=== PATIENT | female | born 1950 | race Caucasian/White ===

== ENCOUNTER 2018-08-07 10:58 | Emergency (ER) | payer OTHER, BC ==
--- OUTSIDE RECORDS SUMMARY | 2018-08-07 11:00 | XMS REPORT | Clinical Summary ---
:1950 Author Organization [facility] Address [address] [place] [address] Care Team Providers Name Role Phone LcJonathan glover Primary Care Provider Allergies Active Allergy Reactions Severity Noted Date Comments Adhesive Rash Low 11/03/2017 Codeine Anaphylaxis High 11/02/2017 Medications Medication Sig Dispensed Refills Start Date End Date Status losartan (COZAAR) 50 MG Take 50 mg by 0 Active tablet mouth daily. DULoxetine (CYMBALTA) 60 Take 60 mg by 0 Active MG capsule mouth daily. pantoprazole (PROTONIX) Take 40 mg by 0 Active 40 MG tablet mouth daily. hydroCHLOROthiazide Take 25 mg by 0 Active (HYDRODIURIL) 25 MG mouth daily. tablet amoxicillin (AMOXIL) 500 Take 1 10 capsule 0 11/23/2017 MG capsule capsule (500 8 mg total) by mouth 2 (two) times daily for 5 days. traMADol (ULTRAM) 50 mg Take 2 20 tablet 0 11/23/2017 tablet tablets (100 8 mg total) by mouth every 6 (six) hours as needed for Pain for up to 5 days. Max Daily Amount: 400 mg Active Problems Not on file Encounters Date Type Specialty Care Team Description 11/23/2017 Anesthesia Event Chavez Albert MD 11/23/2017 Surgery Link, Leonel CYSTOSCOPY,INSERTION MD Bryson URETERAL STENTS 11/23/2017 Hospital Encounter Link, Leonel Massey MD 11/03/2017 Hospital Encounter Link, Leonel Massey MD 11/03/2017 Hospital Encounter Cardiology Link, Leonel Massey MD 11/03/2017 Hospital Encounter Pre-Admission Link, Leonel Massey, MD 11/03/2017 Outside Orders Leonel Garces MD 10/30/2017 Orders Only Pre-Admission Arleth Sweeney Testing after 08/06/2017 Social History Tobacco Use Types Packs/Day Years Used Date Never Smoker Smokeless Tobacco: Never Used Alcohol Use Drinks/Week oz/Week Comments No Sex Assigned at Date Recorded Not on file Job Start Date Occupation Industry Not on file Not on file Not on file Travel History Travel Start Travel End No recent travel history available. Last Filed Vital Signs Vital Sign Reading Time Taken Blood Pressure 125/90 11/23/2017 6:15 PM CDT Pulse 66 11/23/2017 6:15 PM CDT Temperature 36.6 C (97.8 F) 11/23/2017 6:00 PM CDT Respiratory Rate 16 11/23/2017 6:15 PM CDT Oxygen Saturation 96% 11/23/2017 6:15 PM CDT Inhaled Oxygen Concentration - - Weight 113.2 kg (249 lb 8 oz) 11/23/2017 10:33 AM CDT Height 168.9 cm (5' 6.5") 11/23/2017 10:33 AM CDT Body Mass Index 39.67 11/23/2017 10:33 AM CDT Plan of Treatment Not on file Implants Implanted Type Area Land Acquisition Analyst Device Shelf Model / Identifier Expiration Serial / Date Lot Set Stent Injection 6x26cm [id number] - [id number] Uro Stent Right: [place] [id number] / Implanted: Qty: 1 on 11/23/2017 by Leonel Garces MD [employer]: ONCOLOGY / [id number] Procedures Procedure Name Priority Date/Time Associated Comments Diagnosis [place] MATHEMATICAL STATISTICIAN IN OR 30 Routine 11/23/2017 5:15 Results for this MINUTE INCREMENTS PM CDT procedure are in the results section. STONE ANALYSIS Routine 11/23/2017 4:24 Results for this PM CDT procedure are in the results section. CYSTOSCOPY,BALLOON 11/23/2017 2:30 Renal stone DILATION URETERAL PM CDT STRICTURE CYSTOSCOPY,URETEROSCO 11/23/2017 2:30 Renal stone PY W/ LASER PM CDT LITHOTRIPSY CYSTOSCOPY,INSERTION 11/23/2017 2:30 Renal stone URETERAL STENTS PM CDT XR CHEST 2 VIEWS Routine 11/03/2017 11:01 Results for this AM CDT procedure are in the results section. CBC W/PLT COUNT & Routine 11/03/2017 10:39 Results for this AUTO DIFFERENTIAL AM CDT procedure are in the results section. URINALYSIS W/ Routine 11/03/2017 10:39 Results for this MICROSCOPIC AM CDT procedure are in the results section. BASIC METABOLIC PANEL Routine 11/03/2017 10:39 Results for this (7) AM CDT procedure are in the results section. CBC W/PLT COUNT & Routine 11/03/2017 10:39 Results for this AUTO DIFFERENTIAL AM CDT procedure are in the results section. URINE CULTURE Routine 11/03/2017 10:39 Results for this AM CDT procedure are in the results section. ECG 12-LEAD Routine 11/03/2017 9:41 AM CDT Procedure Note - Interface, External Ris In - 11/03/2017 11:01 AM CDT Ventricular Rate 57 BPM Atrial Rate 57 BPM P-R Interval 158 ms QRS Duration 90 ms Q-T Interval 420 ms QTC Calculation(Bazett) 408 ms P Myrtle 14 degrees R Myrtle -33 degrees T Myrtle 41 degrees Sinus bradycardia Left axis deviation Voltage criteria for left ventricular hypertrophy Abnormal ECG No previous ECGs available ECG 12-LEAD Routine 11/03/2017 9:41 AM CDT after 08/06/2017 Results [place] radio repairer in or 30 minute increments (11/23/2017 5:15 PM CDT) Narrative Performed At FINAL REPORT [facility] Fluoroscopy nonspecific dated November 23, 1017 Comment: Total fluoroscopy time was 4 minutes and 29 seconds. Total number of fluoroscopy images were 1. The fluoroscopy study was provided to Dr. Garces for intraoperative procedure. No radiologist was present during the examination. Signed: Denita Garvey MD Report Verified Date/Time:11/23/2017 17:59:05 Reading Location: [address] Radiology Reading Room Procedure Note Interface, External Ris In - 11/23/2017 6:01 PM CDT FINAL REPORT Fluoroscopy nonspecific dated November 23, 1017 Comment: Total fluoroscopy time was 4 minutes and 29 seconds. Total number of fluoroscopy images were 1. The fluoroscopy study was provided to Dr. Garces for intraoperative procedure. No radiologist was present during the examination. Signed: Denita Garvey MD Report Verified Date/Time: 11/23/2017 17:59:05 Reading Location: [address] Radiology Reading Room Performing Organization Address [facility] Phone Number GE RIS STONE ANALYSIS (11/23/2017 4:24 PM CDT) Stone Source KIDNEY [facility] Nidus Not observed [facility] COMPONENT 1 ([facility]) See Below [facility] Comment: INCORPORATED Calcium Oxalate Dihydrate (Weddellite) 20% Calcium Oxalate Monohydrate (Whewellite) 80% COMPONENT 2 ([facility]) DNR [facility] Stone Weight 0.0760 g [facility] Comment: INCORPORATED The image will follow, unless test is cancelled or no picture is available to report. This test was developed and its analytical performance characteristics have been determined by [facility]. It has not been cleared or approved by the US Food and Drug Administration. This assay has been validated pursuant to the CLIA regulations and is used for clinical purposes. Specimen Calculus - Ureter, Right Narrative Performed At Performing Lab [facility] *[facility] [employer] [facility], [address] [place] [phone] Holly Bro MD, PhD Performing Organization Address [facility] Phone Number [facility], [place] [address] [facility] [address] [facility] XR chest 2 views (11/03/2017 11:01 AM CDT) Narrative Performed At FINAL REPORT [employer] Chest, 2 views. Clinical History: pre op Comparison Study: None Findings:The heart and lungs are within normal limits.The pleural spaces are clear.No significant bony or soft tissue abnormalities are seen. Impression: No active cardiopulmonary disease. Signed: Bong Oh MD Report Verified Date/Time:11/03/2017 11:09:46 Reading Location: [address] Radiology Reading Room Procedure Note Interface, External Ris In - 11/03/2017 11:11 AM CDT FINAL REPORT Chest, 2 views. Clinical History: pre op Comparison Study: None Findings: The heart and lungs are within normal limits. The pleural spaces are clear. No significant bony or soft tissue abnormalities are seen. Impression: No active cardiopulmonary disease. Signed: Bong Oh MD Report Verified Date/Time: 11/03/2017 11:09:46 Reading Location: [address] Radiology Reading Room Performing Organization Address City/State/Zipcode Phone Number GE RIS CBC with platelet count + automated diff (11/03/2017 10:39 AM CDT) WBC 7.9 3.5 - 10.5 K/L [facility] [place] RBC 5.56 (H) 3.93 - 5.22 M/L [facility] [place] Hemoglobin 14.8 11.2 - 15.7 GM/DL [facility] [place] Hematocrit 47.8 (H) 34.1 - 44.9 % [facility] [place] MCV 86.0 79.4 - 94.[address] [facility] [place] MCH 26.6 25.6 - 32.[address] [facility] MCHC 31.0 (L) 32.2 - 35.5 GM/DL [facility] [place] RDW 14.0 11.7 - 14.4 % [facility] [place] Platelets 304 150 - 450 K/CU MM [facility] [place] MPV 10.1 9.4 - 12.[address] [facility] nRBC 0 0 - 0 /[address] [facility] % Neutros 57 % [facility] [place] % Lymphs 32 % [facility] % Monos 8 % [facility] % Eos 2 % [facility] % Baso 1 % [facility] [place] # Neutros 4.48 1.56 - 6.13 K/L [facility] # Lymphs 2.51 1.18 - 3.74 K/L [facility] [place] # Monos 0.65 (H) 0.24 - 0.36 K/L [facility] [place] # Eos 0.12 0.04 - 0.36 K/L [facility] [place] # Baso 0.06 0.01 - 0.08 K/L [facility] [place] [place] Immature Granulocytes-Relative 1 0 - 1 % [facility] [place] Specimen Blood Performing Organization Address City/State/Zipcode Phone Number [facility] [address] [place] [address] CENTER Urinalysis w/Microscopic (11/03/2017 10:39 AM CDT) Color, UA Light Yellow [facility] [place] [place] Clarity, UA Clear [facility] Specific [place], UA 1.004 1.001 - 1.[address] [facility] [place] [place] pH, UA 5.5 5.0 - 8.[address] [facility] [place] Protein, UA Negative Negative [facility] [place] Glucose, UA Negative Negative [facility] Ketones, UA Negative Negative [facility] [place] Bilirubin, UA Negative Negative [facility] [place] Blood, UA Negative Negative [facility] [place] Nitrite, UA Negative Negative [facility] [place] [place] Leukocytes, UA Large (A) Negative [facility] Urobilinogen, UA 0.2 0.2 - 1.0 mg/dL [facility] [place] RBC, UA 2 /HPF [facility] WBC, UA 2 /HPF [facility] [place] [place] Bacteria, UA Rare [facility] Mucus Rare [facility] [place] Squam Epithel, UA 3 /HPF [facility] [place] Specimen Source [facility] Specimen Urine Performing Organization Address [facility]/Zipcode Phone Number [address] [phone] [place] Urine culture (11/03/2017 10:39 AM CDT) Result [facility] Result >100,000 col/mL Enterococcus [facility] species (A) [facility]ENTER Result >100,000 col/mL Enterococcus [facility] species (A)Comment: of a second MEDICAL CENTER type Specimen Urine Narrative Performed At 40-49,000 col/mL skin law [facility] [place] [place] Organism Antibiotic Method Susceptibility Enterococcus species Ampicillin <=2: Susceptible Enterococcus species Linezolid 2: Susceptible Enterococcus species Nitrofurantoin <=16: Susceptible Enterococcus species Tetracycline >=16: Resistant Enterococcus species Vancomycin 2: Susceptible Enterococcus species Ampicillin <=2: Susceptible Enterococcus species Linezolid 2: Susceptible Enterococcus species Nitrofurantoin <=16: Susceptible Enterococcus species Tetracycline >=16: Resistant Enterococcus species Vancomycin 2: Susceptible Performing Organization Address [facility]/Zipcode Phone Number [address] [address] [phone] [place] Basic Metabolic Panel (11/03/2017 10:39 AM CDT) Sodium 140 136 - 145 meq/L [facility] [place] Potassium 4.1 3.5 - 5.1 meq/L [facility] [place] Chloride 101 98 - 107 meq/L [facility] CO2 32 (H) 22 - 29 meq/L [facility] [place] [place] BUN 19 7 - 21 mg/dL [facility] Creatinine 1.01 0.57 - 1.25 mg/dL [facility] [place] Glucose 89 70 - 105 mg/dL [facility] [place] Calcium 10.3 (H) 8.4 - 10.2 mg/dL [facility] C[facility] EGFR 55Comment: ESTIMATED GFR IS mL/min/1.73 sq m [facility] NOT ACCURATE CREATININE MED[facility]ENTER CLEARANCE IN PREDICTING GLOMERULAR FILTRATION RATE. ESTIMATED GFR IS NOT APPLICABLE FOR DIALYSIS PATIENTS. Specimen Blood Performing Organization Address City/State/Zipcode Phone Number [facility] [address] [place] [address] [phone] CENTER ECG 12 lead (11/03/2017 9:41 AM CDT) Narrative Performed At Ventricular Rate 57 BPM GE MUSE Atrial Rate 57 BPM P-R Interval 158 ms QRS Duration 90 ms Q-T Interval 420 ms QTC Calculation(Bazett) 408 ms P Myrtle 14 degrees R Myrtle -33 degrees T Myrtle 41 degrees Sinus bradycardia Left axis deviation Voltage criteria for left ventricular hypertrophy Abnormal ECG No previous ECGs available Confirmed by MD JARED, NEMESIO ([id number]) on 11/03/2017 1:25:01 PM Procedure Note Interface, External Ris In - 11/03/2017 1:25 PM CDT Ventricular Rate 57 BPM Atrial Rate 57 BPM P-R Interval 158 ms QRS Duration 90 ms Q-T Interval 420 ms QTC Calculation(Bazett) 408 ms P Myrtle 14 degrees R Myrtle -33 degrees T Myrtle 41 degrees Sinus bradycardia Left axis deviation Voltage criteria for left ventricular hypertrophy Abnormal ECG No previous ECGs available Confirmed by MD JARED, NEMESIO ([id number]) on 11/03/2017 1:25:01 PM Performing Organization Address City/State/Zipcode Phone Number GE MUSE after 08/06/2017 Insurance Payer Benefit Plan / Subscriber ID Type Phone Address Group MEDICARE MEDICARE A B xxxxxxxxxx Medicare BLUE CROSS/BLUE BCBS INDEMNITY [place] xxxxxxxxxxxx PPO [phone] [address] [place] [address]
--- OUTSIDE RECORDS SUMMARY | 2018-08-07 11:01 | XMS REPORT ---
:1950 Author [facility] Address [address] [place] [address] Care Team Providers Name Role Phone LINK, LYNDSEY WATSON Unavailable Unavailable Problems This patient has no known problems. Allergies, Adverse Reactions, Alerts This patient has no known allergies or adverse reactions. Medications This patient has no known medications. Results Test Description Test Time Test Comments Text Results Atomic Results Result Comments [facility] [place] 2017-11-23 17:59:00 Reason for FINAL REPORT PATIENT OR/30 MINUTE exam:->ureteral stent ID: [id number] INCREMENTS placement Fluoroscopy nonspecific dated November 23, 1017 Comment: Total fluoroscopy time was 4 minutes and 29 seconds. Total number of fluoroscopy images were 1. The fluoroscopy study was provided to Dr. Garces for intraoperative procedure. No radiologist was present during the examination. Signed: Denita Garveyeport Verified Date/Time: 11/23/2017 17:59:05 Reading Location: [address] Radiology Reading Room E CULTURE 2017-11-07 14:16:00 Test Item Value Reference Range Comments CULTURE (BEAKER) (test rebe=2890) Ampicillin (test code=26) Linezolid (test code=40) Nitrofurantoin (test code=23) Tetracycline (test code=2) Vancomycin (test code=13) CULTURE (BEAKER) (test ENTEROCOCCUS SPECIES >100,000 col/mL Enterococcus uzwd=5673) species Ampicillin (test code=26) Linezolid (test code=40) Nitrofurantoin (test code=23) Tetracycline (test code=2) Vancomycin (test code=13) CULTURE (BEAKER) (test >100,000 col/mL Enterococcus wljx=7321) speciesof a second type 40-49,000 col/mL skin floraURINALYSIS W/ [id number] 12:00:00 Test Item Value Reference Range Comments COLOR (BEAKER) (test pkvg=166) Light Yellow CLARITY (BEAKER) (test djcf=237) Clear SPECIFIC GRAVITY UA (BEAKER) (test mmnh=179) 1.004 1.001-1.035 PH UA (BEAKER) (test txsi=670) 5.5 5.0-8.0 PROTEIN UA (BEAKER) (test timh=715) Negative Negative GLUCOSE UA (BEAKER) (test smix=957) Negative Negative KETONES UA (BEAKER) (test scpk=991) Negative Negative BILIRUBIN UA (BEAKER) (test ifsy=793) Negative Negative BLOOD UA (BEAKER) (test fdwr=491) Negative Negative NITRITE UA (BEAKER) (test rcqd=170) Negative Negative LEUKOCYTE ESTERASE UA (BEAKER) (test aesa=219) Large Negative UROBILINOGEN UA (BEAKER) (test aizo=595) 0.2 mg/dL 0.2-1.0 RBC UA (BEAKER) (test hlei=427) 2 /HPF WBC UA (BEAKER) (test yjqh=573) 2 /HPF BACTERIA (BEAKER) (test ampy=060) Rare MUCUS (BEAKER) (test kchc=7517) Rare SQUAMOUS EPITHELIAL (BEAKER) (test kjhz=475) 3 /HPF SOURCE(BEAKER) (test dixr=1005) BASIC METABOLIC [id number] 11:33:00 Test Item Value Reference Range Comments SODIUM (BEAKER) (test 140 meq/L 136-145 yuau=217) POTASSIUM (BEAKER) (test 4.1 meq/L 3.5-5.1 lpus=746) CHLORIDE (BEAKER) (test 101 meq/L 98-107 kwjf=595) CO2 (BEAKER) (test 32 meq/L 22-29 ptla=366) BLOOD UREA NITROGEN 19 mg/dL 7-21 (BEAKER) (test nhkv=530) CREATININE (BEAKER) (test 1.01 mg/dL 0.57-1.25 wetr=719) GLUCOSE RANDOM (BEAKER) 89 mg/dL 70-105 (test tjyt=360) CALCIUM (BEAKER) (test 10.3 mg/dL 8.4-10.2 prhz=740) EGFR (BEAKER) (test 55 mL/min/1.73 sq m ESTIMATED GFR IS NOT vjyd=4493) ACCURATE CREATININE CLEARANCE IN PREDICTING GLOMERULAR FILTRATION RATE. ESTIMATED GFR IS NOT APPLICABLE FOR DIALYSIS PATIENTS. CBC W/PLT COUNT & AUTO [id number] 11:11:00 Test Item Value Reference Range Comments WHITE BLOOD CELL COUNT (BEAKER) (test ohcl=854) 7.9 K/ L 3.5-10.5 RED BLOOD CELL COUNT (BEAKER) (test sgod=231) 5.56 M/ L 3.93-5.22 HEMOGLOBIN (BEAKER) (test ggld=704) 14.8 GM/DL 11.2-15.7 HEMATOCRIT (BEAKER) (test efom=488) 47.8 % 34.1-44.9 MEAN CORPUSCULAR VOLUME (BEAKER) (test mloo=041) 86.0 fL 79.4-94.8 MEAN CORPUSCULAR HEMOGLOBIN (BEAKER) (test 26.6 pg 25.6-32.2 avyj=822) MEAN CORPUSCULAR HEMOGLOBIN CONC (BEAKER) (test 31.0 GM/DL 32.2-35.5 wkpm=388) RED CELL DISTRIBUTION WIDTH (BEAKER) (test 14.0 % 11.7-14.4 hput=016) PLATELET COUNT (BEAKER) (test mkhm=752) 304 K/CU MM 150-450 MEAN PLATELET VOLUME (BEAKER) (test trsr=579) 10.1 fL 9.4-12.3 NUCLEATED RED BLOOD CELLS (BEAKER) (test 0 /100 WBC 0-0 jdje=761) NEUTROPHILS RELATIVE PERCENT (BEAKER) (test 57 % ahvg=157) LYMPHOCYTES RELATIVE PERCENT (BEAKER) (test 32 % ytdc=884) MONOCYTES RELATIVE PERCENT (BEAKER) (test 8 % dwgt=118) EOSINOPHILS RELATIVE PERCENT (BEAKER) (test 2 % vnyd=245) BASOPHILS RELATIVE PERCENT (BEAKER) (test 1 % kxqw=160) NEUTROPHILS ABSOLUTE COUNT (BEAKER) (test 4.48 K/ L 1.56-6.13 bufz=274) LYMPHOCYTES ABSOLUTE COUNT (BEAKER) (test 2.51 K/ L 1.18-3.74 zfio=231) MONOCYTES ABSOLUTE COUNT (BEAKER) (test 0.65 K/ L 0.24-0.36 qrcj=219) EOSINOPHILS ABSOLUTE COUNT (BEAKER) (test 0.12 K/ L 0.04-0.36 xlzz=477) BASOPHILS ABSOLUTE COUNT (BEAKER) (test 0.06 K/ L 0.01-0.08 yhna=400) IMMATURE GRANULOCYTES-RELATIVE PERCENT (BEAKER) 1 % 0-1 (test cdps=6043) RAD, CHEST, 2 [id number] 11:09:00Reason for exam:->pre opShould this be performed at the bedside?->NoFINAL REPORT Chest, 2 views. Clinical History: pre op Comparison Study: None Findings: The heart and lungs are within normal limits. The pleural spaces are clear. No significant bony or soft tissue abnormalities are seen. Impression: No active cardiopulmonary disease. Signed:Bong Oh MDReport Verified Date/Time: 11:09:46 Reading Location: [address] Radiology Reading Room
[2018-08-07] MEDS ORDERED: CYCLOBENZAPRINE 10 MG TAB ONE (11:42)
[2018-08-07] MEDS ORDERED: HYDROCODONE/APAP 7.5/325 MG TAB ONE (11:43)
[2018-08-07] MEDS ORDERED: KETOROLAC 30 MG/ML INJ ONE (11:43)
--- NOTE | 2018-08-07 12:51 | ER ---
Nurse's Notes [facility] Name: Estelita Vinson Age: 67 yrs Sex: Female : 1950 Arrival Date: 08/07/2018 Time: 11:02 Bed 16 Private MD: Jonathan Iqbal Diagnosis: Sciatica, left side Presentation: 08/07 11:06 Presenting complaint: Patient states: "I've done something to my back. I moved some aj1 containers and it had too much stuff in it. I moved side to side and I knew it when I did it, its my lower back." Reports low back pain that radiates down left leg for the past 2 days. States that her pain has gotten worse today. Transition of care: patient was not received from another setting of care. Onset of symptoms was August 05, 2018. Risk Assessment: Do you want to hurt yourself or someone else? Patient reports no desire to harm self or others. Initial Sepsis Screen: Does the patient meet any 2 criteria? No. Patient's initial sepsis screen is negative. Does the patient have a suspected source of infection? No. Patient's initial sepsis screen is negative. Care prior to arrival: None. 11:06 Method Of Arrival: Ambulatory aj1 11:06 Acuity: CURT 4 aj1 Triage Assessment: 11:09 General: Appears in no apparent distress. uncomfortable, Behavior is calm, cooperative, aj1 appropriate for age. Pain: Complains of pain in low back area Pain currently is 7 out of 10 on a pain scale. Neuro: Level of Consciousness is awake, alert, obeys commands. Cardiovascular: Patient's skin is warm and dry. Respiratory: Airway is patent Respiratory effort is even, unlabored, Respiratory pattern is regular, symmetrical. Musculoskeletal: Range of motion: intact in all extremities. Historical: - Allergies: 11:09 CEPHALOSPORINS; aj1 - Home Meds: 11:09 losartan 50 mg oral tab 1 tab once daily [Active]; Cymbalta 60 mg oral cpDR 1 cap once aj1 daily [Active]; hydrochlorothiazide 25 mg Oral tab 1 tab once daily [Active]; doxepin 25 mg Oral cap 1 cap once daily [Active]; - PMHx: 11:09 Hypertension; renal cell carcinoma of left kidney; aj1 - PSHx: 11:09 partial nephrectomy on the right; Cholecystectomy; Hysterectomy; aj1 - Immunization history:: Flu vaccine is not up to date. - Social history:: Smoking status: Patient/guardian denies using tobacco. - Ebola Screening: : Patient denies travel to an Ebola-affected area in the 21 days before illness onset. Screenin:15 Abuse screen: Denies threats or abuse. Nutritional screening: No deficits noted. rb1 Tuberculosis screening: No symptoms or risk factors identified. Fall Risk None identified. Assessment: 11:15 General: Appears uncomfortable, Behavior is calm, cooperative. Pain: Complains of pain rb1 in lumbar area Pain radiates to left leg Pain currently is 7 out of 10 on a pain scale. Quality of pain is described as burning. Neuro: Level of Consciousness is awake, alert, obeys commands, Oriented to person, place, time, situation. Cardiovascular: Capillary refill < 3 seconds is brisk in bilateral fingers. Respiratory: Airway is patent Respiratory effort is even, unlabored, Respiratory pattern is regular, symmetrical. GI: No signs and/or symptoms were reported involving the gastrointestinal system. : No signs and/or symptoms were reported regarding the genitourinary system. Derm: Skin is pink, warm \\T\\ dry. Musculoskeletal: Range of motion: intact in all extremities. 12:15 Reassessment: Patient appears in no apparent distress at this time. Patient and/or rb1 family updated on plan of care and expected duration. Pain level reassessed. Patient is alert, oriented x 3, equal unlabored respirations, skin warm/dry/pink. 13:00 Reassessment: Patient appears in no apparent distress at this time. Patient and/or rb1 family updated on plan of care and expected duration. Pain level reassessed. Patient is alert, oriented x 3, equal unlabored respirations, skin warm/dry/pink. decreased pain 4/10. Vital Signs: 11:09 BP 152 / 79; Pulse 97; Resp 18; Temp 97.1; Pulse Ox 96% on R/A; Weight 109.77 kg (R); aj1 Height 5 ft. 6 in. (167.64 cm) (R); Pain 7/10; 12:00 BP 129 / 78; Pulse 88; Resp 16; Pulse Ox 100% on R/A; Pain 6/10; rb1 13:00 BP 118 / 64; Pulse 68; Resp 17; Pulse Ox 99% on R/A; Pain 4/10; rb1 11:09 Body Mass Index 39.06 (109.77 kg, 167.64 cm) aj1 ED Course: 11:02 Patient arrived in ED. sb2 11:02 Jonathan Iqbal MD is Private Physician. sb2 11:07 Triage completed. aj1 11:09 Arm band placed on Patient placed in an exam room. aj1 11:11 Norberto Mendez PA is PHCP. cp 11:11 Abhilash Bender MD is Attending Physician. cp 11:15 Patient has correct armband on for positive identification. Bed in low position. Call rb1 light in reach. Side rails up X 1. Pulse ox on. NIBP on. 11:30 Rayna Malagon, RN is Primary Nurse. rb1 13:08 No provider procedures requiring assistance completed. Patient did not have IV access rb1 during this emergency room visit. Administered Medications: 11:41 Drug: TORadol 60 mg Route: IM; Site: left gluteus; rb1 12:10 Follow up: Response: No adverse reaction; Pain is decreased rb1 11:41 Drug: Hydrocodone-Acetaminophen (7.5 mg-325 mg) 1 tabs Route: PO; rb1 12:10 Follow up: Response: No adverse reaction; Pain is decreased rb1 11:41 Drug: Flexeril 10 mg Route: PO; rb1 12:10 Follow up: Response: No adverse reaction; Pain is decreased rb1 Outcome: 12:50 Discharge ordered by MD. cp 13:08 Discharged to home ambulatory, with significant other. rb1 13:08 Condition: stable 13:08 Discharge instructions given to patient, Instructed on discharge instructions, follow up and referral plans. medication usage, Demonstrated understanding of instructions, follow-up care, medications, Prescriptions given X 3. 13:09 Patient left the ED. rb1 Signatures: Aminah Jerry RN RN aj1 Norberto Mendez PA PA cp Rayna Malagon, RN RN rb1 Arline Thompson sb2
--- NOTE | 2018-08-07 12:51 | EDPHYS ---
Physician Documentation [facility] Name: Estelita Vinson Age: 67 yrs Sex: Female : 1950 Arrival Date: 08/07/2018 Time: 11:02 Bed 16 Private MD: Jonathan Iqbal ED Physician Abhilash Bender HPI: 08/07 11:19 This 67 yrs old Female presents to ER via Ambulatory with complaints of Back cp Pain. 11:19 The patient presents with pain that is acute. The symptoms are located in the low back. cp Onset: The symptoms/episode began/occurred 2 day(s) ago. The pain radiates to the posterior aspect left leg. Associated signs and symptoms: Pertinent negatives: abdominal pain, constipation, dysuria, fever, incontinence, numbness, urinary retention, weakness. 11:20 The problem was sustained turning while lifting and moving storage containers. cp Modifying factors: the patient symptoms are aggravated by bending, movement. Severity of symptoms: in the emergency department the symptoms are unchanged, despite home interventions. Historical: - Allergies: 11:09 CEPHALOSPORINS; aj1 - Home Meds: 11:09 losartan 50 mg oral tab 1 tab once daily [Active]; Cymbalta 60 mg oral cpDR 1 cap once aj1 daily [Active]; hydrochlorothiazide 25 mg Oral tab 1 tab once daily [Active]; doxepin 25 mg Oral cap 1 cap once daily [Active]; - PMHx: 11:09 Hypertension; renal cell carcinoma of left kidney; aj1 - PSHx: 11:09 partial nephrectomy on the right; Cholecystectomy; Hysterectomy; aj1 - Immunization history:: Flu vaccine is not up to date. - Social history:: Smoking status: Patient/guardian denies using tobacco. - Ebola Screening: : Patient denies travel to an Ebola-affected area in the 21 days before illness onset. ROS: 11:21 Eyes: Negative for injury, pain, redness, and discharge. cp 11:21 Constitutional: Negative for body aches, chills, fever, poor PO intake. 11:21 ENT: Negative for drainage from ear(s), ear pain, sore throat, difficulty swallowing, difficulty handling secretions. 11:21 Cardiovascular: Negative for chest pain, edema, palpitations. 11:21 Respiratory: Negative for cough, shortness of breath, wheezing. 11:21 Abdomen/GI: Negative for abdominal pain, nausea, vomiting, and diarrhea, bowel incontinence. 11:21 Back: Positive for pain at rest, pain with movement, of the low back area. 11:21 : Negative for urinary symptoms, difficulty urinating, bladder incontinence. 11:21 Skin: Negative for cellulitis, rash. 11:21 Neuro: Negative for altered mental status, headache, numbness, weakness. 11:21 All other systems are negative. Exam: 11:23 Head/Face: Normocephalic, atraumatic. cp 11:23 Constitutional: The patient appears in no acute distress, alert, awake, non-toxic, well developed, well nourished, uncomfortable. 11:23 Eyes: Periorbital structures: appear normal, Conjunctiva: normal, no exudate, no injection, Sclera: no appreciated abnormality, Lids and lashes: appear normal, bilaterally. 11:23 ENT: External ear(s): are unremarkable, Nose: is normal, Mouth: is normal, Posterior pharynx: is normal, airway is patent. 11:23 Chest/axilla: Inspection: normal. 11:23 Cardiovascular: Rate: normal, Rhythm: regular. 11:23 Respiratory: the patient does not display signs of respiratory distress, Respirations: normal, no use of accessory muscles, no retractions, no splinting, no tachypnea, labored breathing, is not present. 11:23 Abdomen/GI: Exam negative for discomfort, distension, guarding, Inspection: abdomen appears normal. 11:23 Back: pain, that is moderate, of the lumbar area and left low back, ROM is painful, with all movement, Straight leg raises: of both lower extremities does not illicit pain. 11:23 Neuro: Motor: moves all fours, strength is normal, Sensation: no obvious gross deficits, Gait: is steady, Deep tendon reflexes are 2+ (normal) in the right patellar, right Achilles, left patellar and left Achilles. Vital Signs: 11:09 BP 152 / 79; Pulse 97; Resp 18; Temp 97.1; Pulse Ox 96% on R/A; Weight 109.77 kg (R); aj1 Height 5 ft. 6 in. (167.64 cm) (R); Pain 7/10; 12:00 BP 129 / 78; Pulse 88; Resp 16; Pulse Ox 100% on R/A; Pain 6/10; rb1 13:00 BP 118 / 64; Pulse 68; Resp 17; Pulse Ox 99% on R/A; Pain 4/10; rb1 11:09 Body Mass Index 39.06 (109.77 kg, 167.64 cm) aj1 MDM: 11:12 Patient medically screened. cp 11:30 Differential diagnosis: Pyelonephritis Renal Infarction ruptured disc, UTI, cp pyelonephritis,, sciatica, cauda equina. 12:48 Data reviewed: vital signs, nurses notes. cp 12:48 Counseling: I had a detailed discussion with the patient and/or guardian regarding: the cp historical points, exam findings, and any diagnostic results supporting the discharge/admit diagnosis, the need for outpatient follow up, a family practitioner, to return to the emergency department if symptoms worsen or persist or if there are any questions or concerns that arise at home. Response to treatment: the patient's symptoms have markedly improved after treatment, and as a result, I will discharge patient. Administered Medications: 11:41 Drug: TORadol 60 mg Route: IM; Site: left gluteus; rb1 12:10 Follow up: Response: No adverse reaction; Pain is decreased rb1 11:41 Drug: Hydrocodone-Acetaminophen (7.5 mg-325 mg) 1 tabs Route: PO; rb1 12:10 Follow up: Response: No adverse reaction; Pain is decreased rb1 11:41 Drug: Flexeril 10 mg Route: PO; rb1 12:10 Follow up: Response: No adverse reaction; Pain is decreased rb1 Disposition: 08/08 07:51 Co-signature as Attending Physician, Abhilash Bender MD. Disposition: 08/07/18 12:50 Discharged to Home. Impression: Sciatica, left side. - Condition is Stable. - Discharge Instructions: Sciatica, Back Exercises. - Prescriptions for Cyclobenzaprine 10 mg Oral Tablet - take 1 tablet by ORAL route every 8 hours As needed; 20 tablet. Tramadol 50 mg Oral Tablet - take 1 tablet by ORAL route every 8 hours as needed; 15 tablet. Medrol (Krishna) 4 mg Oral Tablets, Dose Pack - take 1 tablet by ORAL route as directed - follow package instructions; 1 packet. - Medication Reconciliation Form, Thank You Letter, Antibiotic Education, Prescription Opioid Use form. - Follow up: Private Physician; When: 2 - 3 days; Reason: Recheck today's complaints. - Problem is new. - Symptoms have improved. Signatures: Dispatcher [employer] EDMS Aminah Jerry RN RN aj1 Norberto Mendez PA PA cp Barber, Rebecca, RN RN rb1 Abhilash Bender MD MD gs Corrections: (The following items were deleted from the chart) 08/07 13:05 11:19 Urine Dipstick-Ancillary ordered. cp rb1 13:09 12:50 08/07/2018 12:50 Discharged to Home. Impression: Sciatica, left side. Condition rb1 is Stable. Forms are Medication Reconciliation Form, Thank You Letter, Antibiotic Education, Prescription Opioid Use. Follow up: Private Physician; When: 2 - 3 days; Reason: Recheck today's complaints. Problem is new. Symptoms have improved. cp
[2018-08-07 13:15] VITALS: TEMP 97.1
[2018-08-07 13:17] VITALS: BP 118/64; O2SAT 99
== END 2018-08-07 13:09 | disposition home or self-care (01) ==
LOC: ER 10:58
DX: M54.32 Sciatica, left side (principal); I10 Essential (primary) hypertension; Z88.3 Allergy status to other anti-infective agents; Z85.528 Personal history of other malignant neoplasm of kidney
CPT/HCPCS: 96372; 99283

== ENCOUNTER 2018-11-29 09:08 | Emergency (ER) | payer OTHER, BC ==
--- OUTSIDE RECORDS SUMMARY | 2018-11-29 09:11 | XMS REPORT | Clinical Summary ---
:1950 Author Organization [facility] Address [address] [place] [address] Care Team Providers Name Role Phone Jonathan Iqbaldoug Primary Care Provider Allergies Active Allergy Reactions [...] 400 mg Active Problems Not on file Social History Tobacco Use Types Packs/Day Years Used Date Never Smoker Smokeless Tobacco: Never Used Alcohol Use Drinks/Week oz/Week Comments No Sex Assigned at Date Recorded Not on file Job Start Date Occupation Industry Not on file Not on file Not on file Travel History Travel Start Travel End No recent travel history available. 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
--- OUTSIDE RECORDS SUMMARY | 2018-11-29 09:12 | XMS REPORT ---
:1950 Author Organization [facility] Address [address] [place] [address] Care Team Providers Name Role Phone LINK, LYNDSEY WATSON Unavailable Unavailable Problems This patient has no known problems. Allergies, Adverse Reactions, Alerts This patient has no known allergies or adverse reactions. Medications This patient has no known medications. Results Test Description Test Time Test Comments Text Results Atomic Results Result Comments CHYNA AEST IN 2017-11-23 17:59:00 Reason for FINAL REPORT PATIENT OR/30 MINUTE exam:->ureteral stent ID: [id number] INCREMENTS placement Fluoroscopy nonspecific dated November 23, 1017 Comment: Total fluoroscopy time was 4 minutes and 29 seconds. Total number of fluoroscopy images were 1. The fluoroscopy study was provided to Dr. Garces for intraoperative procedure. No radiologist was present during the examination. Signed: Denita Garveyeport Verified Date/Time: 11/23/2017 17:59:05 Reading Location: [address] Radiology Reading Room E CULTURE 2017-11-07 14:16:00 Test Item Value Reference Range Comments CULTURE (BEAKER) (test lonj=0163) Ampicillin (test code=26) Linezolid (test code=40) Nitrofurantoin (test code=23) Tetracycline (test code=2) Vancomycin (test code=13) CULTURE (BEAKER) (test ENTEROCOCCUS SPECIES >100,000 col/mL Enterococcus ktrn=9589) species Ampicillin (test code=26) Linezolid (test code=40) Nitrofurantoin (test code=23) Tetracycline (test code=2) Vancomycin (test code=13) CULTURE (BEAKER) (test >100,000 col/mL Enterococcus deaq=2509) speciesof a second type 40-49,000 col/mL skin floraURINALYSIS W/ [id number] 12:00:00 Test Item Value Reference Range Comments COLOR (BEAKER) (test hmoq=373) Light Yellow CLARITY (BEAKER) (test vzlc=019) Clear SPECIFIC GRAVITY UA (BEAKER) (test szjz=099) 1.004 1.001-1.035 PH UA (BEAKER) (test eyhv=374) 5.5 5.0-8.0 PROTEIN UA (BEAKER) (test ibnr=005) Negative Negative GLUCOSE UA (BEAKER) (test jftv=664) Negative Negative KETONES UA (BEAKER) (test jnvu=074) Negative Negative BILIRUBIN UA (BEAKER) (test aows=102) Negative Negative BLOOD UA (BEAKER) (test xvhf=230) Negative Negative NITRITE UA (BEAKER) (test vzel=529) Negative Negative LEUKOCYTE ESTERASE UA (BEAKER) (test eedv=012) Large Negative UROBILINOGEN UA (BEAKER) (test vkqn=661) 0.2 mg/dL 0.2-1.0 RBC UA (BEAKER) (test uwgc=872) 2 /HPF WBC UA (BEAKER) (test zpnt=216) 2 /HPF BACTERIA (BEAKER) (test vtpq=052) Rare MUCUS (BEAKER) (test rupm=3696) Rare SQUAMOUS EPITHELIAL (BEAKER) (test erve=879) 3 /HPF SOURCE(BEAKER) (test auqu=9360) BASIC METABOLIC [id number] 11:33:00 Test Item Value Reference Range Comments SODIUM (BEAKER) (test 140 meq/L 136-145 ppuq=778) POTASSIUM (BEAKER) (test 4.1 meq/L 3.5-5.1 dyiu=603) CHLORIDE (BEAKER) (test 101 meq/L 98-107 cmmo=075) CO2 (BEAKER) (test 32 meq/L 22-29 fhhe=827) BLOOD UREA NITROGEN 19 mg/dL 7-21 (BEAKER) (test pisv=573) CREATININE (BEAKER) (test 1.01 mg/dL 0.57-1.25 wxcc=235) GLUCOSE RANDOM (BEAKER) 89 mg/dL 70-105 (test bbou=479) CALCIUM (BEAKER) (test 10.3 mg/dL 8.4-10.2 tlhn=566) EGFR (BEAKER) (test 55 mL/min/1.73 sq m ESTIMATED GFR IS NOT okhu=8377) ACCURATE CREATININE CLEARANCE IN PREDICTING GLOMERULAR FILTRATION RATE. ESTIMATED GFR IS NOT APPLICABLE FOR DIALYSIS PATIENTS. CBC W/PLT COUNT & AUTO [id number] 11:11:00 Test Item Value Reference Range Comments WHITE BLOOD CELL COUNT (BEAKER) (test rced=895) 7.9 K/ L 3.5-10.5 RED BLOOD CELL COUNT (BEAKER) (test ccdo=611) 5.56 M/ L 3.93-5.22 HEMOGLOBIN (BEAKER) (test imfd=299) 14.8 GM/DL 11.2-15.7 HEMATOCRIT (BEAKER) (test ilpo=271) 47.8 % 34.1-44.9 MEAN CORPUSCULAR VOLUME (BEAKER) (test powm=661) 86.0 fL 79.4-94.8 MEAN CORPUSCULAR HEMOGLOBIN (BEAKER) (test 26.6 pg 25.6-32.2 lmoz=513) MEAN CORPUSCULAR HEMOGLOBIN CONC (BEAKER) (test 31.0 GM/DL 32.2-35.5 nkzw=972) RED CELL DISTRIBUTION WIDTH (BEAKER) (test 14.0 % 11.7-14.4 zypd=122) PLATELET COUNT (BEAKER) (test nzbz=759) 304 K/CU MM 150-450 MEAN PLATELET VOLUME (BEAKER) (test nklv=463) 10.1 fL 9.4-12.3 NUCLEATED RED BLOOD CELLS (BEAKER) (test 0 /100 WBC 0-0 hjqv=811) NEUTROPHILS RELATIVE PERCENT (BEAKER) (test 57 % zxak=456) LYMPHOCYTES RELATIVE PERCENT (BEAKER) (test 32 % jnqb=017) MONOCYTES RELATIVE PERCENT (BEAKER) (test 8 % bfsf=411) EOSINOPHILS RELATIVE PERCENT (BEAKER) (test 2 % hesm=286) BASOPHILS RELATIVE PERCENT (BEAKER) (test 1 % xsbt=086) NEUTROPHILS ABSOLUTE COUNT (BEAKER) (test 4.48 K/ L 1.56-6.13 nvqn=171) LYMPHOCYTES ABSOLUTE COUNT (BEAKER) (test 2.51 K/ L 1.18-3.74 yjga=189) MONOCYTES ABSOLUTE COUNT (BEAKER) (test 0.65 K/ L 0.24-0.36 zmme=641) EOSINOPHILS ABSOLUTE COUNT (BEAKER) (test 0.12 K/ L 0.04-0.36 hsyh=433) BASOPHILS ABSOLUTE COUNT (BEAKER) (test 0.06 K/ L 0.01-0.08 dqhv=838) IMMATURE GRANULOCYTES-RELATIVE PERCENT (BEAKER) 1 % 0-1 (test kqze=1841) RAD, CHEST, 2 [id number] 11:09:00Reason for exam:->pre opShould this be performed at the bedside?->NoFINAL REPORT Chest, 2 views. Clinical History: pre op Comparison Study: None Findings: The heart and lungs are within normal limits. The pleural spaces are clear. No significant bony or soft tissue abnormalities are seen. Impression: No active cardiopulmonary disease. Signed:Bong Oh MDReport Verified Date/Time: 11:09:46 Reading Location: [address] Radiology Reading Room
[2018-11-29] MEDS ORDERED: DIAZEPAM 10 MG/2 ML INJ SYRINGE ONE (09:53)
[2018-11-29] MEDS ORDERED: MECLIZINE HCL 12.5 MG TAB ONE (09:53)
[2018-11-29 09:59] LABS: Absolute Lymphocytes (CBC) 2.1 K/uL (0.7-4.9); Absolute Monocytes 0.4 K/uL (0.1-1.3); Absolute Neutrophil 3.9 K/uL (1.8-8.0); Basophils % 0.3 % (0-1.3); Eosinophils % 1.5 % (0-4.4); Hematocrit 45.9 % (36.0-45.0); Lymphocytes % 32.4 % (15.3-44.8); MPV 8.3 fL (7.6-11.3); Monocytes % 6.2 % (3.3-12.3); RBC Red Blood Cell Count 5.42 M/uL (3.86-4.86)
--- NOTE | 2018-11-29 10:02 | RAD REPORT ---
EXAM DESCRIPTION: CT - Head Brain Wo Cont - 11/29/2018 9:57 am CLINICAL HISTORY: Weakness, dizziness, near syncope COMPARISON: None. TECHNIQUE: Axial 5 mm thick images of the head were obtained without IV contrast. All CT scans are performed using dose optimization technique as appropriate and may include automated exposure control or mA/KV adjustment according to patient size. FINDINGS: No intracranial hemorrhage, mass, edema or shift of mid-line structures. No acute infarcti on changes seen. No abnormal extra-axial fluid collections. Patient has minimal atrophy and chronic i schemic change. Ventricles are in proportion. Arterial and physiologic calcifications are present. Mastoid air cells and visualized portions of the paranasal sinuses are clear. No acute bony findings. IMPRESSION: Negative non-contrast CT head examination for acute finding. Minimal atrophy and chronic ischemic change.
[2018-11-29 10:15] LABS: Potassium 3.5 mmol/L (3.5-5.1)
--- NOTE | 2018-11-29 10:59 | EDPHYS ---
Physician Documentation [facility] Name: Estelita Vinson Age: 67 yrs Sex: Female : 1950 Arrival Date: 11/29/2018 Time: 09:11 Bed 7 Private MD: Jonathan Iqbal ED Physician Lei Macedo HPI: 11/29 10:09 This 67 yrs old Female presents to ER via Ambulatory with complaints of jr8 Dizziness. 10:09 The patient presents with dizziness, sense of spinning, vertigo. Onset: The jr8 symptoms/episode began/occurred acutely, 3 day(s) ago. Context: occurred at home, occurred while the patient was getting up from bed, just prior to the episode the patient experienced no apparent symptoms. Modifying factors: The symptoms are alleviated by nothing, the symptoms are aggravated by movement of head, standing up, changing position. Associated signs and symptoms: The patient has no apparent associated signs or symptoms. Severity of symptoms: At their worst the symptoms were moderate in the emergency department the symptoms are unchanged. Patient's baseline: Neuro: alert and fully oriented, Motor: no deficits, Ambulation: walks without assistance, Speech: normal. The patient has not experienced similar symptoms in the past. The patient has not recently seen a physician. Historical: - Allergies: 09:16 CEPHALOSPORINS; ss 09:16 Codeine; ss - Home Meds: 09:16 Cymbalta 60 mg Oral cpDR 1 cap once daily [Active]; losartan 50 mg Oral tab 1 tab once ss daily [Active]; hydrochlorothiazide 25 mg Oral tab 1 tab once daily [Active]; doxepin 25 mg Oral cap 1 cap once daily [Active]; - PMHx: 09:16 Hypertension; renal cell carcinoma of left kidney; ss - PSHx: 09:16 partial nephrectomy on the right; Cholecystectomy; Hysterectomy; ss - Immunization history:: Adult Immunizations up to date. - Social history:: Smoking status: Patient/guardian denies using tobacco. - Ebola Screening: : Patient denies exposure to infectious person Patient denies travel to an Ebola-affected area in the 21 days before illness onset. ROS: 10:09 Eyes: Negative for injury, pain, redness, and discharge, ENT: Negative for injury, jr8 pain, and discharge, Neck: Negative for injury, pain, and swelling, Cardiovascular: Negative for chest pain, palpitations, and edema, Respiratory: Negative for shortness of breath, cough, wheezing, and pleuritic chest pain, Abdomen/GI: Negative for abdominal pain, nausea, vomiting, diarrhea, and constipation, Back: Negative for injury and pain, MS/Extremity: Negative for injury and deformity, Skin: Negative for injury, rash, and discoloration. 10:09 Neuro: Positive for dizziness. Exam: 10:09 Eyes: Pupils equal round and reactive to light, extra-ocular motions intact. Lids and jr8 lashes normal. Conjunctiva and sclera are non-icteric and not injected. Cornea within normal limits. Periorbital areas with no swelling, redness, or edema. ENT: Nares patent. No nasal discharge, no septal abnormalities noted. Tympanic membranes are normal and external auditory canals are clear. Oropharynx with no redness, swelling, or masses, exudates, or evidence of obstruction, uvula midline. Mucous membranes moist. Neck: Trachea midline, no thyromegaly or masses palpated, and no cervical lymphadenopathy. Supple, full range of motion without nuchal rigidity, or vertebral point tenderness. No Meningismus. Cardiovascular: Regular rate and rhythm with a normal S1 and S2. No gallops, murmurs, or rubs. Normal PMI, no JVD. No pulse deficits. Respiratory: Lungs have equal breath sounds bilaterally, clear to auscultation and percussion. No rales, rhonchi or wheezes noted. No increased work of breathing, no retractions or nasal flaring. Abdomen/GI: Soft, non-tender, with normal bowel sounds. No distension or tympany. No guarding or rebound. No evidence of tenderness throughout. Back: No spinal tenderness. No costovertebral tenderness. Full range of motion. Skin: Warm, dry with normal turgor. Normal color with no rashes, no lesions, and no evidence of cellulitis. MS/ Extremity: Pulses equal, no cyanosis. Neurovascular intact. Full, normal range of motion. Neuro: Awake and alert, GCS 15, oriented to person, place, time, and situation. Cranial nerves II-XII grossly intact. Motor strength 5/5 in all extremities. Sensory grossly intact. Cerebellar exam normal. Normal gait. Vital Signs: 09:13 Pulse 65; Resp 16; Temp 97.7(TE); Pulse Ox 98% on R/A; Weight 114.31 kg; Height 5 ft. 6 ss in. (167.64 cm); Pain 0/10; 09:16 BP 137 / 80; ss 10:03 BP 127 / 80; Pulse 54; Resp 16; Pulse Ox 96% on R/A; sv 10:38 BP 135 / 73; Pulse 53; Resp 16; Pulse Ox 99% ; sv 09:13 Body Mass Index 40.67 (114.31 kg, 167.64 cm) NIH Stroke Scale Scores: 09:35 NIHSS Score: 0 sv MDM: 09:37 Patient medically screened. jr8 10:58 Data reviewed: vital signs, nurses notes, lab test result(s), radiologic studies, CT jr8 scan. Data interpreted: Pulse oximetry: on room air is 99 %. Interpretation: normal. Counseling: I had a detailed discussion with the patient and/or guardian regarding: the historical points, exam findings, and any diagnostic results supporting the discharge/admit diagnosis, lab results, the need for outpatient follow up, a family practitioner, to return to the emergency department if symptoms worsen or persist or if there are any questions or concerns that arise at home. Response to treatment: the patient's symptoms have markedly improved after treatment. 11/29 09:37 Order name: CBC with Diff; Complete Time: 10:10 11/29 09:37 Order name: Basic Metabolic Panel; Complete Time: 10:17 11/29 09:37 Order name: IV; Complete Time: 09:54 8 11/29 09:37 Order name: CT Head Brain wo Cont; Complete Time: 10:10 Administered Medications: 09:51 Drug: Valium 2 mg Route: IVP; Site: right antecubital; sv 10:30 Follow up: Response: No adverse reaction; Marked relief of symptoms sv 09:51 Drug: Meclizine 25 mg Route: PO; sv 10:30 Follow up: Response: No adverse reaction; Marked relief of symptoms sv Disposition: 11/30 07:05 Co-signature as Attending Physician, Lei Macedo MD. rn Disposition: 11/29/18 10:59 Discharged to Home. Impression: Vertigo. - Condition is Stable. - Discharge Instructions: Vertigo. - Prescriptions for Meclizine 25 mg Oral Tablet - take 1 tablet by ORAL route every 8 hours As needed; 30 tablet. Valium 2 mg Oral Tablet - take 1 tablet by ORAL route every 8 hours As needed; 20 tablet. - Medication Reconciliation Form, Thank You Letter, Antibiotic Education, Prescription Opioid Use form. - Follow up: Jonathan Iqbal MD; When: 1 week; Reason: Recheck today's complaints, Continuance of care, Re-evaluation by your physician. - Problem is new. - Symptoms have improved. NIH Stroke Scale - NIH Stroke Score Date: 11/29/2018 Time: 09:35 Total Score = 0 1a. Level of Consciousness (LOC) - 0(Alert) 1b. Level of Consciousness (LOC) (Year \T\ Age) - 0(Both) 1c. LOC Commands (Open \T\ Closes Eyes/Parachute Rigger) - 0(Both) 2. Best Gaze (Lateral Gaze Paresis) - 0(Normal) 3. Visual Field Loss - 0(No visual loss) 4. Facial Palsy - 0(Normal) 5a. Left Arm: Motor (10-second hold) - 0(No drift) 5b. Right Arm: Motor (10-second hold) - 0(No drift) 6a. Left Leg: Motor (5-second hold - always test supine) - 0(No drift) 6b. Right Leg: Motor (5-second hold - always test supine) - 0(No drift) 7. Limb Ataxia (finger/nose \T\ heel/noble - test with eyes open) - 0(Absent) 8. Sensory Loss (pinprick arms/legs/face) - 0(Normal) 9. Best Language: Aphasia (description/naming/reading) - 0(No aphasia) 10. Dysarthria (speech clarity - read or repeat words) - 0(Normal) 11. Extinction and Inattention (visual/tactile/auditory/spatial/personal) - 0(No abnormality) Initials: sv Signatures: Dispatcher [employer] EDSilke Shell RN RN sv Nieto, Roman, MD MD rn Smirch, Shelby, RN RN ss Roszak, Josh, PA PA jr8 Corrections: (The following items were deleted from the chart) 11/29 11:27 10:59 11/29/2018 10:59 Discharged to Home. Impression: Vertigo. Condition is sv Stable. Forms are Medication Reconciliation Form, Thank You Letter, Antibiotic Education, Prescription Opioid Use. Follow up: Jonathan Iqbal; When: 1 week; Reason: Recheck today's complaints, Continuance of care, Re-evaluation by your physician. Problem is new. Symptoms have improved. jr8
--- NOTE | 2018-11-29 10:59 | ER ---
Nurse's Notes [facility] Name: Estelita Vinson Age: 67 yrs Sex: Female : 1950 Arrival Date: 11/29/2018 Time: 09:11 Bed 7 Private MD: Jonathan Iqbal Diagnosis: Vertigo Presentation: 11/29 09:13 Presenting complaint: Patient states: Dizziness that is worse when repositioning that ss began 2-3 days ago. Transition of care: patient was not received from another setting of care. Onset of symptoms was November 26, 2018. Risk Assessment: Do you want to hurt yourself or someone else? Patient reports no desire to harm self or others. Initial Sepsis Screen: Does the patient have a suspected source of infection? No. Patient's initial sepsis screen is negative. Care prior to arrival: None. 09:13 Method Of Arrival: Ambulatory ss 09:13 Acuity: CURT 3 ss 09:18 Initial Sepsis Screen: Does the patient meet any 2 criteria? No. Patient's initial sv sepsis screen is negative. Historical: - Allergies: 09:16 CEPHALOSPORINS; ss 09:16 Codeine; ss - Home Meds: 09:16 Cymbalta 60 mg Oral cpDR 1 cap once daily [Active]; losartan 50 mg Oral tab 1 tab once ss daily [Active]; hydrochlorothiazide 25 mg Oral tab 1 tab once daily [Active]; doxepin 25 mg Oral cap 1 cap once daily [Active]; - PMHx: 09:16 Hypertension; renal cell carcinoma of left kidney; ss - PSHx: 09:16 partial nephrectomy on the right; Cholecystectomy; Hysterectomy; ss - Immunization history:: Adult Immunizations up to date. - Social history:: Smoking status: Patient/guardian denies using tobacco. - Ebola Screening: : Patient denies exposure to infectious person Patient denies travel to an Ebola-affected area in the 21 days before illness onset. Screenin:18 Abuse screen: Denies threats or abuse. Denies injuries from another. Nutritional sv screening: No deficits noted. Tuberculosis screening: No symptoms or risk factors identified. Fall Risk None identified. 09:35 VAN Screening: Arm Drift: Patient shows no arm weakness. Patient is VAN negative. sv Visual Disturbance: No visual disturbance noted. Aphasia: No aphasia noted. Neglect: No neglect noted. Assessment: 09:35 General: Appears in no apparent distress. uncomfortable, obese, well groomed, well sv developed, Behavior is calm, cooperative, appropriate for age. Pain: Denies pain. Neuro: Level of Consciousness is awake, alert, obeys commands, Oriented to person, place, time, situation, Urban Planning Teacher are equal bilaterally Moves all extremities. Full function Gait is steady, Speech is normal, Facial symmetry appears normal, Reports dizziness, since Thursday Denies weakness numbness headache. Respiratory: Airway is patent Respiratory effort is even, unlabored, Respiratory pattern is regular, symmetrical. Derm: Skin is pink, warm \T\ dry. 11:26 Reassessment: Patient appears in no apparent distress at this time. Patient and/or sv family updated on plan of care and expected duration. Pain level reassessed. Patient is alert, oriented x 3, equal unlabored respirations, skin warm/dry/pink. Patient denies pain at this time. Patient states feeling better. Patient states symptoms have improved. Neuro: Denies dizziness. Vital Signs: 09:13 Pulse 65; Resp 16; Temp 97.7(TE); Pulse Ox 98% on R/A; Weight 114.31 kg; Height 5 ft. 6 ss in. (167.64 cm); Pain 0/10; 09:16 BP 137 / 80; ss 10:03 BP 127 / 80; Pulse 54; Resp 16; Pulse Ox 96% on R/A; sv 10:38 BP 135 / 73; Pulse 53; Resp 16; Pulse Ox 99% ; sv 09:13 Body Mass Index 40.67 (114.31 kg, 167.64 cm) NIH Stroke Scale Scores: 09:35 NIHSS Score: 0 ED Course: 09:11 Patient arrived in ED. rg4 09:11 Jonathan Iqbal MD is Private Physician. rg4 09:14 Triage completed. ss 09:16 Arm band placed on right wrist. ss 09:17 Wai Blanca PA is PHCP. jr8 09:17 Lei Macedo MD is Attending Physician. jr8 09:17 Silke Esteves RN is Primary Nurse. sv 09:18 Patient has correct armband on for positive identification. Bed in low position. Call sv light in reach. Adult w/ patient. Door closed. Head of bed elevated. 09:30 Nurse Practitioner and/or Physician Waste Disposal Attendant to see patient. sv 09:42 Missed attempt(s): 20 gauge in right forearm. antecubital area. done by Azeem LOJA sv student. Bleeding controlled, band aid applied, catheter tip intact. 09:50 Initial lab(s) drawn, by me, sent to lab. Inserted saline lock: 20 gauge in right sv antecubital area, using aseptic technique. Blood collected. Flushed right antecubital with 5 ml normal saline. 09:55 CT Head Brain wo Cont In Process Unspecified. EDMS 09:55 CT completed. Patient tolerated procedure well. Patient moved to CT via stretcher. sj Patient moved back from CT. 10:03 Patient moved back from CT. sv 10:05 Awaiting lab results, Awaiting radiology results. sv 10:58 Jonathan Iqbal MD is Referral Physician. jr8 11:27 No provider procedures requiring assistance completed. IV discontinued, intact, sv bleeding controlled, No redness/swelling at site. Pressure dressing applied. Administered Medications: 09:51 Drug: Valium 2 mg Route: IVP; Site: right antecubital; sv 10:30 Follow up: Response: No adverse reaction; Marked relief of symptoms sv 09:51 Drug: Meclizine 25 mg Route: PO; sv 10:30 Follow up: Response: No adverse reaction; Marked relief of symptoms sv Outcome: 10:59 Discharge ordered by . jr8 11:27 Discharged to home ambulatory, with family. sv 11:27 Condition: stable 11:27 Discharge instructions given to patient, family, Instructed on discharge instructions, follow up and referral plans. no drinking with medication, no driving heavy equipment, medication usage, Demonstrated understanding of instructions, follow-up care, medications, Prescriptions given X 2. 11:27 Patient left the ED. sv NIH Stroke Scale - NIH Stroke Score Date: 11/29/2018 Time: 09:35 Total Score = 0 1a. Level of Consciousness (LOC) - 0(Alert) 1b. Level of Consciousness (LOC) (Year \T\ Age) - 0(Both) 1c. LOC Commands (Open \T\ Closes Eyes/Merchant Police) - 0(Both) 2. Best Gaze (Lateral Gaze Paresis) - 0(Normal) 3. Visual Field Loss - 0(No visual loss) 4. Facial Palsy - 0(Normal) 5a. Left Arm: Motor (10-second hold) - 0(No drift) 5b. Right Arm: Motor (10-second hold) - 0(No drift) 6a. Left Leg: Motor (5-second hold - always test supine) - 0(No drift) 6b. Right Leg: Motor (5-second hold - always test supine) - 0(No drift) 7. Limb Ataxia (finger/nose \T\ heel/noble - test with eyes open) - 0(Absent) 8. Sensory Loss (pinprick arms/legs/face) - 0(Normal) 9. Best Language: Aphasia (description/naming/reading) - 0(No aphasia) 10. Dysarthria (speech clarity - read or repeat words) - 0(Normal) 11. Extinction and Inattention (visual/tactile/auditory/spatial/personal) - 0(No abnormality) Initials: sv Signatures: Dispatcher [employer] Silke Song RN RN sv Jones, Susan sj Smirch, Shelby, RN RN ss Roszak, Josh, PA PA [facility] Rachele Zendejas 4
[2018-11-29 12:27] VITALS: TEMP 97.7
[2018-11-29 12:31] VITALS: BP 135/73; O2SAT 99
== END 2018-11-29 11:27 | disposition home or self-care (01) ==
LOC: ER 09:08
DX: R42 Dizziness and giddiness (principal); I10 Essential (primary) hypertension; Z85.53 Personal history of malignant neoplasm of renal pelvis; Z88.3 Allergy status to other anti-infective agents; Z88.5 Allergy status to narcotic agent
CPT/HCPCS: 85025; 80048; 36415; 70450; 96374; 99284; J3360

== ENCOUNTER 2019-06-01 02:17 | Emergency (ER) | payer OTHER, BC ==
[2019-06-01] MEDS ORDERED: PHENAZOPYRIDINE 100MG TAB PO ONE (02:58)
[2019-06-01 03:27] LABS: Urine Blood TRACE (NEG); Urine Glucose NEGATIVE (NEG); Urine Protein NEGATIVE (NEG); Urine pH 5.5 (5.0-7.0)
[2019-06-01 04:22] LABS: Urine Bacteria 20-50 /HPF (<20); Urine Culture Reflex Order NOT NEEDED; Urine RBC <5 /HPF (NONE SEEN)
--- NOTE | 2019-06-01 04:29 | EDPHYS ---
Physician Documentation [facility] Name: Estelita Vinson Age: 68 yrs Sex: Female : 1950 Arrival Date: 06/01/2019 Time: 02:18 Bed 6 Private MD: ED Physician Emilio Herr HPI: 06/01 03:02 This 68 yrs old Female presents to ER via Ambulatory with complaints of ps1 Urinary Incontinence. 03:02 patient has had urgency for last two days. Hx of renal cell carcinoma. Tried to use ps1 bathroom several times and small amount of urine each episode. No fever. Bladder scan 75mL. Historical: - Allergies: 02:47 CEPHALOSPORINS; bb 02:47 Codeine; bb - Home Meds: 02:47 Cymbalta 60 mg Oral cpDR 1 cap once daily [Active]; losartan 50 mg Oral tab 1 tab once bb daily [Active]; hydrochlorothiazide 25 mg Oral tab 1 tab once daily [Active]; Oxybutynin Chloride Oral [Active]; - PMHx: 02:47 Hypertension; renal cell carcinoma of left kidney; bb - PSHx: 02:47 partial nephrectomy on the right; Cholecystectomy; Hysterectomy; Tonsillectomy; bb - Immunization history:: Adult Immunizations up to date. - Social history:: Smoking status: Patient/guardian denies using tobacco. - Ebola Screening: : No symptoms or risks identified at this time. ROS: 03:02 Constitutional: Negative for fever, chills, and weight loss, Eyes: Negative for injury, ps1 pain, redness, and discharge, Cardiovascular: Negative for chest pain, palpitations, and edema, Respiratory: Negative for shortness of breath, cough, wheezing, and pleuritic chest pain, Abdomen/GI: Negative for abdominal pain, nausea, vomiting, diarrhea, and constipation, MS/Extremity: Negative for injury and deformity, Skin: Negative for injury, rash, and discoloration, Neuro: Negative for headache, weakness, numbness, tingling, and seizure. 03:02 : Positive for urinary symptoms, urinary frequency, urgency. Exam: 03:02 Constitutional: This is a well developed, well nourished patient who is awake, alert, ps1 and in no acute distress. Head/Face: Normocephalic, atraumatic. Eyes: Pupils equal round and reactive to light, extra-ocular motions intact. Lids and lashes normal. Conjunctiva and sclera are non-icteric and not injected. Chest/axilla: Normal chest wall appearance and motion. Nontender with no deformity. No lesions are appreciated. Cardiovascular: Regular rate and rhythm. No gallops, murmurs, or rubs. Normal PMI, no JVD. No pulse deficits. Respiratory: Lungs have equal breath sounds bilaterally, clear to auscultation and percussion. No rales, rhonchi or wheezes noted. No increased work of breathing, no retractions or nasal flaring. Abdomen/GI: Soft, non-tender, with normal bowel sounds. No distension or tympany. No guarding or rebound. No evidence of tenderness throughout. Skin: Warm, dry with normal turgor. Normal color with no rashes, no lesions, and no evidence of cellulitis. MS/ Extremity: Pulses equal, no cyanosis. Neurovascular intact. Full, normal range of motion. Neuro: Awake and alert, GCS 15, oriented to person, place, time, and situation. Cranial nerves II-XII grossly intact. Sensory grossly intact. Vital Signs: 02:47 BP 143 / 79; Pulse 61; Resp 16 S; Temp 97.5(O); Pulse Ox 100% on R/A; Weight 110.22 kg bb (R); Height 5 ft. 6 in. (167.64 cm) (R); Pain 7/10; 02:47 Body Mass Index 39.22 (110.22 kg, 167.64 cm) bb MDM: 03:10 Patient medically screened. ps1 04:30 Data reviewed: vital signs, nurses notes, lab test result(s), and as a result, I will ps1 discharge patient. Counseling: I had a detailed discussion with the patient and/or guardian regarding: the historical points, exam findings, and any diagnostic results supporting the discharge/admit diagnosis, the presence of at least one elevated blood pressure reading (>120/80) during this emergency department visit, lab results, to return to the emergency department if symptoms worsen or persist or if there are any questions or concerns that arise at home. 06/01 02:50 Order name: Urine Dipstick--Ancillary (enter results); Complete Time: 03:41 mw2 06/01 03:01 Order name: Urine Microscopic Only; Complete Time: 04:26 aa1 06/01 03:01 Order name: Urine Culture ps1 Administered Medications: 03:02 Drug: Pyridium 200 mg Route: PO; aa1 04:43 Follow up: Response: No adverse reaction; Marked relief of symptoms; Pain is decreased aa1 04:43 Drug: Bactrim (160 mg-800 mg (DS) 1 tablet Route: PO; aa1 04:43 Follow up: Response: Medication administered at discharge. aa1 Disposition: 06/01/19 04:28 Discharged to Home. Impression: acute cystitis. - Condition is Stable. - Discharge Instructions: Urinary Tract Infection, Adult. - Prescriptions for Pyridium 200 mg Oral Tablet - take 1 tablet by ORAL route every 8 hours for 3 days; 9 tablet. Bactrim DS 800- 160 mg Oral Tablet - take 1 tablet by ORAL route every 12 hours for 5 days; 10 tablet. - Medication Reconciliation Form, Thank You Letter, Antibiotic Education, Prescription Opioid Use form. - Follow up: Private Physician; When: As needed; Reason: Further diagnostic work-up, Recheck today's complaints, Continuance of care, Re-evaluation by your physician. Follow up: Emergency Department; When: As needed; Reason: Fever > 102 F, Worsening of condition. - Problem is new. - Symptoms are unchanged. Signatures: Dispatcher [employer] [facility] Terrie Artis RN RN aa1 Preeti Olivas RN RN Emilio Bowser MD MD ps1 Corrections: (The following items were deleted from the chart) 03:06 03:02 URINALYSIS+[id number].LAB.BRZ ordered. [facility] 04:45 04:28 06/01/2019 04:28 Discharged to Home. Impression: acute cystitis. Condition is aa1 Stable. Forms are Medication Reconciliation Form, Thank You Letter, Antibiotic Education, Prescription Opioid Use. Follow up: Private Physician; When: As needed; Reason: Further diagnostic work-up, Recheck today's complaints, Continuance of care, Re-evaluation by your physician. Follow up: Emergency Department; When: As needed; Reason: Fever > 102 F, Worsening of condition. Problem is new. Symptoms are unchanged. ps1
--- NOTE | 2019-06-01 04:29 | ER ---
Nurse's Notes [facility] Name: Estelita Vinson Age: 68 yrs Sex: Female : 1950 Arrival Date: 06/01/2019 Time: 02:18 Bed 6 Private MD: Diagnosis: acute cystitis Presentation: 06/01 02:44 Presenting complaint: Patient states: she has been having low abdominal cramping since bb yesterday pt has hx of renal cell carcinoma she has had a partial right nephrectomy and has active disease in left kidney. Pt has been having frequency and urgency but only can urinate a small amount, she is very uncomfortable and cannot sit down. Transition of care: patient was not received from another setting of care. Onset of symptoms was May 31, 2019. Risk Assessment: Do you want to hurt yourself or someone else? Patient reports no desire to harm self or others. Initial Sepsis Screen: Does the patient meet any 2 criteria? No. Patient's initial sepsis screen is negative. Does the patient have a suspected source of infection? No. Patient's initial sepsis screen is negative. Care prior to arrival: None. 02:44 Method Of Arrival: Ambulatory bb 02:44 Acuity: CURT 3 bb Historical: - Allergies: 02:47 CEPHALOSPORINS; bb 02:47 Codeine; bb - Home Meds: 02:47 Cymbalta 60 mg Oral cpDR 1 cap once daily [Active]; losartan 50 mg Oral tab 1 tab once bb daily [Active]; hydrochlorothiazide 25 mg Oral tab 1 tab once daily [Active]; Oxybutynin Chloride Oral [Active]; - PMHx: 02:47 Hypertension; renal cell carcinoma of left kidney; bb - PSHx: 02:47 partial nephrectomy on the right; Cholecystectomy; Hysterectomy; Tonsillectomy; bb - Immunization history:: Adult Immunizations up to date. - Social history:: Smoking status: Patient/guardian denies using tobacco. - Ebola Screening: : No symptoms or risks identified at this time. Screenin:40 Abuse screen: Denies threats or abuse. Denies injuries from another. Nutritional aa1 screening: No deficits noted. Tuberculosis screening: No symptoms or risk factors identified. Fall Risk None identified. Assessment: 02:40 General: Appears in no apparent distress. uncomfortable, Behavior is calm, cooperative, aa1 appropriate for age. Pain: Complains of pain in suprapubic area Quality of pain is described as crampy, Is continuous. Neuro: Level of Consciousness is awake, alert, obeys commands, Oriented to person, place, time, situation, Moves all extremities. Full function Gait is steady. Respiratory: Airway is patent Respiratory effort is even, unlabored, Respiratory pattern is regular, symmetrical. GI: No signs and/or symptoms were reported involving the gastrointestinal system. : Reports cramping, urgency, urinary frequency. EENT: No signs and/or symptoms were reported regarding the EENT system. Derm: Skin is intact, is healthy with good turgor, Skin is pink, warm \T\ dry. Musculoskeletal: Circulation, motion, and sensation intact. Capillary refill < 3 seconds. 04:43 Reassessment: Patient appears in no apparent distress at this time. Patient is alert, aa1 oriented x 3, equal unlabored respirations, skin warm/dry/pink. Discussed d/c \T\ f/u instructions with pt \T\ spouse; denies questions or concerns at this time Patient states feeling better. Patient states symptoms have improved. Vital Signs: 02:47 BP 143 / 79; Pulse 61; Resp 16 S; Temp 97.5(O); Pulse Ox 100% on R/A; Weight 110.22 kg bb (R); Height 5 ft. 6 in. (167.64 cm) (R); Pain 7/10; 02:47 Body Mass Index 39.22 (110.22 kg, 167.64 cm) bb ED Course: 02:18 Patient arrived in ED. ds1 02:29 Emilio Herr MD is Attending Physician. ps1 02:40 Patient has correct armband on for positive identification. Placed in gown. Bed in low aa1 position. Call light in reach. Pulse ox on. NIBP on. 02:46 Triage completed. bb 02:47 Arm band placed on Patient placed in an exam room, on a stretcher, on pulse oximetry. bb Family accompanied patient. 03:01 Terrie Artis, NATALY is Primary Nurse. aa1 03:03 Assist provider with ultrasound of bladder. Bladder scan completed. 74 cc. aa1 04:43 Patient did not have IV access during this emergency room visit. aa1 Administered Medications: 03:02 Drug: Pyridium 200 mg Route: PO; aa1 04:43 Follow up: Response: No adverse reaction; Marked relief of symptoms; Pain is decreased aa1 04:43 Drug: Bactrim (160 mg-800 mg (DS) 1 tablet Route: PO; aa1 04:43 Follow up: Response: Medication administered at discharge. aa1 Outcome: 04:28 Discharge ordered by . ps1 04:43 Discharged to home ambulatory, with significant other. aa1 04:43 Condition: good 04:43 Discharge instructions given to patient, significant other, Instructed on discharge instructions, follow up and referral plans. medication usage, Demonstrated understanding of instructions, follow-up care, medications, Prescriptions given X 2. 04:45 Patient left the ED. aa1 Addendum: 06/04/2019 07:36 Addendum: Culture Results: Positive urine culture. No further action required. Bacteria i w sensitive to prescribed antibiotic. Signatures: Terrie Artis RN RN aa1 Katrina Bishop ds1 Preeti Olivas RN RN bb Williams, Irene, RN RN iw Singer, Phillip, MD MD ps1
[2019-06-01 04:51] VITALS: BP 143/79; TEMP 97.5; O2SAT 100
== END 2019-06-01 04:45 | disposition home or self-care (01) ==
LOC: ER 02:17
DX: N30.00 Acute cystitis without hematuria (principal); Z88.6 Allergy status to analgesic agent
CPT/HCPCS: 81003; 81015; 87077; 87086; 87088; 87186; 99283

== ENCOUNTER 2020-08-03 14:29 | Emergency (ER) | payer OTHER, BC ==
--- OUTSIDE RECORDS SUMMARY | 2020-08-03 14:31 | XMS REPORT | Clinical Summary ---
:1950 Author Organization [facility] Address [address] [place] [address] Care Team Providers Name Role Phone Valerie Iqbal Primary Care Provider Allergies Active Allergy Reactions Severity Noted Date Comments Adhesive Rash Low 11/03/2017 Codeine Anaphylaxis High 11/02/2017 Medications Medication Sig Dispensed Refills Start Date End Date Status losartan (COZAAR) 50 MG Take 50 mg by 0 Active tablet mouth daily. DULoxetine (CYMBALTA) 60 MG Take 60 mg by 0 Active capsule mouth daily. pantoprazole (PROTONIX) 40 Take 40 mg by 0 Active MG tablet mouth daily. hydroCHLOROthiazide Take 25 mg by 0 Active (HYDRODIURIL) 25 MG tablet mouth daily. Active Problems Not on file Social History Tobacco Use Types Packs/Day Years Used Date Never Smoker Smokeless Tobacco: Never Used Alcohol Use Drinks/Week oz/Week Comments No Sex Assigned at Date Recorded Not on file Last Filed Vital Signs Not on file Plan of Treatment Health Maintenance Due Date Last Done Comments BREAST CANCER SCREENING 1950 COLON CANCER SCREENING COLONOSCOPY 1950 PNEUMOCOCCAL 65+ YRS (1 of 1 - [id number]) 12/07/2016 MEDICARE ANNUAL WELLNESS (YEAR 2 or FIRST YEAR if no 11/23/2017 IPPE) INFLUENZA VACCINE (#1) 2020 Implants Implanted Type Area Tamping Machine Operator Road Forms Device Shelf Model / Identifier Expiration Serial / Date Lot Set Stent Injection 6x26cm [id number] Uro Stent Right: CAMP LEJEUNE 05/23/2019 [id number] / Implanted: Qty: 1 on 11/23/2017 by Leonel Garces MD at [facility] [employer]COLOG[employer] / [id number] Results Not on fileafter 08/03/2019 Insurance Payer Benefit Plan / Subscriber ID Effective Phone Address T ype Group Dates MEDICARE MEDICARE A B [id number] 2016-Luis lora nt BLUE BCBS INDEMNITY [id number] 2016-Luis [phone] [address] PPO [place]OSS/[place] [id number] [place] [address]
--- OUTSIDE RECORDS SUMMARY | 2020-08-03 14:33 | XMS REPORT | Continuity of Care Document ---
:[address] [facility] Information Vessel Care Team Providers Name Role Phone Formerly [facility] Information Exchange Unavailable Un available Problems Problem Status Onset Classification Date Comments [facility] e Date Reported [id number]-- MORBID Active 03/07/20 OBESITY [address] [facility] GERD Active 06/01/[address] K21.9 05358 Active 06/01/[address] Other abnormal and 11/05/19 02/04/2018 [facility] inconclusive 18 [facility] findings on Women's diagnostic imaging of breast R92.8 - OT ABN AND Active 10/28/19 [facility] INCONCLUSIVE FINDI 18 H ermann Encounter for 10/13/19 01/13/2018 [facility] screening mammogram 18 [facility] for malignant Women' s neoplasm of breast Z12.31 - ENCNTR Active 10/01/19 [facility] SCREEN MAMMOGRAM 18 Her [place] Acute cholecystitis Resolved Problem 07/13/2020 Medical (disorder) Group,[facility] S [facility] Anxiety (finding) Active Problem 07/13/2020 H Medical Group,[facility] Chronic Active Problem 07/13/2020 Medica l osteoarthritis Group ,[facility] (disorder) [facility] Gastroesophageal Active Problem 07/13/2020 Medical reflux disease Group ,[facility] (disorder) [facility] Hypertensive Active Problem 07/13/2020 Med ical disorder, systemic G roup,[facility] arterial (disorder) [facility] Morbid obesity Active Problem 07/13/2020 M edical (disorder) Group,[facility] Renal cell Resolved Problem 07/13/2020 Medic al carcinoma Group,[facility] (disorder) [facility] Sleep apnea Active Problem 07/13/2020 Medi thomas (finding) Group,[facility] ILLNESS, Active UNSPECIFIED [facility] Medications Medication Details Route Status Patient Ordering Order Source Instructions Provider Date sucralfate 1 g 1 gm = 1 tab, Active oral tablet PO, QID, Crush 2019 Medic al tablet and mix Group in 30ml of water or cyrtal light before taking. DO NOT TAKE A WHOLE PILL!, # 56 tab, 0 Refill(s), Pharmacy: [id number], 167.64, cm, 04/05/20 9:39:00 CDT, Height, 110.455, kg, 04/05/20 9:3... omeprazole 40 mg 40 mg = 1 cap, Active oral delayed PO, Daily, 0 2019 Medica l release capsule Refill(s) Group Thyroxine Notes: Take 1 Inactive hour before or 2 2019 Memoria l hours after [facility] meal; Enteral feeds may interefere with the absorption of this medication. (Same as:Levothroid, Synthroid) Doxepin Notes: (Same as: No Longer Hydrochloride 25 SINEquan) Active [facility] Memor ial MG Oral Capsule [facility] pantoprazole Notes: Tablet No Longer should not be Active [address] [place] [address] chewed or [facility] crushed. (Same as: Protonix) Labetalol Notes: (Same as: No Longer Normodyne, [address] Trandate) Push City over 2 minutes Give bolus over 2-3 minutes. Labetalol 10 mg, Route: Inactive IVP, Drug form: [address] [place] [address] INJ, Q4H, Dosing [facility] Weight 114.545, kg, Start date: 03/29/20 16:00:00 CDT, Duration: 30 day, Stop date: 04/28/20 12:00:00 CDT Ondansetron 2 Notes: (Same as: Inactive MG/ML Injectable Zofran) 2019 [facility] [Zofran] MEDICATION WASTE City Product Size: 4 mg Product Wasted: ___ mg Losartan Notes: (Same as: No Longer Cozaar) [address] oxybutynin Notes: (Same as: No Longer Ditropan XL) [address] "Do Not Crush" [facility] donepezil Notes: (Same as: No Longer Aricept) Active [address] [place] [address] Cymbalta Notes: (Same as: No Longer Cymbalta) (Do [address] [place] [address] Not Crush) [facility] Ciprofloxacin Notes: May No Longer interfere Active [address] [place] [address] w/enteral [facility] feedings - Take 1 hr before or 2 hrs after antacids, dairy pdt & minerals. On empty stomach. tramadol Notes: Not to No Longer hydrochloride 50 exceed Active [facility] Memoria l MG Oral Tablet 400mg/day. (Same City As: Ultra) Enoxaparin Notes: (Same as: No Longer Lovenox) Active [address] [place] [address] 72 HR Scopolamine 1 patch, Route: Inactive 03/28 0.0139 MG/HR TOP, Drug Form: 2019 [facility] orial Transdermal Patch ERFILM, Dosing [facility] Weight 114.545, kg, Q72H, Start date: 03/28/20 18:00:00 CDT, Duration: 30 day, Stop date: 04/24/20 18:00:00 CDT Dilaudid Notes: Same as No Longer Dilaudid Active [address] [place] [address] Zofran 4 mg, Route: Inactive IVP, Drug form: 2019 [facility] INJ, Q8H, Dosing [facility] Weight 114.545, kg, PRN Nausea, Start date: 03/28/20 17:24:00 CDT, Duration: 30 day, Stop date: 04/27/20 17:23:00 CDT Calcium Chloride 1,000 mL, Rate: No Longer 03/28 0.0014 MEQ/ML / 125 ml/hr, [facility] Pot[facility] Infuse over: 8 [facility] Chloride 0.004 hr, Route: IV, MEQ/ML / Sodium Dosing Weight Chloride 0.103 114.545 kg, MEQ/ML / Sodium Total Volume: Lactate 0.028 1,000, Start MEQ/ML Injectable date: 03/28/20 Solution 17:22:00 CDT, Duration: 30 day, Stop date: 04/27/20 17:21:00 CDT, 2.35, m2, 0 Dilaudid 0.5 mg, Route: Inactive IVP, Q3H, Dosing 2019 Memoria l Weight 114.545, City kg, PRN Pain Score 7-10, Start date: 03/28/20 17:22:00 CDT, Duration: 30 day, Stop date: 04/27/20 17:21:00 CDT Zofran Notes: (Same as: No Longer Zofran) Active 2019 [facility] MEDICATION WASTE [facility] Product Size: 4 mg Product Wasted: ___ mg Hydromorphone 0.3 mg, Route: Inactive IVP, Q3H, Dosing 2019 Memoria l Weight 114.545, City kg, PRN Pain Score 7-10, Start date: 03/28/20 17:22:00 CDT, Duration: 5 day, Stop date: 04/02/20 17:21:00 CDT Lactated Ringers 1,000 mL, Rate: No Longer 03/28 IV 1,000 mL 80 ml/hr, Infuse Active [facility] Mem orial over: 12.5 hr, [facility] Route: IV, Dosing Weight 114.545 kg, Total Volume: 1,000, Priority: STAT, Start date: 03/28/20 17:21:00 CDT, Duration: 30 day, Stop date: 04/27/20 17:20:00 CDT, 2.35, m2, 0 Sugammadex 200 mg, Route: Inactive IV, Drug form: 2019 Jacquelyn SOLN, ONCE, [facility] Dosing Weight 114.545, kg, Priority: STAT, Start date: 03/28/20 12:37:00 CDT, Stop date: 03/28/20 12:37:00 CDT glycopyrrolate Route: IV, Drug Inactive (ANES) form: INJ, ONCE, 2019 Memoria l Stop date: [facility] 03/28/20 12:02:00 CDT neostigmine Route: IV, Drug Inactive (ANES) form: INJ, ONCE, 2019 Memoria l Stop date: [facility] 03/28/20 12:02:00 CDT promethazine Route: IV, Drug Inactive (ANES) form: INJ, ONCE, 2019 Memoria l Stop date: [facility] 03/28/20 11:57:00 CDT ketOROLAC (ANES) IV, ONCE Inactive [address] [place] [address] dexamethasone Route: IV, Drug Inactive M H (ANES) form: INJ, ONCE, 2019 Memoria l Stop date: [facility] 03/28/20 10:36:00 CDT acetaminophen Route: IV, Drug Inactive M H (ANES) form: INJ, ONCE, 2019 Memoria l Stop date: [facility] 03/28/20 10:36:00 CDT Cleocin Phosphate Route: IV, Drug Inactive 03/28 MH (ANES) form: INJ, ONCE, 2019 Memoria l Stop date: [facility] 03/28/20 10:31:00 CDT hydromorphone Route: IV, Drug Inactive M H (ANES) form: INJ, ONCE, 2019 Memoria l Stop date: [facility] 03/28/20 10:26:00 CDT rocuronium (ANES) Route: IV, Drug Inactive 03/28 form: INJ, ONCE, 2019 Memoria l Stop date: [facility] 03/28/20 10:21:00 CDT succinylcholine Route: IV, Drug Inactive (ANES) form: INJ, ONCE, 2019 Memoria l Stop date: [facility] 03/28/20 10:21:00 CDT lidocaine (ANES) Route: IV, Drug Inactive form: INJ, ONCE, 2019 Memoria l Stop date: [facility] 03/28/20 10:15:00 CDT propofol (ANES) Route: IV, Drug Inactive form: INJ, ONCE, 2019 Memoria l Stop date: [facility] 03/28/20 10:15:00 CDT ondansetron Route: IV, Drug Inactive (ANES) form: INJ, ONCE, 2019 Memoria l Stop date: [facility] 03/28/20 10:10:00 CDT Labetalol 10 mg, Route: Inactive IVP, Q5Min, [address] [place] [address] Dosing Weight [facility] 114.545, kg, PRN Elevated BP, Start date: 03/28/20 10:07:00 CDT, Duration: 5 doses or times, Stop date: Limited # of times Morphine 1 mg, Route: Inactive IVP, Q5Min, [address] [place] [address] Dosing Weight [facility] 114.545, kg, PRN Pain Score 4-6, Start date: 03/28/20 10:07:00 CDT, Duration: 5 doses or times, Stop date: Limited # of times Hydromorphone 0.2 mg, Route: Inactive IVP, Q5Min, 2019 [facility] Dosing Weight [facility] 114.545, kg, PRN Pain Score 7-10, Start date: 03/28/20 10:07:00 CDT, Duration: 4 doses or times, Stop date: Limited # of times Flumazenil 0.2 mg, Route: Inactive IVP, PRN, Dosing [facility] Memoria l Weight 114.545, City kg, PRN Benzodiazepine Reversal, Initial dose, Start date: 03/28/20 10:07:00 CDT, Duration: 30 day, Stop date: 04/27/20 10:06:00 CDT Naloxone 0.4 mg, Route: Inactive IVP, Q2MIN, 2019 [facility] Dosing Weight [facility] 114.545, kg, PRN Narcotic Reversal, Start date: 03/28/20 10:07:00 CDT, Duration: 8 doses or times, Stop date: Limited # of times Diphenhydramine 12.5 mg, Route: Inactive IVP, Drug form: 2019 [facility] INJ, Q6H, Dosing [facility] Weight 114.545, kg, PRN Itching, Start date: 03/28/20 10:07:00 CDT, Duration: 30 day, Stop date: 04/27/20 10:06:00 CDT Ondansetron 4 mg, Route: Inactive IVP, ONCE, [address] [place] [address] Dosing Weight [facility] 114.545, kg, PRN Nausea & Vomiting, Start date: 03/28/20 10:07:00 CDT midazolam (ANES) Route: IV, Drug Inactive form: SOLN, [address] [place] [address] ONCE, Stop date: [facility] 03/28/20 10:06:00 CDT fentaNYL (ANES) Route: IV, Drug Inactive form: INJ, ONCE, 2019 Memoria l Stop date: [facility] 03/28/20 10:06:00 CDT Lactated Ringers Route: IV, Total Inactive 03/28 Injection IV Volume: 1,000, 2019 Roshan rial (ANES) 1000 mL Start date: [facility] 03/28/20 9:35:00 CDT, Stop date: 03/28/20 10:35:00 CDT Lactated Ringers 1,000 mL, Rate: No Longer 03/28 Injection IV DIRECTED, Active 2019 Memori al 1,000 mL Route: IV, [facility] Dosing Weight 114.545 kg, Total Volume: 1,000, Start date: 03/28/20 3:34:00 CDT, Duration: 30 day, Stop date: 04/27/20 3:33:00 CDT, 2.35, m2, 0 pantoprazole 40 40 mg = 1 tab, Active H mg oral enteric PO, Daily, 2019 [facility] coated tablet tab, 3 Refill(s) C ity Vitamin C Daily, 0 Active Refill(s) 2019 Medical Group levothyroxine 100 100 microgram = Active mcg (0.1 mg) oral 1 tab, PO, 2019 Med ical tablet Daily, 0 Group Refill(s) Doxepin 25 mg = 1 cap, Active 10/19/ Hydrochloride 25 PO, Bedtime, 2019 Medical MG Oral Capsule 30 cap, 0 Group Refill(s) donepezil 5 mg 5 mg = 1 tab, Active oral tablet PO, Daily, 2019 Medi thomas tab, 0 Refill(s) Group oxybutynin 10 mg 10 mg = 1 tab, Active oral tablet, PO, Daily, 2019 Med ical extended release tab, 0 Refill(s) Group Allergies, Adverse Reactions, Alerts Substance Category Reaction Severity Reaction Status Date Comments S ource type Reported cephalosporins Assertion Drug Active allergy Medical Group codeine Assertion Drug Active allergy Medical Group erythromycin Assertion Drug Active [facility] allergy Medical Group Keflex Assertion Drug Active allergy Medical Group Immunizations No Data Provided for This Section Results Order Name Results Value Reference Date Interpretation Comments Anita rce Range ANEMIA Folate Lvl 9.4 07/02 Result STUDY /2019 Comment: Medical Group Reference Range
Low: <3.4
Borderline: 3.4-5.4
Normal: >5.4

FASTING: YES

FASTING: YES

Lab test performed by:
[facility]
[address] [facility]
[place] [address]
Bubba L Flatwoods ANEMIA Vitamin B12 337 200 - 1100 07/02 Result STUDY Comment: Medical
Please Group Note: Although the reference range for vitamin
B 12 is 200-1100 pg/mL, it has been reported that between
5 and 10% of patients with values between 200 and 400
pg/mL may experience neuropsychiat julissa and hematologic<b r/>abnormalit ies due to occult B12 deficiency; less than 1%
of patients with values above 400 pg/mL will have symptoms.<br/ >
FASTING: YES

FASTING: YES

Lab test performed by:
[facility]
[address] [facility]
[place] [address]
Bubba L [place]woods ANEMIA Iron 85 45 - 160 07/02 Result STUDY Comment: Medical
Lab Group test performed by:
[facility]
[address] [facility]
[place] [address]
Bubba L Herman ANEMIA TIBC 298 250 - 450 07/02 STUDY Medical Group ANEMIA % Satur Fe 29 16 - 45 07/02 STUDY Medical Group ANEMIA Ferritin Lvl 60 16 - 288 07/02 Result STUDY Comment: Medical FASTING:YES<b Group r/>
FASTI NG: YES CHEM PANEL Magnesium 2.2 1.5 - 2.5 07/02 Result Comment: Medical FASTING:YES<b Group r/>
FASTI NG: YES

Lab test performed by:
[facility]
[address] [facility]
[place] [address]
Bubba Sutton CHEM PANEL Glucose Lvl 99 65 - 99 07/02 Result Comment: Medical
Group Fasting reference interval

Lab test performed by:
[facility]
[address]
[place] [address]
Bubba Sutton CHEM PANEL BUN 11 7 - 25 07/02 Medical Group CHEM PANEL Creatinine 0.97 0.50 - 07/02 Result Lvl 0.99 Comment: For Medical patients >49 Group years of age, the reference limit
for Creatinine is approximately 13% higher for people
id entified as -Ameri can. CHEM PANEL eGFR 60 > OR = 60 07/02 NON-AFR. mL/min/1.7 Medical BRAZILIAN 3m2 Group CHEM PANEL eGFR 70 > OR = 60 07/02 BRAZILIAN mL/min/1.7 Medical 2 Group CHEM PANEL B/C Ratio NOT 6 - 22 07/02 APPLICABLE Medical Group CHEM PANEL Sodium Lvl 142 135 - 146 07/02 Medical Group CHEM PANEL Potassium 3.9 3.5 - 5.3 07/02 Lvl /2019 Medical Group CHEM PANEL Chloride Lvl 104 98 - 110 07/02 Medical Group CHEM PANEL CO2 28 20 - 32 07/02 Medical Group CHEM PANEL Calcium Lvl 9.8 8.6 - 10.4 07/02 Medical Group CHEM PANEL Total 6.3 6.1 - 8.1 07/02 Protein Medical Group CHEM PANEL Albumin Lvl 3.9 3.6 - 5.1 07/02 Medical Group CHEM PANEL Globulin 2.4 1.9 - 3.7 07/02 Medical Group CHEM PANEL A/G Ratio 1.6 1.0 - 2.5 07/02 Medical Group CHEM PANEL Bili Total 1.0 0.2 - 1.2 07/02 Medical Group CHEM PANEL Alk Phos 90 37 - 153 07/02 /2019 Medical [facility] CHEM PANEL ASPARTATE 21 10 - 35 11/ TRANSAMINASE /2019 Medical [facility] CHEM PANEL ALANINE 19 6 - 29 07/02 Result AMINOTRANS Comment: Medical RASE FASTING:YES<b Group r/>
FASTI NG: YES HEMATOLOGY WBC X 10x3 5.5 3.8 - 10.8 07/02 Result Comment: Medical
Lab Group test performed by:
[facility]
[address] [place] [address]
[place] [address]
Bubba Sutton HEMATOLOGY RBC X 10x6 5.52 3.80 - 11 5.10 Medical [facility] HEMATOLOGY Hgb 15.1 11.7 - 07/02 15.5 Medical [facility] HEMATOLOGY Hct 47.3 35.0 - 07/02 45.0 Medical [facility] HEMATOLOGY MCV 85.7 80.0 - 07/02 100.0 Medical [facility] HEMATOLOGY MCH 27.4 27.0 - 07/02 33.0 Medical [facility] HEMATOLOGY MCHC 31.9 32.0 - 07/02 36.0 Medical [facility] HEMATOLOGY RDW 14.0 11.0 - 11 15.0 Medical [facility] HEMATOLOGY Platelet 252 140 - 400 07/02 /2019 [facility] HEMATOLOGY MPV 11.6 7.5 - 12.5 07/02 /2019 Medical [facility] HEMATOLOGY Neutrophils 2987 1500 - 07/02 # 7800 /2020 Medical [facility] HEMATOLOGY Lymphocytes 1980 850 - 3900 07/02 # /2020 Medical Group HEMATOLOGY Monocytes # 396 200 - 950 / /2020 Medical [facility] HEMATOLOGY Eosinophils 77 15 - 500 07/02 # /2020 Medical [facility] HEMATOLOGY Basophils # 61 0 - 200 07/02 /2019 Medical [facility] HEMATOLOGY Segs 54.3 07/02 /2019 [facility] HEMATOLOGY Lymphocytes 36.0 07/02 /2019 Medical [facility] HEMATOLOGY Monocytes 7.2 07/02 /2019 Medical [facility] HEMATOLOGY Eosinophils 1.4 07/02 /2019 Medical [facility] HEMATOLOGY Basophils 1.1 07/02 Result Comment: Medical FASTING:YES<b Group r/>
FASTI NG: YES IMMUNOLOGY Prealbumin 16 17 - 34 07/02 Result Comment: Medical FASTING:YES<b Group r/>
FASTI NG: YES

Lab test performed by:
[facility]
[address]
[place] [address]
Dr. Bubba Sutton LIPIDS Chol 204 <200 mg/dL 07/02 Result Comment: Medical
Lab Group test performed by:
[facility]
[address] [facility]
[place] [address]
Bubba Sutton LIPIDS HDL 71 > OR = 50 07/02 mg/dL /2019 Medical Group LIPIDS Trig 118 <150 mg/dL 07/02 Medical Group LIPIDS LDL 110 07/02 Result (Calculated) Comment: Medical Reference Group range: <100

Desirabl e range <100 mg/dL for primary prevention;
<70 mg/dL for patients with CHD or diabetic patients
with > or = 2 CHD risk factors.

LDL-C is now calculated using the Cristina s
calculat ion, which is a validated novel method providing
better accuracy than the Friedewald equation in the
estimati on of LDL-C.
Chavez GARCIA et al. LEN. 2013;310(19): 7433-7603
(http:// education.SLID .com/faq/FAQ1 64) LIPIDS CHD Risk 2.9 <5.0 07/02 (CALC) Medical Group LIPIDS Non HDL Chol 133 <130 mg/dL 07/02 Result Comment: For Medical patients with Group diabetes plus 1 major ASCVD risk
factor, treating to a non-HDL-C goal of <100 mg/dL
(LDL-C of <70 mg/dL) is considered a therapeutic
option.< br/>FASTING:Y ES

F ASTING: YES PARATHYROID PTH Intact 56 14 - 64 07/02 Result PROFILE Comment: Medical
Interpre Group tive Guide Intact PTH Calcium
- ---- -------
N ormal Parathyroid Normal Normal<br/ >Hypoparathyr oidism Low or Low Normal Low
Hyper parathyroidis m
Primary Normal or High High
Secondary High Normal or Low
Tertiary High High
Non- Parathyroid<b r/> Hypercalcemia Low or Low Normal High

FASTING: YES
<br/& gt;FASTING: YES

Lab test performed by:
[facility]
[address] [facility]
[place] [address]
Dr. Bubba Sutton SPECIAL Hgb A1C 5.2 <5.7 % 07/02 Result CHEMISTRY Comment: For Medical the purpose Group of screening for the presence of
diabet es:

<5.7% Consistent with the absence of diabetes
5.7-6.4% Consistent with increased risk for diabetes
(prediabetes)
> or =6.5% Consistent with diabetes

This assay result is consistent with a decreased risk
of diabetes.<br/ >
Currentl y, no consensus exists regarding use of
hemogl obin A1c for diagnosis of diabetes in children.<br/ >
Accordin g to [place] [employer] (ADA)
kisha delines, hemoglobin A1c <7.0% represents optimal
c ontrol in non- diabetic patients. Different<br/ >metrics may apply to specific patient populations.
Standard s of Medical Care in Diabetes(ADA) .

FASTING: YES
<b r/>FASTING: YES

Lab test performed by:
[facility]
[address] [facility]
[place] [address]
Bubba Sutton CHEM PANEL Glucose Lvl 87 70 - 99 03/[address] [facility] CHEM PANEL BUN 7 7 - 22 03/[address] [facility] CHEM PANEL Creatinine 0.79 0.50 - 08 MH Lvl 1.[address] [facility] CHEM PANEL Sodium Lvl 142 135 - 145 03/[address] [facility] CHEM PANEL Potassium 4.0 3.5 - 5.1 08/ MH Lvl /[address] [facility] CHEM PANEL Chloride Lvl 106 95 - 109 03/[address] [facility] CHEM PANEL CO2 29 24 - 32 03/[address] [facility] CHEM PANEL Calcium Lvl 9.2 8.5 - 10.5 03/[address] [facility] CHEM PANEL AGAP 11.0 10.0 - 03/30 MH 20.[address] [facility] CHEM PANEL eGFR 77 03/30 Result Comment: The [facility] eGFR is City calculated using the CKD-EPI formula. In most young, healthy individuals the eGFR will be >90 mL/min/1.73m2 . The eGFR declines with age. An eGFR of 60-89 may be normal in some populations, particularly the elderly, for whom the CKD-EPI formula has not been extensively validated. Use of the eGFR is not recommended in the following populations:< br/>
Mary viduals with unstable creatinine concentration s, including patients and those with serious co-morbid conditions.<b r/>
Patie nts with extremes in muscle mass or diet.

The data above are obtained from the National Kidney Disease Education Program (NKDEP) which additionally recommends that when the eGFR is used in patients with extremes of body mass index for purposes of drug dosing, the eGFR should be multiplied by the estimated BMI. HEMATOLOGY WBC 8.1 3.7 - 10.4 03/[address] [facility] HEMATOLOGY RBC 4.73 4.20 - 08 MH [address] [facility] HEMATOLOGY Hgb 13.4 12.0 - 03/30 MH 16.[address] [facility] HEMATOLOGY Hct 40.8 36.0 - 08 MH 48.0 /[address] [facility] HEMATOLOGY MCV 86.2 80.0 - 08/07 MH 98.0 /[address] [facility] HEMATOLOGY MCH 28.4 27.0 - 08/07 MH 31.0 /[address] [facility] HEMATOLOGY MCHC 32.9 32.0 - 08/07 MH 36.0 /[address] [facility] HEMATOLOGY RDW 14.1 11.5 - 08/07 MH 14.5 /[address] [facility] HEMATOLOGY Platelet 212 133 - 450 08/07 MH /[address] [facility] HEMATOLOGY MPV 9.0 7.4 - 10.4 08/07 MH /[address] [facility] HEMATOLOGY PTT 33.1 22.9 - 08/07 MH 35.8 /[address] [facility] HEMATOLOGY PT 13.9 12.0 - 08/07 MH 14.7 /[address] [facility] HEMATOLOGY INR 1.07 0.85 - 08/07 MH 1.17 /[address] [facility] HEMATOLOGY Segs 67.5 45.0 - 08/07 MH 75.0 /[address] [facility] HEMATOLOGY Lymphocytes 22.4 20.0 - 08/07 MH 40.0 /[address] [facility] HEMATOLOGY Monocytes 7.2 2.0 - 12.0 08/07 MH /[address] [facility] HEMATOLOGY Eosinophils 2.3 0.0 - 4.0 08/07 MH /[address] [facility] HEMATOLOGY Basophils 0.6 0.0 - 1.0 08/07 /[address] [facility] HEMATOLOGY Neutrophils 5.5 1.5 - 8.1 08/07 MH # /[address] [facility] HEMATOLOGY Lymphocytes 1.8 1.0 - 5.5 08/07 # /[address] [facility] HEMATOLOGY Monocytes # 0.6 0.0 - 0.8 08/07 /[address] [facility] HEMATOLOGY Eosinophils 0.2 0.0 - 0.5 08/07 MH # /[address] [facility] HEMATOLOGY Basophils # 0.1 0.0 - 0.2 08/07 MH /[address] [facility] CHEM PANEL Glucose Lvl 108 70 - 99 08/06 MH /[address] [facility] CHEM PANEL BUN 11 7 - 22 08/06 /[address] [facility] CHEM PANEL Creatinine 0.88 0.50 - 08/06 MH Lvl 1.40 /[address] [facility] CHEM PANEL Sodium Lvl 141 135 - 145 08/06 /[address] [facility] CHEM PANEL Potassium 4.2 3.5 - 5.1 08/06 MH Lvl /[address] [facility] CHEM PANEL Chloride Lvl 105 95 - 109 08/06 /[address] [facility] CHEM PANEL CO2 28 24 - [address] [facility] CHEM PANEL Calcium Lvl 9.5 8.5 - 10.5 03/[address] [facility] CHEM PANEL AGAP 12.2 10.0 - 08/ MH 20.[address] [facility] CHEM PANEL eGFR 68 08 Result Comment: [facility] eGFR is City calculated using the CKD-EPI formula. In most young, healthy individuals the eGFR will be >90 mL/min/1.73m2 . The eGFR declines with age. An eGFR of 60-89 may be normal in some populations, particularly the elderly, for whom the CKD-EPI formula has not been extensively validated. Use of the eGFR is not recommended in the following populations:< br/>
Mary viduals with unstable creatinine concentration s, including patients and those with serious co-morbid conditions.<b r/>
Patie nts with extremes in muscle mass or diet.

The data above are obtained from the National Kidney Disease Education Program (NKDEP) which additionally recommends that when the eGFR is used in patients with extremes of body mass index for purposes of drug dosing, the eGFR should be multiplied by the estimated BMI. HEMATOLOGY WBC 12.7 3.7 - 10.4 03/[address] [facility] HEMATOLOGY RBC 4.93 4.20 - 08 MH 5.40 /[address] [facility] HEMATOLOGY Hgb 13.8 12.0 - 08 MH 16.[address] [facility] HEMATOLOGY Hct 42.2 36.0 - 08 MH 48.[address] [facility] HEMATOLOGY MCV 85.6 80.0 - 08 MH 98.[address] [facility] HEMATOLOGY MCH 28.0 27.0 - 08/ MH 31.[address] [facility] HEMATOLOGY MCHC 32.7 32.0 - 08/ MH 36.[address] [facility] HEMATOLOGY RDW 14.2 11.5 - 08 MH 14.[address] [facility] HEMATOLOGY Platelet 254 133 - 450 03/[address] [facility] HEMATOLOGY MPV 8.7 7.4 - 10.4 03/[address] [facility] HEMATOLOGY PTT 30.4 22.9 - 08/ MH 35.[address] [facility] HEMATOLOGY PT 13.5 12.0 - 08 MH 14.7 /[address] [facility] HEMATOLOGY INR 1.03 0.85 - 08/06 MH 1.17 /[address] [facility] HEMATOLOGY Segs 80.7 45.0 - 08/06 MH 75.0 /[address] [facility] HEMATOLOGY Lymphocytes 12.3 20.0 - 08/06 MH 40.0 /[address] [facility] HEMATOLOGY Monocytes 6.5 2.0 - 12.0 08/06 MH /[address] [facility] HEMATOLOGY Basophils 0.5 0.0 - 1.0 08/06 MH /[address] [facility] HEMATOLOGY Neutrophils 10.3 1.5 - 8.1 08/06 MH # /[address] [facility] HEMATOLOGY Lymphocytes 1.6 1.0 - 5.5 08/06 # /[address] [facility] HEMATOLOGY Monocytes # 0.8 0.0 - 0.8 08/06 /[address] [facility] HEMATOLOGY Basophils # 0.1 0.0 - 0.2 08/06 /[address] [facility] BLOOD BANK ABO/Rh B POS 08/ RESULTS /[address] [facility] BLOOD BANK Antibody Negative 03/26 RESULTS Scrn (03/26/20 12:25 PM) /[address] [facility] CHEM PANEL Glucose Lvl 102 70 - 99 08/[address] [facility] CHEM PANEL BUN 17 7 - 22 08/03 /[address] [facility] CHEM PANEL Creatinine 1.02 0.50 - 08/03 Lvl 1.40 /[address] [facility] CHEM PANEL Sodium Lvl 139 135 - 145 08/03 /[address] [facility] CHEM PANEL Potassium 4.2 3.5 - 5.1 08/03 Lvl /[address] [facility] CHEM PANEL Chloride Lvl 108 95 - 109 08/[address] [facility] CHEM PANEL CO2 27 24 - 32 08/[address] [facility] CHEM PANEL Calcium Lvl 9.8 8.5 - 10.5 08/03 /[address] [facility] CHEM PANEL Albumin Lvl 3.8 3.5 - 5.0 08/03 /[address] [facility] CHEM PANEL ALT 31 0 - 65 08/03 /[address] [facility] CHEM PANEL AST 20 0 - 37 08/03 /[address] [facility] CHEM PANEL AGAP 8.2 10.0 - 08/03 MH 20.0 /[address] [facility] CHEM PANEL B/C Ratio 17 6 - 25 08/03 /[address] [facility] CHEM PANEL eGFR 57 08/03 Result Comment: [facility] eGFR is City calculated using the CKD-EPI formula. In most young, healthy individuals the eGFR will be >90 mL/min/1.73m2 . The eGFR declines with age. An eGFR of 60-89 may be normal in some populations, particularly the elderly, for whom the CKD-EPI formula has not been extensively validated. Use of the eGFR is not recommended in the following populations:< br/>
Mary viduals with unstable creatinine concentration s, including patients and those with serious co-morbid conditions.<b r/>
Patie nts with extremes in muscle mass or diet.

The data above are obtained from the National Kidney Disease Education Program (NKDEP) which additionally recommends that when the eGFR is used in patients with extremes of body mass index for purposes of drug dosing, the eGFR should be multiplied by the estimated BMI. CHEM PANEL Total 7.8 6.4 - 8.4 03/[address] [facility] CHEM PANEL Alk Phos 76 39 - 136 03/[address] [facility] CHEM PANEL Bili Total 0.8 0.2 - 1.3 03/[address] [facility] CHEM PANEL Globulin 4.0 2.7 - 4.2 03/[address] [facility] CHEM PANEL A/G Ratio 1.0 0.7 - 1.6 03/[address] [facility] CHEM PANEL VITAMIN B1 179 78 - 185 03/26 Result MH (THIAMINE) Comment: [facility] WHOLE BLOOD Vitamin [facility] supplementati on within 24 hours prior to
blood draw may affect the accuracy of results.

This test was developed and its analytical&lt ;br/>performa nce characteristi cs have been determined
by [employer]. It has not been cleared or
approv ed by the FDA. This assay has been validated<br/ >pursuant to the CLIA regulations and is used for
clini thomas purposes.<br/ >Test Performed at:
[facility], [id number] [place] [address]
[place] [id number] Holly Bro MD, PhD HEMATOLOGY WBC 6.9 3.7 - 10.4 08/03 MH /[address] [facility] HEMATOLOGY RBC 5.50 4.20 - 08/ MH 5.40 /[address] [facility] HEMATOLOGY Hgb 15.4 12.0 - 08/ MH 16.0 /[address] [facility] HEMATOLOGY Hct 47.5 36.0 - 08/ MH 48.0 /[address] [facility] HEMATOLOGY MCV 86.4 80.0 - 08/ MH 98.0 /[address] [facility] HEMATOLOGY MCH 27.9 27.0 - 08/ MH 31.0 /[address] [facility] HEMATOLOGY MCHC 32.3 32.0 - 08/ MH 36.0 /[address] [facility] HEMATOLOGY RDW 14.4 11.5 - 08/ MH 14.5 /[address] [facility] HEMATOLOGY Platelet 252 133 - 450 08/ /[address] [facility] HEMATOLOGY MPV 8.4 7.4 - 10.4 08/ /[address] [facility] HEMATOLOGY PT 13.5 12.0 - 08 MH 14.7 /[address] [facility] HEMATOLOGY INR 1.03 0.85 - 08/ MH 1.17 /[address] [facility] HEMATOLOGY PTT 27.2 22.9 - 08/ MH 35.8 /[address] [facility] HEMATOLOGY Segs 57.8 45.0 - 08/ MH 75.0 /[address] [facility] HEMATOLOGY Lymphocytes 31.7 20.0 - 08/ MH 40.0 /[address] [facility] HEMATOLOGY Monocytes 7.6 2.0 - 12.0 08/ /[address] [facility] HEMATOLOGY Eosinophils 1.9 0.0 - 4.0 08/ /[address] [facility] HEMATOLOGY Basophils 1.0 0.0 - 1.0 08/ /[address] [facility] HEMATOLOGY Neutrophils 4.0 1.5 - 8.1 08/ MH # /[address] [facility] HEMATOLOGY Lymphocytes 2.2 1.0 - 5.5 08/ # /[address] [facility] HEMATOLOGY Monocytes # 0.5 0.0 - 0.8 08/ /[address] [facility] HEMATOLOGY Eosinophils 0.1 0.0 - 0.5 08/ # /[address] [facility] HEMATOLOGY Basophils # 0.1 0.0 - 0.2 08/ [facility] TETRACYCLIN Culture: >100,000 03/26 E:SUSC:PT:I Urine CFU/mL /2019 [facility] SOLATE:ORDQ Enterococc City N:GILES us Species TETRACYCLIN Enterococcus Enterococc 03/26 E:SUSC:PT:I Species us Species /2019 [facility] SOLATE:ORDQ [facility] N:GILES URINE AND UA Color Yellow Yellow 03/26 STOOL *NA* /2019 [facility] (03/26/20 12:25 PM) [facility] URINE AND UA Turbidity Slight Clear 03/26 STOOL *ABN* /2019 [facility] (03/26/20 12:25 PM) [facility] URINE AND UA Spec Grav 1.012 <=1.030 03/[address] [facility] URINE AND UA pH 5.0 5.0 - 8.0 03/26 STOOL /[address] [facility] URINE AND UA Protein Negative Negative 03/26 STOOL mg/dL mg/dL [facility] URINE AND UA Glucose Negative Negative 03/26 STOOL mg/dL mg/dL [facility] URINE AND UA Bili Negative Negative 03/26 STOOL *NA* /2019 [facility] (03/26/20 12:25 PM) [facility] URINE AND UA Blood Small Negative 03/26 STOOL *ABN* /2019 [facility] (03/26/20 12:25 PM) [facility] URINE AND UA Nitrite Negative Negative 03/26 STOOL (03/26/20 12:25 PM) [facility] URINE AND UA Leuk Est Small Negative 03/26 STOOL *ABN* /2019 [facility] (03/26/20 12:25 PM) [facility] URINE AND UA Sq Epi Few /LPF Few /LPF 03/26 STOOL /[address] [facility] URINE AND UA WBC 14 0 - 5 03/26 STOOL /[address] [facility] URINE AND UA RBC 4 0 - 2 03/26 STOOL /[address] [facility] URINE AND UA Bacteria Occasional None Seen 03/26 STOOL /HPF /HPF /[address] [facility] URINE AND UA Mucus Few /LPF None Seen 03/26 STOOL /LPF /[address] [facility] URINE AND UA Ketones Negative 03/[address] [place] [address] URINE AND UA <=1.0 0.1 - 1.0 03/26 STOOL Urobilinogen mg/dL [facility] IMMUNOLOGY Coronavirus Not Detected Not 03/26 (COVID-19) *NA* Detected [facility] VALE (03/26/20 11:35 AM) [facility] Pathology Reports No Data Provided for This Section Diagnostic Reports Report Value Date Source Chest 2 views DX EXAM: Chest 2 views DX 03/26/[address] [facility] HISTORY: Coughing - coughing COMPARISON: None The heart size is normal. T he lungs are clear. There is no pleural effusion or pneumothorax. No acute skeletal abnormality. IMPRESSION: No acute abnormality. Breast Complete Uni 10/28/2017 [facility] US COMPLETE ULTRASOUND OF RIGHT BREAST AND AXILLA: 10/28/2017 CLINICAL: R92.8 Other Abnorm al And Inconclusive Findings On Diagnostic Imaging Of Breast/R92.8 Other Abnormal And Inconclusive Findings On Diagnostic Imaging Of Breast /R92.8 Other Abnormal And Inconclusive Findings On Diagnostic Imaging Of Breast. Diagnostic work-up for recent screening mammogra m. COMPARISON:Comparison is [facility] e to exams dated: 10/07/2017 mammogram, 11/08/2014 mammogram, and 08/08/2013 mammogram - [facility]. TECHNIQUE: Current study was also evaluated with a Computer Aided Detection (CAD) system. Real-time ultrasound of the right breast four quadrants, retroareolar, and axilla regions was performed. FINDINGS: No abnormalities were seen sonographically in th e right axilla. There is an area of fibrocys tic tissue with small cysts at right 11:00 5 cm from nipple, correlates with mammographic finding. IMPRESSION: PROBABLY BENIGN The right 11:00 mammographic asymmetry likely represents fibrocystic breast tissue. Follow-up right mammogram with possible ultrasound in 6 months is recommended to demonstrate stability.(04/29/2018) This exam was interpreted at [id number] for [facility]. Prabhu Alejandro M.D. mt/:11/05/2017 11:12:01 Attending Technologist(s): Trish Oliver, [facility] It Data Architect(s): Cal SinghS, [facility]; Marie Sandoval, [facility] letter sent: BI-RADS 3 Ultrasound BI-RADS: 3 Probably benign Breast Mammo Diag UNI 10/28/2017 [facility] jacqui w steven incl CAD MA UNILATERAL RIGHT DIGITAL DIAGNOSTIC MAMMOGRAM 3D /2D WITH CAD: 10/28/2017 CLINICAL: R92.8 Other Abnorm al And Inconclusive Findings On Diagnostic Imaging Of Breast/R92.8 Other Abnormal And Inconclusive Findings On Diagnostic Imaging Of Breast /R92.8 Other Abnormal And Inconclusive Findings On Diagnostic Imaging Of Breast. Current study was evaluated with a Progress Developer d Detection (CAD) system. COMPARISON:Comparison is mad e to exams dated: 10/07/2017 mammogram, 11/08/2014 mammogram, and 08/08/2013 mammogram - [facility]. TECHNIQUE: Digital Breast To mosynthesis was performed and utilized for Interpretation. Current study was also evaluated with a Computer Aided Detection (CAD) system. FINDINGS: The tissue of right breast i s heterogeneously dense, which could obscure detection of small masses. The right 11:00 asymmetry is less promient with additional views and is in region of prior benign biopsy. There are benign appearing c alcifications in the right breast. There also is a biopsy clip in the right breast. No significant masses, calci fications, or other findings are seen in the breast. There has been no significant interval change. IMPRESSION: INCOMPLETE: NEEDS ADDITIONAL IMAGING EVALUATION PLEASE SEE SAME DAY ULTRASO UND REPORT. This exam was interpreted at [id number] for [facility]. Prabhu Alejandro M.D. mt/:11/05/2017 11:12:01 Attending Technologist(s): Trish Oliver, [facility] It Data Architect(s): Cal SinghS, [facility]; Marie Sandoval, [facility] letter sent: BI-RADS 3 Mammogram BI-RADS: 0 Indeterminate Breast Mammo Scrn ANJEL 10/07/2017 [facility] incl CAD MA BILATERAL DIGITAL SCREENING MAMMOGRAM WITH CAD: 10/07/2017 CLINICAL: Routine/Screen. Current study was evaluated with a [employer] Developer d Detection (CAD) system. COMPARISON:Comparison is mad e to exam dated: 08/08/2013 mammogram - [facility]. TECHNIQUE: Mammographic view s were obtained using digital acquisition. Current study was also evaluated with a Computer Aided Detection (CAD) system. FINDINGS: The tissue of both breasts i s heterogeneously dense, which could obscure detection of small masses. There are benign appearing c alcifications in both breasts. There also is a biopsy clip in the right breast. Additionally, there are post operative findings in the left breast. Stable nipple inversion is noted. There is a focal asymmetry in the right breast a t 11 o'clock anterior depth. No other significant masses, calcifications, or other findings are seen in either breast. IMPRESSION: INCOMPLETE: NEEDS ADDITIONAL IMAGING EVALUATION RECOMMENDATION:The focal asy mmetry in the right breast is indeterminate. Spot compression and lateral views as well as an ultrasound are recommended. This exam was interpreted at [id number] for [facility]. Paige Hammer M.D. acb/:10/12/2017 08:57:40 It Data Architect(s): RT Sonia(R)(M), [facility] letter sent: BI-RADS 0 Mammogram BI-RADS: 0 Indeterminate Consultation Notes No Data Provided for This Section Discharge Summaries No Data Provided for This Section History and Physicals No Data Provided for This Section Vital Signs Vital Sign Value Date Comments Source Height 167.64 cm 07/02/2020 [facility] Weight 100 07/02/2020 [facility] BMI Calculated 35.58 07/02/2020 [facility] Height 167.64 cm 04/05/2020 [facility] Weight 110.455 04/05/2020 [facility] BMI Calculated 39.3 04/05/2020 [facility] Temperature Oral (F) 98.5 F 03/30/2020 [facility] Heart Rate 60 [facility] 16 [facility] Systolic (mm Hg) 162 03/30/2020 [facility] Diastolic (mm Hg) 89 03/30/2020 [facility] Temperature Oral (F) 98.3 F 03/30/2020 [facility] Heart Rate 65 03/30/2020 [facility] Respitory Rate 18 03/30/2020 [facility] Systolic (mm Hg) 158 03/30/2020 [facility] Diastolic (mm Hg) 85 03/30/2020 [facility] Temperature Oral (F) 98.4 F 03/30/2020 [facility] Respitory Rate 16 03/30/2020 [facility] Heart Rate 74 03/30/2020 [facility] Systolic (mm Hg) 146 03/30/2020 [facility] Diastolic (mm Hg) 86 03/30/2020 [facility] Height 167.64 cm 03/26/2020 [facility] Weight 114.545 03/26/2020 [facility] BMI Calculated 40.76 03/26/2020 [facility] Height 165.1 cm 02/16/2020 [facility] Weight 116.364 02/16/2020 [facility] BMI Calculated 42.69 02/16/2020 [facility] Systolic (mm Hg) 140 10/19/2019 [facility] Diastolic (mm Hg) 88 10/19/2019 [facility] Heart Rate 68 10/19/2019 [facility] Height 167.64 cm 10/19/2019 [facility] Weight 114.909 10/19/2019 [facility] BMI Calculated 40.89 10/19/2019 [facility] Encounters Location Location Encounter Encounter Reason Attending ADM NM Stat us Source Details Type Number For Provider Date Date Visit [facility] Outpt Diag [id number] Jonathan 10/07 10/08 [facility] Outpt Diag [id number] Jonathan 10/28 10/29 [facility] Outpatient Services [facility] /2017 [facility] [id number] Musa 04/[address] [facility] [place] [facility] [id number] [employer] 10/07 [facility]2019 [facility] Outpatient [id number] Musa 10/07 10/08 [facility] [place] /2019 [facility] Outpatient [id number] Henry 10/[address] [facility] [place] [facility] Outpatient [id number] Henry 10/19 10/20 [facility]pre[facility] [place] /2019 Medi thomas ve [facility] Care [facility] Outpatient [id number] ANEUDY 11/[address] [facility] VISIT [place] Outpatient [id number] ALENA 11/[address] [facility] 2 VISIT [facility] Ambulatory [id number] Musa 11/02 11/02 Comprehensi Pre-Reg [place] /2020 /2020 Med ical ve Heart Group Care [facility] Outpatient [id number] [facility] 12/[address] [facility] VISIT /2020 [place] Outpatient [id number] ULTRASOUND 12/[address] [facility] 1 VIS[facility] [id number] 12/20 Comprehensi [place] /2020 /2020 [facility] thomas ve Heart Group [facility] Outpatient [id number] Musa 12/20 12/21 Comprehensi [place] /2020 /2020 [facility] ve Heart Group [facility] Outpatient [id number] ULTRASOUND 01/[address] [facility] 2 VISIT /2019 [facility] [id number] Musa 01/04 01/04 Comprehensi Pre-Reg [place] /2020 /2020 Med ical ve Heart Group [facility] Outpatient [id number] 02/[address] [facility] [place] /2020 [facility] Outpatient [id number] Musa 02/15 02/16 [facility] [place] /2020 /2020 [facility] Outpatient [id number] Musa 03/[address] [facility] [place] /2020 [facility] Outpatient [id number] Musa 03/14 03/15 [facility] [place] /2020 /2020 [facility] Surgery [facility] Inpatient [id number] Musa 03/28 03/30 [place] [facility] /2020 /2020 [facility] Outpatient [id number] Musa 04/[address] [facility] [place] /2020 [facility] Outpatient [id number] Musa 04/05 04/06 [facility] [place] /2020 /2020 [facility] Outpatient [id number] Fabio 06/[address] [facility] Brown /2020 [facility] Outpatient [id number] Musa 06/05 06/06 [facility] [place] /2020 /2020 [facility] Outpatient [id number] Musa 07/[address] [facility] [place] /2020 [facility] Outpatient [id number] Musa 07/02 07/03 [facility] [place] /2020 /2020 [facility] Between [id number] 07/10 07/11 [facility] Visit /2019 Medica l Bariatric Group Surgery Procedures Procedure Code Date Perfomer Comments Source Biopsy of breast [id number] Medic al Group,[facility] Cholecystectomy [id number] Medica l Group,[facility] Women[facility] Hysterectomy [id number] Medical Group,[facility] Women[facility] Nephrectomy [id number] Medical Group,[facility] Repair of umbilical [id number] Me dical hernia Group,[facility] Total knee [id number] Medical replacement Group,[facility] Assessment and Plan Assessment and Plan Date Source Extracted from:Title: Clinical Document 03/30/2020 [facility] Author: Musa Hartman MD Date: 03/30/20 Progress Note - Daily [facility] Completed: Mar, 10:43 by Musa Hartman MD RM: [phone] - [id number], [id number] TANI OLIVEIRA ENOCH 69y (: 1950) F Attending: Musa Hartman MD Service: Surgery Reason for Admission: 65703-- MORBID OBESITY Working DRG: Code status: Full Resuscitation Current diet: Isolation: No Isolation/Standard Precautions Allergies: cephalosporins, Keflex, erythromycin, codeine SUBJECTIVE/ OBJECTIVE No events. Tolerating diet. HTN continues but improved. Pain controlled. 24hr Labs 03/30 0440 Glucose Lvl 87 BUN 7 Creatinine Lvl 0.79 Sodium Lvl 142 Potassium Lvl 4.0 Chloride Lvl 106 CO2 29 AGAP 11.0 Calcium Lvl 9.2 eGFR 77 WBC 8.1 RBC 4.73 Hgb 13.4 Hct 40.8 MCV 86.2 MCH 28.4 MCHC 32.9 RDW 14.1 Platelet 212 MPV 9.0 Segs 67.5 Monocytes 7.2 Lymphocytes 22.4 Eosinophils 2.3 Basophils 0.6 Neutrophils # 5.5 Lymphocytes # 1.8 Monocytes # 0.6 Eosinophils # 0.2 Basophils # 0.1 PT 13.9 INR 1.07 PTT 33.1 [place] still necessary (Yes/No): Line still neces yudy (Yes/No): Vitals Tmp(F) Pulse BP RR SpO2 FIO2 03/30 07:25 98.3 65 158/85 18 94 --- 03/30 05:06 98.4 74 146/86 16 97 --- 08 22:40 98.1 74 160/84 16 95 --- 03/29 19:38 98.3 63 161/79 18 94 --- 03/29 17:35 98.4 60 156/82 16 99 --- 24 Hr Tmax: 98.5F (36.94c) at 03/29 16:5 3 Vital Signs are the last 5 in the past 48 hours. Date Wt(kg) Wt(lb) Ht(cm) Ht(in) Method 03/26 (initial) 114.55 252.00 167.64 66.00 Measured I&O Record In Out Bal 03/30 24hr Tot 282 400 -118 03/29 24hr Tot 289 3075 -177 Medications (15) Active Scheduled Meds (9): 03/29/20 DULoxetine (Cymbalta) 60 mg PO Daily 03/29/20 ciprofloxacin 500 mg PO [id number] 03/29/20 donepezil 5 mg PO Daily 03/29/20 doxepin (doxepin 25 mg oral capsule) 25 mg PO Bedti me 03/28/20 enoxaparin 30 mg SUB-Q [id number] 03/30/20 levothyroxine 100 microgram PO [id number] 03/29/20 losartan 50 mg PO Daily 03/29/20 oxybutynin 10 mg PO Daily 03/29/20 pantoprazole 40 mg PO Before Dinner Unscheduled Meds: None PRN Meds (4): 03/28/20 hydromorphone (Dilaudid) 0.5 mg IVP Q3H 03/29/20 labetalol 10 mg IVP Q4H 03/28/20 ondansetron (Zofran) 4 mg IVP Q6H 03/29/20 tramadol (tramadol 50 mg oral tablet) 50 mg PO Q4H One Time Meds (1): 03/29/20 (not done) ondansetron (Zofran) 4 mg IV ONCE Continuous Infusions (1): 03/28/20 Lactated Ringers Injection IV 1 ,000 mL (Lactated Ringers IV 1,000 mL) 1,000 mL 80 ml/hr ASSESSMENT and EXAM NAD RRR Soft, ND, appr TTp, wounds c/d/i PLAN and TREATMENT No events. Tolerating diet. HTN continue s but improved . Pain controlled. Cont protocol. Ready for Discharge (Yes/No)? TEACHING ATTESTATION Plan of Care No Data Provided for This Section Social History Social History Date Source Social History TypeResponse 07/02/2020 [facility] rou Smoking Status Never smoker; Exposure to Tobacco Smoke None; Cigarette Smoking Last 365 Days No; Reg Smoking Cessation Counseling No entered on: 07/02/20 Social History TypeResponse 03/26/2020 [facility] Smoking Status Never smoker; Exposure to Tobacco Smoke None; Cigarette Smoking Last 365 Days No; Reg Smoking Cessation Counseling No entered on: 03/26/20 Social History TypeResponse 08/05/2016 [facility] Nadira Women's Smoking Status Never smoker; Exposure to Tobacco Smoke None; Cigarette Smoking Last 365 Days No; Reg Smoking Cessation Counseling No entered on: 08/05/16 Family History No Data Provided for This Section Advance Directives No Data Provided for This Section Functional Status No Data Provided for This Section
--- OUTSIDE RECORDS SUMMARY | 2020-08-03 14:33 | XMS REPORT | Summary of Care ---
:1950 Author Organization [facility] Address [id number] [place] [phone]- Encounter HQ Encntr_alias(FIN) [id number] Date(s): 06/05/20 - 06/05/20 [facility] [address] [place] [address] [phone] Discharge Disposition: Home or Self Care Attending Physician: Fabio Link NP Referring Physician: Musa Hartman MD Vital Signs No data available for this section Problem List Condition Effective Dates Status Health Status Informant Acute cholecystitis(Confirmed) Resolved Anxiety(Confirmed) Active Anxiety(Confirmed) Active Chronic osteoarthritis(Confirmed) Active GERD (gastroesophageal reflux Active disease)(Confirmed) HTN (hypertension)(Confirmed) Active Morbid obesity due to excess Active calories(Confirmed) Morbid obesity(Confirmed) Active Carcinoma, renal cell(Confirmed) Resolved Apnea, sleep(Confirmed) Active Allergies, Adverse Reactions, Alerts Substance Reaction Severity Status cephalosporins Active codeine Active erythromycin Active Keflex Active Medications No data available for this section Results No data available for this section Immunizations No data available for this section Procedures Procedure Date Related Diagnosis Body Site Status Biopsy of breast Completed Cholecystectomy Completed Hysterectomy Completed Nephrectomy Completed Repair of umbilical hernia C ompleted Total knee replacement Compl eted Social History Social History Type Response Smoking Status Never smoker; Exposure to To bacco Smoke None; Cigarette Smoking Last 365 Days No; Reg Smoking Cessation Counseling No entered on: 04/05/20 Assessment and Plan No data available for this section
--- OUTSIDE RECORDS SUMMARY | 2020-08-03 14:33 | XMS REPORT | Summary of Care ---
:1950 Author Organization [facility] Address [address] [place] [address]- Encounter HQ Encntr_alias(FIN) [id number] Date(s): 07/10/20 - 07/11/20 [facility] [id number] [place] [phone] Vital Signs No data available for this [...] Reaction Severity Status cephalosporins Active codeine Active Keflex Active erythromycin Active Medications No data available for this [...] Smoking Cessation Counseling No entered on: 07/02/20 Assessment and Plan No data available for this section
--- OUTSIDE RECORDS SUMMARY | 2020-08-03 14:33 | XMS REPORT | Summary of Care ---
:1950 Author Organization [facility] Address [address] [place] [phone]- Encounter HQ Leora_juan c(FIN) [id number] Date(s): 07/02/20 - 07/02/20 [facility] [address] [place] [phone] Discharge Disposition: Home or Self Care Attending Physician: Musa Hartman MD Referring Physician: Musa Hartman MD Vital Signs Most recent to oldest [Reference Range]: 1 Height 167.64 cm (07/02/20 8:48 AM) Weight 100 kg (07/02/20 8:48 AM) Body Mass Index 35.58 m2 (07/02/20 8:48 AM) Problem List Condition Effective Dates Status Health Status Informant Acute cholecystitis(Confirmed) Resolved Anxiety(Confirmed) Active Anxiety(Confirmed) Active Chronic osteoarthritis(Confirmed) Active GERD (gastroesophageal reflux Active disease)(Confirmed) HTN (hypertension)(Confirmed) Active Morbid obesity due to excess Active calories(Confirmed) Morbid obesity(Confirmed) Active Carcinoma, renal cell(Confirmed) Resolved Apnea, sleep(Confirmed) Active Allergies, Adverse Reactions, Alerts Substance Reaction Severity Status cephalosporins Active codeine Active Keflex Active erythromycin Active Medications No Known Medications Results Most recent to oldest [Reference Range]: 1 Neutrophils # [6736-9549 Cells/uL] 2987 Cells/uL *N* (07/02/20 11:21 AM) Lymphocytes # [850-3900 Cells/uL] 1980 Cells/uL *N* (07/02/20 11:21 AM) Monocytes # [200-950 Cells/uL] 396 Cells/uL *N* (07/02/20 11:21 AM) Eosinophils # [15-500 Cells/uL] 77 Cells/uL *N* (07/02/20 11:21 AM) Basophils # [0-200 Cells/uL] 61 Cells/uL *N* (07/02/20 11: AM) Non HDL Chol [<130 mg/dL] 133 mg/dL 1 *HI* (07/02/20 11: AM) eGFR NON-AFR. [place] [> OR = 60 mL/min/1.73m2] 60 mL /min/1.73m2 *N* (07/02/20 11 AM) eGFR [> OR = 60 mL/min/1.73m2] 70 mL/ min/1.73m2 *N* (07/02/20 11: AM) % Satur Fe [16-45 % (calc)] 29 % (calc) *N* (07/02/20 11: AM) A/G Ratio [1.0-2.5 (CALC)] 1.6 (CALC) *N* (07/02/20 AM) Albumin Lvl [3.6-5.1 g/dL] 3.9 g/dL *N* (07/02/20 11:21 AM) Alk Phos [37-153 unit/L] 90 unit/L *N* (07/02/20 11: AM) ALT [6-29 unit/L] 19 unit/L 2 *N* (07/02/20 11: AM) AST [10-35 unit/L] 21 unit/L *N* (07/02/20 11: AM) B/C Ratio [6-22] NOT APPLICABLE (07/02/20 AM) Basophils 1.1 % 3 *N* (07/02/20 11:21 AM) BUN [7-25 mg/dL] 11 mg/dL *N* (07/02/20 11:21 AM) Calcium Lvl [8.6-10.4 mg/dL] 9.8 mg/dL *N* (07/02/20 11: AM) CHD Risk [<5.0 (CALC)] 2.9 (CALC) *N* (07/02/20 11: AM) Chol [<200 mg/dL] 204 mg/dL 4 *HI* (11/9/20 11:21 AM) Chloride Lvl [98-110 mMol/L] 104 mMol/L *N* (07/02/20 11: AM) CO2 [20-32 mMol/L] 28 mMol/L *N* (07/02/20 AM) Creatinine Lvl [0.50-0.99 mg/dL] 0.97 mg/dL 5 *N* (07/02/20 AM) Eosinophils 1.4 % *N* (07/02/20 AM) Ferritin Lvl [16-288 ng/mL] 60 ng/mL 6 *N* (07/02/20 AM) Folate Lvl 9.4 ng/mL 7 *N* (07/02/20 AM) Globulin [1.9-3.7 g/dL] 2.4 g/dL *N* (07/02/20 AM) Glucose Lvl [65-99 mg/dL] 99 mg/dL 8 *N* (07/02/20 AM) Hct [35.0-45.0 %] 47.3 % *HI* (07/02/20 AM) HDL [> OR = 50 mg/dL] 71 mg/dL *N* (07/02/20 AM) Hgb [11.7-15.5 g/dL] 15.1 g/dL *N* (07/02/20 AM) Hgb A1C [<5.7 %] 5.2 % 9 *N* (07/02/20 AM) Iron [45-160 mcg/dl] 85 mcg/dl 10 *N* (07/02/20 AM) Potassium Lvl [3.5-5.3 mMol/L] 3.9 mMol/L *N* (07/02/20 11 AM) LDL (Calculated) 110 mg/dL 11 *HI* (07/02/20: AM) Lymphocytes 36.0 % *N* (07/02/20 AM) MCH [27.0-33.0 pg] 27.4 pg *N* (07/02/20 AM) MCHC [32.0-36.0 g/dL] 31.9 g/dL *LOW* (07/02/20 AM) MCV [80.0-100.0 fL] 85.7 fL *N* (07/02/20 AM) Magnesium Lvl [1.5-2.5 mg/dL] 2.2 mg/dL 12 *N* (07/02/20 AM) Monocytes 7.2 % *N* (07/02/20 AM) MPV [7.5-12.5 fL] 11.6 fL *N* (07/02/20 AM) Sodium Lvl [135-146 mMol/L] 142 mMol/L *N* (07/02/20 AM) Platelet [140-400 K/ul] 252 K/ul *N* (07/02/20 AM) Segs 54.3 % *N* (07/02/20) Prealbumin [17-34 mg/dL] 16 mg/dL 13 *LOW* (07/02/20) Total Protein [6.1-8.1 g/dL] 6.3 g/dL *N* (07/02/20 AM) PTH Intact [14-64 pg/mL] 56 pg/mL 14 *N* (07/02/20 AM) RBC [3.80-5.10 M/CMM] 5.52 M/CMM *HI* (07/02/20 AM) RDW [11.0-15.0 %] 14.0 % *N* (07/02/20 AM) Bili Total [0.2-1.2 mg/dL] 1.0 mg/dL *N* (07/02/20 AM) TIBC [250-450 mcg/dl] 298 mcg/dl *N* (07/02/20 AM) Trig [<150 mg/dL] 118 mg/dL *N* (07/02/20 AM) Vitamin B12 Lvl [200-1100 pg/mL] 337 pg/mL 15 *N* (07/02/20 AM) WBC [3.8-10.8 K/ul] 5.5 K/ul 16 *N* (07/02/20 11:21 AM) 1Result Comment: For patients with diabetes plus 1 major ASCVD risk factor, treating to a non-HDL-C goal of <100 mg/dL (LDL-C of <70 mg/dL) is considered a therapeutic option. FASTING:YES FASTING: [id number] Comment: FASTING:YES FASTING: [id number] Comment: FASTING:YES FASTING: [id number] Comment: Lab test performed by: [facility] [address] [place] [phone] Bubba Sutton5Result Comment: For patients >49 years of age, the reference limit for Creatinine is approximately 13% higher for people identified as -[place].6Result Comment: FASTING:YES FASTING: [id number] Comment: Reference Range Low: <3.4 Borderline: 3.4-5.4 Normal: >5.4 FASTING:YES FASTING: YES Lab test performed by: [facility] [address] [place] [phone] Bubba Sutton8Result Comment: Fasting reference interval Lab test performed by: [facility] [address] [place] [phone] Bubba Sutton9Result Comment: For the purpose of screening for the presence of diabetes: <5.7% Consistent with the absence of diabetes 5.7-6.4% Consistent with increased risk for diabetes (prediabetes) > or =6.5% Consistent with diabetes This assay result is consistent with a decreased risk of diabetes. Currently, no consensus exists regarding use of hemoglobin A1c for diagnosis of diabetes in children. According to [place] Diabetes Association (ADA) guidelines, hemoglobin A1c <7.0% represents optimal control in non- diabetic patients. Different metrics may apply to specific patient populations. Standards of Medical Care in Diabetes(ADA). FASTING:YES FASTING: YES Lab test performed by: [facility] [address] [place] [phone] Bubba Sutton10Result Comment: Lab test performed by: [facility] [address] [place] [phone] Bubba Sutton11Result Comment: Reference range: <100 Desirable range <100 mg/dL for primary prevention; <70 mg/dL for patients with CHD or diabetic patients with > or = 2 CHD risk factors. LDL-C is now calculated using the Yasmany calculation, which is a validated novel method providing better accuracy than the Friedewald equation in the estimation of LDL-C. Chavez SS et al. LEN. 2013;310(19): 5606-5993 (http://education.PhotoSpotLand/faq/JBZ790)12Result Comment: FASTING:YES FASTING: YES Lab test performed by: [facility] [address] [place] [phone] Bubba Sutton13Result Comment: FASTING:YES FASTING: YES [facility]: [facility] [address] [place] [phone] Dr. Bubba Sutton14Result Comment: Interpretive Guide Intact PTH Calcium ------- Normal Parathyroid Normal Normal Hypoparathyroidism Low or Low Normal Low Hyperparathyroidism Primary Normal or High High Secondary High Normal or Low Tertiary High High Non-Parathyroid Hypercalcemia Low or Low Normal High FASTING:YES FASTING: YES Lab test performed by: [facility] [address] [place] [phone] Dr. Bubba Sutton15Result Comment: Please Note: Although the reference range for vitamin B12 is 200-1100 pg/mL, it has been reported that between 5 and 10% of patients with values between 200 and 400 pg/mL may experience neuropsychiatric and hematologic abnormalities due to occult B12 deficiency; less than 1% of patients with values above 400 pg/mL will have symptoms. FASTING:YES FASTING: YES Lab test performed by: [facility] [address] [place] [phone] Bubba Sutton16Result Comment: Lab test performed by: [facility] [address] [place] [phone] Bubba Sutton Immunizations No data available for this section [...]
--- OUTSIDE RECORDS SUMMARY | 2020-08-03 14:35 | XMS REPORT | Continuity of Care Document ---
:1950 Author Organization [facility] t Address [address] [place] [address] Care Team Providers Name Role Phone Valerie Iqbal Primary Care Physician Baljit Hartman Attending Clinician Nikolay Attending Clinician VISIT, [facility] Attending Clinician Unavailable VISIT, [facility] Attending Clinician Unavailable Rayshawn Maldonado Attending Clinician ARIES Attending Clinician Unavailable PAULINO Attending Clinician Unavailable SHIRLEY BAUTISTA Attending Clinician Unavailable Valerie Iqbal Jr Attending Clinician Baljit Hartman Admitting Clinician Problems Condition Condition Condition Status Onset Resolution Last Treating Co mments Source Name Details Category Date Date Treatment Clinician Date 11086-- Diagnosis Active 2020-03-28 Me moria MORBID 7-15 16:56:00 l OBESITY 02575-- 00:00: John n MORBID 00 OBESITY Active 03/07/2020 [facility] GERD Diagnosis Active 2018-082019-06-02 Mem oria 0-09 11:19:00 l GERD 00:00: D[place] 00 Active 06/01/2019 [facility] K21.9 Diagnosis Active 2018-082019-10-08 Mem oria [id number] 0-09 18:18:00 l K21.9 00:00: [place] [id number] 00 Active 06/01/2019 [facility] R92.8 - Diagnosis Active 2018-04-23 Me moridandy OTH ABN 3-06 08:59:00 l AND R92.8 - 00:01: D[place] INCONCLUSI OTH ABN 00 VE FINDI AND INCONCLUSI VE FINDI Active 10/27/2017 Jacquelyn Jon Z12.31 - Diagnosis Active 2017-10-07 M fabian ENCNTR 2-08 07:47:00 l SCREEN Z12.31 - 00:01: John fry MAMMOGRAM ENCNTR 00 FOR MA SCREEN MAMMOGRAM FOR MA Active 10/01/2017 [facility] [place] History of History of Problem Resolve Univers Gallbladde Gallbladde d [place] [facility] [place] of History of Problem Resolve [facility] hemorrhoid hemorrhoid d it y of s s [place] [facility] History of History of Problem Resolve Univers hypertensi hypertensi d it y of on on [place] [facility] Primary Primary Problem Active Univers osteoarthr osteoarthr it y of itis of itis of [place] both knees both knees Ph ysici ans Status Status Problem Active Univers post total post total it y of left knee left knee [place] repl[place] replacemen Ph ysici t using t using ans cement cement Aftercare Aftercare Problem Active Uni vers following following [place] left [place] left knee [place] [facility] Physici replacemen replacemen an s t surgery t surgery Bilateral Bilateral Problem Active Uni vers knee pain knee pain ity of [place] [facility] History of History of Problem Resolve Univers low back low back d ity of pain pain [place] [facility] Right foot Right foot Problem Active U nivers pain pain [place] of [place] [facility] Osteoarthr Osteoarthr Problem Active U nivers itis of [place] of [place] of [place] knees [place] knees [place] [facility] Acute Problem Resolve 2020-07-13 Roshan arthur cholecysti d 22:27:25 l tis Acute [place] (disorder) cholecysti tis (disorder) Resolved Problem 07/13/2020 [facility] 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 Chronic Problem Active 2020-07-13 Roshan arthur osteoarthr 22:27:25 l itis Chronic [place] (disorder) osteoarthr itis (disorder) Active Problem 07/13/2020 [facility] Gastroesop Problem Active 2020-07-13 M emoria hageal 22:27:25 l reflux [place] disease Gastroesop (disorder) hageal reflux disease (disorder) Active Problem 07/13/2020 [facility] Hypertensi Problem Active 2020-07-13 M emoria ve 22:27:25 l disorder, [place] systemic Hypertensi arterial ve (disorder) disorder, systemic arterial (disorder) Active Problem 07/13/2020 [facility] Morbid Problem Active 2020-07-13 Memor ia obesity 22:27:25 l (disorder) Morbid Herm viri obesity (disorder) Active Problem 07/13/2020 Medical [facility] Sleep Problem Active 2020-07-13 Memor ia apnea 22:27:25 l (finding) Sleep John n apnea (finding) Active Problem 07/13/2020 [facility] I[facility]NESS, Diagnosis Active 2020-03-28 M emoria UNSPECIFIE 16:56:00 l D ILLNESS, John n UNSPECIFIE D Active [facility] Other Problem 2018-02-04 2018-02-04 M emoria abnormal -14 15:14:02 15:14:02 l and Other 04:21: [place] inconclusi abnormal 57 ve and findings inconclusi on ve diagnostic findings imaging of on breast diagnostic imaging of breast 11/04/2017 02/04/2018 [facility] Nadira Ericksons Encounter Problem 2018-01-13 2018-01-13 Memoria for 2-20 12:45:32 12:45:32 l screening 05:20: [place] mammogram Encounter 14 for for malignant screening neoplasm mammogram of breast for malignant neoplasm of breast 10/13/2017 01/13/2018 [facility] Nadira Women's Allergies, Adverse Reactions, Alerts Allergy Allergy Status Severity Reaction(s) Onset Inactive Treating Comm ents Source Name Type Date Date Clinician Adhesive Drug Active Rash [facility] Codeine Drug Active Anaphylaxis [facility] codeine Adverse Active Info Not [facility] Reaction Available [facility] cephalos cephalos Active Memori a porins porins l [place] codeine codeine Active Memoria l [place] erythrom erythrom Active Memori a ycin ycin l [place] Keflex Keflex Active Memoria l [place] Family History Family Member Diagnosis Comments Start Date Stop Date Source Mother Family history of [facility] ity of [place] hypertension Physicians Father Family history of [facility] ity [facility] tuberculosis Physicians Father Family history of [facility] ity [facility] hypertension Physicians Father Family history of [facility] [place]y of [place] arthritis Physicians Father Family history of [facility] ity of [place] malignant neoplasm of Phy sicians prostate Brother Family history of [facility] ity [facility] leukemia Physicians Social History Social Habit Start Date Stop Date Quantity Comments Source Sex Assigned At [facility] Tobacco use and 2017-12-24 2017-12-[address] [facility] - exposure 00:00:00 00:00:00 [facility] Alcohol intake 2017-12-24 2017-12-24 [facility] - 00:00:00 00:00:00 non-drinker of Medical nter alcohol (finding) Smoking Status Start Date Stop Date Source Social History [facility] Medications Ordered Filled Start Stop Current Ordering Indication Dosage Frequency Signature Comments Components Source Medication Medication Date Date Medication? Clinician (SIG) Name Name sucralfate 2019- Yes 1 gm = 1 Mem oria 1 g oral 8-13 tab, PO, l tablet 17:44: QID, Crush Donna nn 00 tablet and mix in 30ml of water or cyrtal light before taking. DO NOT TAKE A WHOLE PILL!, # 56 tab, 0 Refill(s), [id number], 167.64, cm, 04/05/20 9:39:00 CDT, Height, 110.455, kg, 04/05/20 9:3... omeprazole 2019-0 Yes 40 mg = 1 Me moria 40 mg oral 04-05 cap, PO, l delayed 14:44: Daily, 0 John n release 00 Refill(s) capsule Thyroxine No Notes: Memori a 03-30 Take 1 l 11:30: hour [place] 00 before or 2 hours after meal; Enteral feeds may interefere with the absorption of this medication . (Same as:Levothr oid, Synthroid) Doxepin No Notes: Memoria Hydrochlori 03-30 (Same as: l de 25 MG 02:00: SINEquan) Herm viri Oral 00 Capsule pantoprazol No Notes: Roshan arthur e 03-29 Tablet l 21:30: should not [place] 00 be chewed or crushed. (Same as: Protonix) Labetalol No Notes: Memori a 03-29 (Same as: l 21:08: Normodyne, Dontrell 00 Trandate) Push over 2 minutes Give bolus over 2-3 minutes. Labetalol No 10 mg, Memori a 03-29 Route: l 21:00: IVP, Drug form: INJ, Q4H, Dosing Weight 114.545, kg, Start date: 03/29/20 16:00:00 CDT, Duration: 30 day, Stop date: 04/28/20 12:00:00 CDT Ondansetron No Notes: Roshan arthur 2 MG/ML 03-29 (Same as: l Injectable 15:14: Zofran) Herm viri Solution 00 [Zofran] MEDICATION WASTE Product Size: 4 mg Product Wasted: ___ mg Losartan 2019- No Notes: Memoria 03-29 (Same as: l 14:29: Cozaar) [place] oxybutynin No Notes: Memor ia 03-29 (Same as: l 14:29: Ditropan [place] 00 XL) "Do Not Crush" donepezil No Notes: Memori a 03-29 (Same as: l 14:28: Aricept) D[place] 00 Cymbalta 2019- No Notes: Memoria 03-29 (Same as: l 14:28: Cymbalta) [place] (Do Not Crush) Ciprofloxac No Notes: May Memoria in 03-29 interfere l 14:00: w/enteral Dontrell feedings - Take 1 hr before or 2 hrs after antacids, dairy pdt & minerals. On empty stomach. tramadol No Notes: Not Mem oria hydrochlori 03-29 to exceed l de 50 MG 13:35: 400mg/day. Her taylor Oral Tablet 00 (Same As: Ultram) Enoxaparin No Notes: Memor ia 03-29 (Same as: l 04:30: Lovenox) Dontrell 00 72 HR No 1 patch, Memoria Scopolamine 03-28 Route: l 0.0139 23:00: TOP, Drug John n MG/HR 00 Form: Transdermal ERFILM, Patch Dosing Weight 114.545, kg, Q72H, Start date: 03/28/20 18:00:00 CDT, Duration: 30 day, Stop date: 04/24/20 18:00:00 CDT Dilaudid No Notes: Memoria 03-28 Same as l 22:24: Dilaudid Zofran No 4 mg, Memoria 03-28 Route: l 22:24: IVP, Drug form: INJ, Q8H, Dosing Weight 114.545, kg, PRN Nausea, Start date: 03/28/20 17:24:00 CDT, Duration: 30 day, Stop date: 04/27/20 17:23:00 CDT Calcium No 1,000 mL, Memor ia Chloride 03-28 Rate: 125 l 0.0014 22:22: ml/hr, [place] MEQ/ML / 00 Infuse Potassium over: 8 Chloride hr, Route: 0.004 IV, Dosing MEQ/ML / Weight Sodium 114.545 Chloride kg, Total 0.103 Volume: MEQ/ML / 1,000, Sodium Start Lactate date: 0.028 03/28/20 MEQ/ML 17:22:00 Injectable CDT, Solution Duration: 30 day, Stop date: 04/27/20 17:21:00 CDT, 2.35, m2, 0 Dilaudid 2020-0 No 0.5 mg, Memori a 03-28 Route: l 22:22: IVP, Q3H, Dosing Weight 114.545, kg, PRN Pain Score 7-10, Start date: 03/28/20 17:22:00 CDT, Duration: 30 day, Stop date: 04/27/20 17:21:00 CDT Zofran 2020-0 No Notes: Memoria 03-28 (Same as: l 22:22: Zofran) MEDICATION WASTE Product Size: 4 mg Product Wasted: ___ mg Hydromorpho 2020-0 No 0.3 mg, Mem oria ne 03-28 Route: l 22:22: IVP, Q3H, Dosing Weight 114.545, kg, PRN Pain Score 7-10, Start date: 03/28/20 17:22:00 CDT, Duration: 5 day, Stop date: 04/02/20 17:21:00 CDT Lactated 2019-0 No 1,000 mL, Roshan arthur Ringers IV 03-28 Rate: 80 l 1,000 mL 22:21: ml/hr, Infuse over: 12.5 hr, Route: IV, Dosing Weight 114.545 kg, Total Volume: 1,000, Priority: STAT, Start date: 03/28/20 17:21:00 CDT, Duration: 30 day, Stop date: 04/27/20 17:20:00 CDT, 2.35, m2, 0 Sugammadex 2019-0 No 200 mg, Roshan arthur 03-28 Route: IV, l 17:37: Drug form: SOLN, ONCE, Dosing Weight 114.545, kg, Priority: STAT, Start date: 03/28/20 12:37:00 CDT, Stop date: 03/28/20 12:37:00 CDT glycopyrrol 2019-0 No Route: IV, Memoria ate (ANES) 03-28 Drug form: l 17:02: INJ, ONCE, Stop date: 03/28/20 12:02:00 CDT neostigmine 2019-0 No Route: IV, Memoria (ANES) 03-28 Drug form: l 17:02: INJ, ONCE, Stop date: 03/28/20 12:02:00 CDT promethazin 2019- No Route: IV, Memoria e (ANES) 03-28 Drug form: l 16:57: INJ, ONCE, Stop date: 03/28/20 11:57:00 CDT ketOROLAC 2019-0 No IV, ONCE Roshan arthur (ANES) 03-28 l 16:52: dexamethaso No Route: IV, Memoria ne (ANES) 03-28 Drug form: l 15:36: INJ, ONCE, Stop date: 03/28/20 10:36:00 CDT acetaminoph No Route: IV, Memoria en (ANES) 03-28 Drug form: l 15:36: INJ, ONCE, Stop date: 03/28/20 10:36:00 CDT Cleocin No Route: IV, Roshan arthur Phosphate 03-28 Drug form: l (ANES) 15:31: INJ, ONCE, Donna Stop date: 03/28/20 10:31:00 CDT hydromorpho No Route: IV, Memoria ne (ANES) 03-28 Drug form: l 15:26: INJ, ONCE, Stop date: 03/28/20 10:26:00 CDT rocuronium 2019- No Route: IV, M emoria (ANES) 03-28 Drug form: l 15:21: INJ, ONCE, Stop date: 03/28/20 10:21:00 CDT succinylcho 2019- No Route: IV, Memoria line (ANES) 03-28 Drug form: l 15:21: INJ, ONCE, Stop date: 03/28/20 10:21:00 CDT lidocaine 2019-0 No Route: IV, Me moria (ANES) 03-28 Drug form: l 15:15: INJ, ONCE, Stop date: 03/28/20 10:15:00 CDT propofol 2019-0 No Route: IV, Mem oria (ANES) 03-28 Drug form: l 15:15: INJ, ONCE, Stop date: 03/28/20 10:15:00 CDT ondansetron 2020-0 No Route: IV, Memoria (ANES) 03-28 Drug form: l 15:10: INJ, ONCE, Stop date: 03/28/20 10:10:00 CDT Labetalol 2020-0 No 10 mg, Memori a 03-28 Route: l 15:07: IVP, [place] 00 Q5Min, Dosing Weight 114.545, kg, PRN Elevated BP, Start date: 03/28/20 10:07:00 CDT, Duration: 5 doses or times, Stop date: Limited # of times Morphine 2020-0 No 1 mg, Memoria 03-28 Route: l 15:07: IVP, [place] 00 Q5Min, Dosing Weight 114.545, kg, PRN Pain Score 4-6, Start date: 03/28/20 10:07:00 CDT, Duration: 5 doses or times, Stop date: Limited # of times Hydromorpho 2020-0 No 0.2 mg, Mem oria ne 03-28 Route: l 15:07: IVP, [place] 00 Q5Min, Dosing Weight 114.545, kg, PRN Pain Score 7-10, Start date: 03/28/20 10:07:00 CDT, Duration: 4 doses or times, Stop date: Limited # of times Flumazenil 2020-0 No 0.2 mg, Roshan arthur 03-28 Route: l 15:07: IVP, PRN, Dosing Weight 114.545, kg, PRN Benzodiaze pine Reversal, Initial dose, Start date: 03/28/20 10:07:00 CDT, Duration: 30 day, Stop date: 04/27/20 10:06:00 CDT Naloxone 2020-0 No 0.4 mg, Memori a 03-28 Route: l 15:07: IVP, [place] 00 Q2MIN, Dosing Weight 114.545, kg, PRN Narcotic Reversal, Start date: 03/28/20 10:07:00 CDT, Duration: 8 doses or times, Stop date: Limited # of times Diphenhydra 2020-0 No 12.5 mg, Me moria mine 03-28 Route: l 15:07: IVP, Drug form: INJ, Q6H, Dosing Weight 114.545, kg, PRN Itching, Start date: 03/28/20 10:07:00 CDT, Duration: 30 day, Stop date: 04/27/20 10:06:00 CDT Ondansetron 2020-0 No 4 mg, Memor ia 03-28 Route: l 15:07: IVP, ONCE, Dosing Weight 114.545, kg, PRN Nausea & Vomiting, Start date: 03/28/20 10:07:00 CDT midazolam 2020-0 No Route: IV, Me moria (ANES) 03-28 Drug form: l 15:06: SOLN, ONCE, Stop date: 03/28/20 10:06:00 CDT fentaNYL 2020-0 No Route: IV, Mem oria (ANES) 03-28 Drug form: l 15:06: INJ, ONCE, Stop date: 03/28/20 10:06:00 CDT Lactated 2020-0 No Route: IV, Mem oria Ringers 03-28 Total l Injection 14:35: Volume: Donna nn IV (ANES) 00 1,000, 1000 mL Start date: 03/28/20 9:35:00 CDT, Stop date: 03/28/20 10:35:00 CDT Lactated 2020-0 No 1,000 mL, Roshan arthur Ringers 03-28 Rate: l Injection 08:34: DIRECTED, Her taylor IV 1,000 mL 00 Route: IV, Dosing Weight 114.545 kg, Total Volume: 1,000, Start date: 03/28/20 3:34:00 CDT, Duration: 30 day, Stop date: 04/27/20 3:33:00 CDT, 2.35, m2, 0 pantoprazol 2020-0 Yes 40 mg = 1 M emoria e 40 mg 8-03 tab, PO, l oral 16:50: Daily, # [place] enteric 00 30 tab, 3 coated Refill(s) tablet Vitamin C 2020-0 Yes Daily, 0 Roshan arthur 6-25 Refill(s) l 15:32: [place] 00 levothyroxi 2020-0 Yes 100 Memori a ne 100 mcg 6-25 microgram l (0.1 mg) 15:32: = 1 tab, Donna nn oral tablet 00 PO, Daily, 0 Refill(s) Doxepin 2020-0 Yes 25 mg = 1 Memor ia Hydrochlori 2-26 cap, PO, l de 25 MG 21:12: Bedtime, # taylor Oral 00 30 cap, 0 Capsule Refill(s) donepezil 5 2020-0 Yes 5 mg = 1 Me moria mg oral 2-26 tab, PO, l tablet 21:12: Daily, # Dontrell 00 30 tab, 0 Refill(s) oxybutynin 2020-0 Yes 10 mg = 1 Me moria 10 mg oral 2-26 tab, PO, l tablet, 21:12: Daily, # John n extended 00 30 tab, 0 release Refill(s) Estradiol Estradiol 2018-08 Yes Cristy as [facility] [place] [facility] Cipro Cipro 2018-08 2019- No Cristy 1 tablet [facility] - 00:00: 00:00 Memoria 00 :00 [facility] losartan Yes 50mg QD Take [address] (COZAAR) 50 4-02 by mouth Luke s - MG tablet 18:44: daily. Medica l 25 Center DULoxetine Yes 60mg QD Take [address] (CYMBALTA) 4-02 by mouth [facility] - 60 MG 18:44: daily. Medical capsule 25 Center pantoprazol Yes 40mg QD Take [address] e 4-02 by mouth [facility] - (PROTONIX) 18:44: daily. Medic al 40 MG 25 Center tablet hydroCHLORO Yes 25mg QD Take [address] thiazide 4-02 by mouth [facility] - (HYDRODIURI 18:44: daily. Medi thomas L) 25 MG 25 Center tablet Cymbalta Cymbalta Yes Cristy [address] [place] [facility]ics Losartan Losartan Yes Cristy [address] Potassium Potassium Randell L [facility] ent Clinics Cymbalta 60 Cymbalta 60 Yes U nivers MG Oral MG Oral ity of Capsule Capsule [place] Delayed Delayed Physici Release Release ans Particles Particles hydroCHLORO hydroCHLORO Yes U nivers thiazide thiazide ity of 12.5 MG 12.5 MG [place] Oral Tablet Oral Tablet P hysici ans Cozaar TABS Cozaar TABS Yes U nivers ity of [place] Physici ans NexIUM CPDR NexIUM CPDR Yes U nivers [place] [facility] Vital Signs Vital Name Observation Time Observation Value Comments Source Height 2020-07-02 167.64 cm Jacquelyn Werneran n 14:48:00 Weight 2020-07-02 Memorial John n 14:48:00 BMI Calculated 2020-07-02 [facility]i 14:48:00 Height 2020-04-05 167.64 cm Jacquelyn Werneran n 14:39:00 Weight 2020-04-05 Memorial John n 14:39:00 BMI Calculated 2020-04-05 [facility] 14:39:00 Temperature Oral 2020-03-30 98.5 F [facility] rmann (F) 15:59:00 Heart Rate 2020-03-30 Memorial John n 15:59:00 Respitory Rate 2020-03-30 [facility]i 15:59:00 Systolic (mm Hg) 2020-03-30 [facility] He rmann 15:59:00 Diastolic (mm Hg) 2020-03-30 [facility] H ermann 15:59:00 Temperature Oral 2020-03-30 98.3 F [facility] He rmann (F) 12:25:00 Heart Rate 2020-03-30 Memorial John n 12:25:00 Respitory Rate 2020-03-30 [facility]i 12:25:00 Systolic (mm Hg) 2020-03-30 [facility] rmann 12:25:00 Diastolic (mm Hg) 2020-03-30 [facility] H ermann 12:25:00 Temperature Oral 2020-03-30 98.4 F [facility] He rmann (F) 10:06:00 Respitory Rate 2020-03-30 [facility]i 10:06:00 Heart Rate 2020-03-30 Memorial John n 10:06:00 Systolic (mm Hg) 2020-03-30 [facility] rmann 10:06:00 Diastolic (mm Hg) 2020-03-30 [facility] H ermann 10:06:00 Height 2020-03-26 167.64 cm Jacquelyn Werneran n 16:13:00 Weight 2020-03-26 [facility] John n 16:13:00 BMI Calculated 2020-03-26 [facility]i 16:13:00 Height 2020-02-16 165.1 cm Memorial John n 15:28:00 Weight 2020-02-16 [facility] John n 15:28:00 BMI Calculated 2020-02-16 [facility]i 15:28:00 Systolic (mm Hg) 2019-10-19 [facility] He rmann 20:48:00 Diastolic (mm Hg) 2019-10-19 [facility] H ermann 20:48:00 Heart Rate 2019-10-19 Memorial John n 20:48:00 Height 2019-10-19 167.64 cm Memorial John n 20:48:00 Weight 2019-10-19 Memorial John n 20:48:00 BMI Calculated 2019-10-19 [facility]i 20:48:00 BP Systolic 2017-08-07 130 mm[Hg] Location: [facility] 08:34:00 Position: [place] [facility] Sitting BP Diastolic 2017-08-07 78 mm[Hg] Location: [facility] 08:34:00 Position: [place] Physician s Sitting Height 2017-08-07 66 [in_us] [facility] 08:34:00 [place] [facility] s Weight 2017-08-07 246 [lb_av] [facility] 08:34:00 [place] [facility] s Body Mass Index 2017-08-07 39.71 kg/m2 [facility] Calculated 08:34:00 [place] [facility] Heart Rate 2017-08-07 55 /min [facility] 08:34:00 [place] [facility] s Procedures Procedure Date / Time Performing Clinician Source Performed [U] XRAY FOOT MIN 3 [facility] 2019-05-09 00:00:00 [facility] RIGHT [id number] Physicians [U] XR KNEE 3 [facility] 2017-08-07 00:00:00 [facility] BILATERAL Physicians History of Gallbladder [facility] Surgery Physicians History of Nephrectomy [facility] [place] [facility] History of Hysterectomy [facility] Physicians History of Total Knee [facility] Replacement Left Physicians History of Total Knee [facility] Replacement Right Physicians [facility] of [facility] Hysterectomy [facility] Nephrectomy [facility] Repair of umbilical hernia Memor ial Dontrell Total knee replacement [facility] Plan of Care Planned Activity Planned Date Details Comments Source Future Scheduled 2020-04-24 INFLUENZA VACCINE (#1) [facility] 00:[facility]00 [code = INFLUENZA Medical Ce nter VACCINE (#1)] Future Scheduled 2017-11-[address] [facility] - Test 00:00:00 WELLNESS (YEAR 2 or Medical Center FIRST YEAR if no IPPE) [code = MEDICARE ANNUAL WELLNESS (YEAR 2 or FIRST YEAR if no IPPE)] Future Scheduled 2016-12-07 PNEUMOCOCCAL 65+ [facility] - Test 00:00:00 (1 of 1 - Medical Center [id number] PCV13) [code = PNEUMOCOCCAL 65+ YRS (1 of 1 - [id number] PCV13)] Future Scheduled [address] [facility] - Test 00:00:00 [facility] breast (procedure) [code = 257628671] Future Scheduled [address] - Test 00:00:00 [facility] colon (procedure) [code = 688890739] Encounters Start End Encounter Admission Attending Care Care Encounter Source Date/Time Date/Time Type Type Clinicians Facility Department ID 2020-03-28 Inpatient [facility] [id number] Mem oria 07:00:00 [facility] 2019-[facility]-02 Outpatient [facility] [id number] Me moria 11:17:52 l [facility] 2020-07-10 2020-07-11 Outpatient [facility] [id number] 10:00:01 10:00:01 02 2020-07-02 2020-07-02 Outpatient [facility], [facility] [id number] 09:00:00 23:59:59 Musa Smiley 2020-06-12 2020-06-12 Outpatient [facility] [id number] [facility] 2020-06-05 2020-06-05 Outpatient Brown, [facility] [id number] 09:00:00 23:59:59 Fabio Wyman 2020-04-05 2020-04-05 Outpatient Primomo, [facility] [id number] 09:30:00 23:59:59 Musa Smiley 2020-03-28 2020-03-30 Outpatient [facility], [facility] [id number] 07:00:00 11:50:00 Musa Smiley 2020-03-28 2020-03-30 Outpatient Primomo, [facility] [id number] 07:00:00 11:50:00 Musa Pedroza Baljit 2020-03-14 2020-03-14 Outpatient Primomo, [facility] [id number] 09:30:00 23:59:59 Musa Smiley 2020-02-16 2020-02-16 Outpatient Primomo, [facility] [id number] 11:00:00 23:59:59 Musa Donis [place] 2020-01-05 2020-01-05 Outpatient VISIT, [facility] [id number] 08:30:00 08:30:00 [id number] 05 [facility] 2019-12-21 2019-12-21 Outpatient VISIT, [facility] [id number] 13:00:00 23:59:59 [id number] 07 [facility] 2019-12-21 2019-12-21 Outpatient [place], [facility] [id number] 08:00:00 23:59:59 Denita Rayshawn Hernández 2019-11-03 2019-11-03 Outpatient VISIT, [facility] [id number] 13:30:00 13:30:00 ULTRASOUND2 04 [facility] 2019-10-19 2019-10-19 Outpatient [place], [facility] [id number] 15:00:00 23:59:59 Denita Rayshawn Pedroza 2019-10-07 2019-10-07 Outpatient [place], [facility] [id number] 09:30:00 23:59:59 Musa Tequila Baljit 2019-06-20 2019-06-20 Appointmen SANDRA CHRIS [facility] [id number] [facility] 13:15:00 13:15:00 t; IESHA BECKER - Blake [facility] IESHA BECKER Physi ci ans 2019-06-06 2019-06-06 [place] [id number] [facility] 14:30:00 14:30:00 t Specialty/U Katie siegel - Specialty rology Memori a /Urology Clinic l Clinic Outpati ent Clinics 2019-05-09 2019-05-09 Appointmen JEANIE FLORES Orthopedics [id number] Univers 14:00:00 14:00:00 tANDRA Pineda - Blake lan of [place] RE, ANDRA, Physi ci M.D. ans 2017-10-28 2017-10-28 Outpatient [place], [id number]. [id number]. 4 [id number] 14:02:00 23:59:00 Jonathan Edoze [id number] 5.108 2017-10-07 2017-10-07 Outpatient [place], 2.16.840. 2.16.840.1. 4 [id number] 07:38:00 23:59:00 Jonathan Edoze [id number] 5.108 2017-08-07 2017-08-07 [facility] [place] [id number] Univers 07:45:00 07:45:00 t; ANDRA Munguia Orth[facility] itnadege [facility] ANDRA RITTER, Physi ci M.D. ans 2017-02-06 2017-02-06 [facility] [id number] Univers 08:30:00 08:30:00 t; ANDRA Munguia ity of [facility] [place] ANDRA RITTER, Physi ci M.D. ans 2017-01-28 2017-01-28 [facility] [id number] Univers 08:15:00 08:15:00 t; ANDRA Munguia ity of [facility] [place] ANDRA RITTER, Physi ci M.D. ans 2016-10-27 2016-10-27 [facility] [id number] Univers 08:15:00 08:15:00 t; ANDRA Munguia ity of [facility] [place] ANDRA RITTER, Physi ci M.D. ans 2016-09-15 2016-09-15 [facility] [id number] Univers 08:00:00 08:00:00 t; IESHA BECKER [place], [place] IESHA BECKER Physi ci ans 2016-08-19 2016-08-19 [facility] UTP [id number] Univers 08:00:00 08:00:00 t; IESHA BECKERy of [place], [place] ROSITA STOVE REFINISHER Physi ci ans 2016-08-05 2016-08-05 [facility] [id number] Univers 08:00:00 08:00:00 t; ANDRA [facility]unguia ity of [facility] [place] RE, ANDRA, Physi ci M.D. ans 2016-06-23 2016-06-23 [facility] UTP [id number] Univers 08:45:00 08:45:00 t; ANDRA Munguia ity of [facility] [place] RE, ANDRA, Physi ci M.D. ans 2016-06-09 2016-06-09 [facility] UTP [id number] Univers 10:00:00 10:00:00 t; IESHA BECKER itnadege of [facility] [place] IESHA BECKER Physi ci ans 2016-05-26 2016-05-26 [facility] ARIES, [facility] UTP [id number] Univers 09:00:00 09:00:00 t; IESHA BECKER itnadege of [place], [place] IESHA BECKER Physi ci ans 2016-05-13 2016-05-13 [facility] [id number] Univers 09:00:00 09:00:00 t; ANDRA Munguia ity of [facility] [place] RE, ANDRA, Physi ci M.D. ans 2016-04-14 2016-04-14 [facility] [id number] Univers 09:00:00 09:00:00 t; ANDRA [facility]unguia ity of [facility] [place] RE, ANDRA, Physi ci M.D. 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 Physi ci ans Results Test Description Test Time Test Comments Results Result Comments Source ANEMIA STUDY 2020-07-02 9.4 [facility] taylor 17:21:00 ANEMIA STUDY 2020-07-02 337 [facility] taylor 17:21:00 ANEMIA STUDY 2020-07-02 85 [facility] taylor 17:21:00 ANEMIA STUDY 2020-07-02 298 [facility] taylor 17:21:00 ANEMIA STUDY 2020-07-02 29 [facility] taylor 17:21:00 ANEMIA STUDY 2020-07-02 60 [facility] taylor 17:21:00 CHEM PANEL 2020-07-02 2.2 [facility] Donna nn 17:21:00 CHEM PANEL 2020-07-02 99 [facility] nn 17:21:00 CHEM PANEL 2020-07-02 11 [facility] nn 17:21:00 CHEM PANEL 2020-07-02 0.97 [facility] nn 17:21:00 CHEM PANEL 2020-07-02 60 [facility] Donna nn 17:21:00 CHEM PANEL 2020-07-02 70 [facility] Donna nn 17:21:00 CHEM PANEL 2020-07-02 142 [facility] nn 17:21:00 CHEM PANEL 2020-07-02 3.9 [facility] nn 17:21:00 CHEM PANEL 2020-07-02 104 [facility] nn 17:21:00 CHEM PANEL 2020-07-02 28 [facility] nn 17:21:00 CHEM PANEL 2020-07-02 9.8 [facility] nn 17:21:00 CHEM PANEL 2020-07-02 6.3 [facility] nn 17:21:00 CHEM PANEL 2020-07-02 3.9 [facility] nn 17:21:00 CHEM PANEL 2020-07-02 2.4 [facility] nn 17:21:00 CHEM PANEL 2020-07-02 1.6 [facility] nn 17:21:00 CHEM PANEL 2020-07-02 1.0 [facility] nn 17:21:00 CHEM PANEL 2020-07-02 90 [facility] nn 17:21:00 CHEM PANEL 2020-07-02 21 [facility] nn 17:21:00 CHEM PANEL 2020-07-02 19 [facility] nn 17:21:00 HEMATOLOGY 2020-07-02 5.5 [facility] nn 17:21:00 HEMATOLOGY 2020-07-02 5.52 [facility] nn 17:21:00 HEMATOLOGY 2020-07-02 15.1 [facility] nn 17:21:00 HEMATOLOGY 2020-07-02 47.3 [facility] nn 17:21:00 HEMATOLOGY 2020-07-02 85.7 [facility] nn 17:21:00 HEMATOLOGY 2020-07-02 17:21:00 Test Item Value Reference Range Interpretation Comme nts MCH (test code = MCH) 27.4 pg 27.0-33.0 [facility] JeghmgiOPENYSCBEF5430-73-19 17:21:0031.9[facility] HermannHEMATOLOGY 2020-07-02 17:21:0014.0[facility] UdzxpbmQTSNNXWBTT4204-00-17 17:21:99106Yavgtstg NvqlmlaHHJYCDUAQH8993-17-34 17:21:0011.6[facility] NdkqooqYFHJUXQKWG1624-90-66 17:21:563929Bgolitvr AqxpbwpLWFQWJQJZB3999-98-24 17:21:800462Tvgwxvpk [place] AIIHVMBYFQ9610-91-79 17:21:98207Jdilziyb PkwlzqxBARHQJKERL7713-48-34 17:21:0077 [facility] NzrjtxlNAUDFLYXTO1289-67-46 17:21:0061[facility] HermannHEMATOLOGY 2020-07-02 17:21:0054.3[facility] VzwbzumUEQYDZDFVL7519-79-58 17:21:0036.0[facility] BvrzsdrYRHFLMMTDL6966-99-23 17:21:007.2[facility] GlhcnlfFVJKWSWXPB1223-89-88 17:21:001.4[facility] RytafqjDXREAZYWMH8518-24-72 17:21:001.1[facility] [place] MSLLXMIYYF7356-96-81 17:21:0016Mem[facility] OgsvwanYUHEZW0273-91-00 17:21:61279 Memorial UqogeqfIWYMLA9429-50-14 17:21:0071[facility] NeqeersTVUWDE3186-39-31 17:21:53046Dyqllrlp PbslkccOFMQHV0898-40-84 17:21:21296Lcwfidoa HermannLIPIDS 2020-07-02 17:21:002.9[facility] RngxmvlKQMPOJ2157-14-17 17:21:45576Jbiqjyjh HermannPARATHYROID NTSAJQD1151-91-38 17:21:0056Mem[facility] HermannSPECIAL CHEMISTRY 2020-07-02 17:21:005.2[facility] HermannCHEM TBIOC8209-28-48 09:40:0087Mem[facility] HermannCHEM SHIDG4133-29-91 09:40:007[facility] HermannCHEM KQNVJ1094-69-15 09:40:000.79[facility] HermannCHEM YJAMX1201-15-41 09:40:92950Napnflub HermannCHEM ZPZDL0572-27-88 09:40:004.0[facility] HermannCHEM HHFAZ5973-24-66 09:40:84437 [facility] HermannCHEM MIAZM8666-67-97 09:40:0029Mem[facility] HermannCHEM PANEL 2020-03-30 09:40:009.2[facility] HermannCHEM OADUT5832-44-84 09:40:0011.0[facility] HermannCHEM JYTYP6579-70-58 09:40:0077[facility] DwitxujLEQOYBHUAQ9855-78-05 09:40:008.1[facility] XyupxljZUDTANBXLC8924-48-23 09:40:004.73[facility] Dontrell KYPWMDSLTH7703-91-57 09:40:0013.4[facility] OgoqybuUHFLNWECGH1753-17-07 09:40:00 40.8[facility] DskfeziTUUCCJKUHB3144-63-55 09:40:0086.2[facility] HermannHEMATOLOGY 2020-03-30 09:40:00 Test Item Value Reference Range Interpretation Comments MCH (test code = MCH) 28.4 pg 27.0-31.0 [facility] JwbvownCTOGIDOOND1705-00-66 09:40:0032.9[facility] HermannHEMATOLOGY 2020-03-30 09:40:0014.1[facility] CwubcmhQYXGWCUHOJ4290-92-31 09:40:71055Fyrfdbqn TjrhgaoIWZXZMLRJN3845-60-93 09:40:009.0[facility] KacnbryMRNVAOOGQK6151-23-58 09:40:00 Test Item Value Reference Range Interpretation Comments PTT (test code = PTT) 33.1 s 22.9-35.8 Memorial BklxcgjFTCFVRNFRL3718-20-33 09:40:00 Test Item Value Reference Range Interpretation Comments PT (test code = PT) 13.9 s 12.0-14.7 [facility] KzqpvcoBLUOLSSQHK3957-07-27 09:40:00 Test Item Value Reference Range Interpretation Comments INR (test code = INR) 1.07 1 0.85-1.17 [facility] ZcqyhihRWHRKDRKOV4541-74-52 09:40:0067.5[facility] HermannHEMATOLOGY 2020-03-30 09:40:0022.4[facility] SinuzikRTJXQCIGQD4975-99-00 09:40:007.2[facility] PkcjbwdPZNVFWWEWR6621-96-35 09:40:002.3[facility] WnvcyjeSWHTQARGLT4706-74-06 09:40:000.6[facility] CcttcfzDWBRKNFFMJ4073-87-13 09:40:005.5[facility] [place] GCWPXZWLJE7195-56-72 09:40:001.8[facility] SmyvqmpXQSJQJGFXH4041-42-18 09:40:000.6 Memorial YgjalclFZMPHPFYRX3812-73-89 09:40:000.2[facility] HermannHEMATOLOGY 2020-03-30 09:40:000.1[facility] HermannCHEM QSXVY4649-47-93 11:49:83198Hajrjhis HermannCHEM LJGHA9516-65-83 11:49:0011Mem[facility] HermannCHEM PZIMH2216-08-81 11:49:000.88Mem[facility] HermannCHEM CQHWS2202-86-62 11:49:92065Tyiwgbnx HermannCHEM XCKYG7870-19-33 11:49:004.emorial HermannCHEM BTBZC9658-91-43 11:49:57698 [facility] HermannCHEM MITWB4114-47-90 11:49:0028Mem[facility] HermannCHEM PANEL 2020-03-29 11:49:009.5[facility] HermannCHEM UAKER0824-50-31 11:49:0012.2[facility] HermannCHEM WKMJO0308-34-17 11:49:0068Mem[facility] YhzffuaJHEGBMVBOS1094-12-87 11:49:0012.7[facility] RexwhdzKPMGGGSHSI5434-29-07 11:49:004.93[facility] [place] QMRPLBBVJH0098-07-48 11:49:0013.8[facility] WcxtkmzJVBCDGABLS1806-38-51 11:49:00 42.2[facility] OrwigcjSKRJIDVHHX0456-29-27 11:49:0085.6[facility] HermannHEMATOLOGY 2020-03-29 11:49:00 Test Item Value Reference Range Interpretation Comments MCH (test code = MCH) 28.0 pg 27.0-31.0 [facility] MbchioyXYJCWDAFPE2200-20-48 11:49:0032.7[facility] HermannHEMATOLOGY 2020-03-29 11:49:0014.2[facility] HcudpxtBYWDKLKRON8241-23-78 11:49:15164Bxirhznk WpteitoFCKAGHESCB3225-73-79 11:49:008.7[facility] FxbicgyPRRKKSCPLA3537-01-17 11:49:00 Test Item Value Reference Range Interpretation Comments PTT (test code = PTT) 30.4 s 22.9-35.8 [facility] TrrnsphESQWFLPWOL7617-53-63 11:49:00 Test Item Value Reference Range Interpretation Comments PT (test code = PT) 13.5 s 12.0-14.7 [facility] BsghrvsNCICIXHGGU7340-50-66 11:49:00 Test Item Value Reference Range Interpretation Comments INR (test code = INR) 1.03 1 0.85-1.17 [facility] OqsrfbrGMRWRTNCYV3038-21-61 11:49:0080.7[facility] HermannHEMATOLOGY 2020-03-29 11:49:0012.3[facility] EckikgyNQDTBZAMUW5341-15-41 11:49:006.5[facility] FnrofhmCMHOMRQVLF9545-66-57 11:49:000.5[facility] ZsslfzqBZDCEPYYOA6095-88-34 11:49:0010.3[facility] RggkbjdTVXWBEETLZ2580-21-23 11:49:001.6[facility] NTERTHJEZH8356-48-07 11:49:000.8[facility] YpcnbiaBNXBHKGVHE8644-85-92 11:49:000.1 [facility] HermannBLOOD BANK DZBDWLL6983-28-97 17:25:00Negative (03/26/20 12:25 PM) [facility] HermannCHEM ORBOX5599-37-16 17:25:78843Cehcpgno HermannCHEM PANEL 2020-03-26 17:25:0017Mem[facility] HermannCHEM ARKWB6477-29-34 17:25:001.02[facility] HermannCHEM GLIKC9944-46-16 17:25:34528Lllehhen HermannCHEM ZKIYG2331-78-41 17:25:004.2[facility] HermannCHEM TTHHF1565-94-28 17:25:21087Yoaatmtg HermannCHEM OAPNJ7545-34-81 17:25:0027[facility] HermannCHEM AILTX1913-66-17 17:25:009.8 [facility] HermannCHEM PJQAZ9553-24-17 17:25:003.8[facility] HermannCHEM PANEL 2020-03-26 17:25:0031Mem[facility] HermannCHEM SQUIS5933-64-12 17:25:0020Mem[facility] HermannCHEM PCFAT6657-94-93 17:25:008.2[facility] HermannCHEM RSKHF2199-11-31 17:25:00 Test Item Value Reference Range Interpretation Comments B/C Ratio (test code = B/C Ratio) 17 1 6-25 [facility] HermannCHEM NACBJ5016-71-23 17:25:0057Mem[facility] HermannCHEM PANEL 2020-03-26 17:25:007.8[facility] HermannCHEM UACMY2591-06-16 17:25:0076Mem[facility] HermannCHEM PHKAE4301-08-47 17:25:000.8[facility] HermannCHEM NYLCZ4552-27-61 17:25:004.0[facility] HermannCHEM QAOKA3735-30-02 17:25:00 Test Item Value Reference Range Interpretation Comments A/G Ratio (test code = A/G Ratio) 1.0 1 0.7-1.6 [facility] HermannCHEM WOTYJ5406-75-98 17:25:69187Bddxkmxq HermannHEMATOLOGY 2020-03-26 17:25:006.9[facility] WaqblzmAICWYAQDVT9662-17-51 17:25:005.50Mem[facility] BlphiiiEIKWFYYVID6885-71-24 17:25:0015.4[facility] PftrlnlDQPNJIEMBQ0593-63-02 17:25:0047.5[facility]orial FztsnavHZWTTTRVUQ8501-39-99 17:25:0086.4[facility] VDLOYVINEE6066-25-43 17:25:00 Test Item Value Reference Range Interpretation Comments MCH (test code = MCH) 27.9 pg 27.0-31.0 [facility] YebrysvHCREQXWVYC2962-79-14 17:25:0032.3[facility] HermannHEMATOLOGY 2020-03-26 17:25:0014.4[facility] CzvvxzmTWOOLPUGNH9433-17-19 17:25:68085Ezxdsdxm WmzaymcEUCRYUFKNI0384-98-71 17:25:008.4[facility] OqdcotaNXQNWQLFBZ1102-43-96 17:25:00 Test Item Value Reference Range Interpretation Comments PT (test code = PT) 13.5 s 12.0-14.7 [facility] DckkfvsDZXDLZFGWU3243-81-03 17:25:00 Test Item Value Reference Range Interpretation Comments INR (test code = INR) 1.03 1 0.85-1.17 [facility] JwmfwvzCAAUABRWYP6507-87-53 17:25:00 Test Item Value Reference Range Interpretation Comments PTT (test code = PTT) 27.2 s 22.9-35.8 Memorial QbfbizoPWQIZVHDMS7696-80-84 17:25:0057.8[facility] HermannHEMATOLOGY 2020-03-26 17:25:0031.7[facility] OjblxpcDOODSGHIGT4125-35-91 17:25:007.6[facility] UpukusrKXTNXQXZID1312-02-57 17:25:001.9[facility] VqaseqbBYRRCPSAOJ5223-26-24 17:25:001.0[facility] NvmmrteNAZDTCWWZG8050-89-79 17:25:004.0[facility] [place] BTQIPZFKVX8316-38-32 17:25:002.2[facility] MgwhjzxMGDGNGSNQB0396-60-67 17:25:000.5 Memorial AresksxAIQRZHNOJY7391-71-44 17:25:000.1[facility] HermannHEMATOLOGY 2020-03-26 17:25:000.1[facility] HermannTETRACYCLINE:SUSC:PT:ISOLATE:ORDQN:GILES 2020-03-26 17:25:00Enterococcus SpeciesMemorial HermannURINE AND JGTAQ6554-46-31 17:25:00Yellow *NA*(03/26/20 12:25 PM)[facility] HermannURINE AND CAWOE2282-98-86 17:25:00Slight *ABN*(03/26/20 12:25 PM)[facility] HermannURINE AND UATNA9286-96-48 17:25:00 Test Item Value Reference Range Interpretation Comments UA Spec Grav (test code = UA Spec 1.012 1 Grav) [facility]annURINE AND RBXXF9200-70-52 17:25:00 Test Item Value Reference Range Interpretation Comments UA pH (test code = UA pH) 5.0 1 5.0-8.0 [facility]annURINE AND WGJPJ2195-29-16 17:25:00Negative *NA*(03/26/20 12:25 PM) [facility]annUR[facility] AND XAPRS8663-18-83 17:25:00Small *ABN*(03/26/20 12:25 PM) [facility]annUR[facility] AND INHCE8395-71-91 17:25:00Negative (03/26/20 12:25 PM) [facility]annUR[facility] AND SQHNF5545-37-12 17:25:00Small *ABN*(03/26/20 12:25 PM) [facility]annUR[facility] AND GLBAS3266-80-51 17:25:0014Mem[facility] HermannURINE AND FORGW9482-92-19 17:25:004[facility] PjxbagkGJAVWPGURC7326-39-17 16:35:00Not Detected *NA*(03/26/20 11:35 AM)[facility] [place][U] XRAY FOOT MIN 3 VWS RIGHT [id number] 13:24:00Images acquired, not reported on this accession number. [facility][U] XRAY FOOT MIN 3 VWS RIGHT [id number] 14:54:00Images acquired, not reported on this accession number.[facility] PhysiciansRI, MACHINE ETCHER IN OR/30 MINUTE [id number] 17:59:00Reason for exam:->ureteral stent placementFINAL REPORT Fluoroscopy nonspecific dated November 23, 1017 Comment: Total fluoroscopy time was 4 minutes and 29 seconds. Total number of fluoroscopy images were 1. The fluoroscopy study was provided to Dr. Bautista for intraoperative procedure. No radiologist was present during the examination. Signed: Denita Garvey MDReport Verified Date/Time: 11/23/2017 17:59:05 Reading Location: [address] Radiology Reading Room URINE [id number] 14:16:00 Test Item Value Reference Range Interpretation Comments CULTURE (BEAKER) (test code = 1095) Ampicillin (test S code = 26) Linezolid (test code S = 40) Nitrofurantoin (test S code = 23) Tetracycline (test R code = 2) Vancomycin (test S code = 13) CULTURE (BEAKER) ENTEROCOCCUS A >100,000 co l/mL (test code = 1095) SPECIES Enterococ cus species Ampicillin (test S code = 26) Linezolid (test code S = 40) Nitrofurantoin (test S code = 23) Tetracycline (test R code = 2) Vancomycin (test S code = 13) CULTURE (BEAKER) A >100,000 co l/mL (test code = 1095) Enterococ cus speciesof a second type 40-49,000 col/mL skin floraURINALYSIS W/ WDYTUYRIPZD0130-23-29 12:00:00 Test Item Value Reference Range Interpretation Comments COLOR (BEAKER) (test code = 470) Light Yellow CLARITY (BEAKER) (test code = Clear 469) SPECIFIC GRAVITY UA (BEAKER) 1.004 1.001-1.035 (test code = 468) PH UA (BEAKER) (test code = 467) 5.5 5.0-8.0 PROTEIN UA (BEAKER) (test code = Negative Negative 464) GLUCOSE UA (BEAKER) (test code = Negative Negative 365) KETONES UA (BEAKER) (test code = Negative Negative 371) BILIRUBIN UA (BEAKER) (test code Negative Negative = 462) BLOOD UA (BEAKER) (test code = Negative Negative 461) NITRITE UA (BEAKER) (test code = Negative Negative 465) LEUKOCYTE ESTERASE UA (BEAKER) Large Negative A (test code = 466) UROBILINOGEN UA (BEAKER) (test 0.2 mg/dL 0.2-1.0 code = 463) RBC UA (BEAKER) (test code = 2 /HPF 519) WBC UA (BEAKER) (test code = 2 /HPF 520) BACTERIA (BEAKER) (test code = Rare 517) MUCUS (BEAKER) (test code = Rare 1574) SQUAMOUS EPITHELIAL (BEAKER) 3 /HPF (test code = 516) SOURCE(BEAKER) (test code = 8905) BASIC METABOLIC [id number] 11:33:00 Test Item Value Reference Range Interpretation Comments SODIUM (BEAKER) 140 meq/L 136-145 (test code = 381) POTASSIUM (BEAKER) 4.1 meq/L 3.5-5.1 (test code = 379) CHLORIDE (BEAKER) 101 meq/L 98-107 (test code = 382) CO2 (BEAKER) (test 32 meq/L 22-29 H code = 355) BLOOD UREA NITROGEN 19 mg/dL 7-21 (BEAKER) (test code = 354) CREATININE (BEAKER) 1.01 mg/dL 0.57-1.25 (test code = 358) GLUCOSE RANDOM 89 mg/dL 70-105 (BEAKER) (test code = 652) CALCIUM (BEAKER) 10.3 mg/dL 8.4-10.2 H (test code = 697) EGFR (BEAKER) (test 55 mL/min/1.73 ESTIMA ELIO GFR IS code = 1092) sq m NOT ACCURATE CREATININE CLEARANCE IN PREDICTING GLOMERULAR FILTRATION RATE . ESTIMATED GFR I S NOT APPLICABLE FOR DIALYSIS PATIEN TS. CBC W/PLT COUNT & AUTO [id number] 11:11:00 Test Item Value Reference Range Interpretation Comments WHITE BLOOD CELL COUNT (BEAKER) 7.9 K/ L 3.5-10.5 (test code = 775) RED BLOOD CELL COUNT (BEAKER) 5.56 M/ L 3.93-5.22 H (test code = 761) HEMOGLOBIN (BEAKER) (test code = 14.8 GM/DL 11.2-15.7 410) HEMATOCRIT (BEAKER) (test code = 47.8 % 34.1-44.9 H 411) MEAN CORPUSCULAR VOLUME (BEAKER) 86.0 fL 79.4-94.8 (test code = 753) MEAN CORPUSCULAR HEMOGLOBIN 26.6 pg 25.6-32.2 (BEAKER) (test code = 751) MEAN CORPUSCULAR HEMOGLOBIN CONC 31.0 GM/DL 32.2-35.5 L (BEAKER) (test code = 752) RED CELL DISTRIBUTION WIDTH 14.0 % 11.7-14.4 (BEAKER) (test code = 412) PLATELET COUNT (BEAKER) (test 304 K/CU MM 150-450 code = 756) MEAN PLATELET VOLUME (BEAKER) 10.1 fL 9.4-12.3 (test code = 754) NUCLEATED RED BLOOD CELLS 0 /100 WBC 0-0 (BEAKER) (test code = 413) NEUTROPHILS RELATIVE PERCENT 57 % (BEAKER) (test code = 429) LYMPHOCYTES RELATIVE PERCENT 32 % (BEAKER) (test code = 430) MONOCYTES RELATIVE PERCENT 8 % (BEAKER) (test code = 431) EOSINOPHILS RELATIVE PERCENT 2 % (BEAKER) (test code = 432) BASOPHILS RELATIVE PERCENT 1 % (BEAKER) (test code = 437) NEUTROPHILS ABSOLUTE COUNT 4.48 K/ L 1.56-6.13 (BEAKER) (test code = 670) LYMPHOCYTES ABSOLUTE COUNT 2.51 K/ L 1.18-3.74 (BEAKER) (test code = 414) MONOCYTES ABSOLUTE COUNT (BEAKER) 0.65 K/ L 0.24-0.36 H (test code = 415) EOSINOPHILS ABSOLUTE COUNT 0.12 K/ L 0.04-0.36 (BEAKER) (test code = 416) BASOPHILS ABSOLUTE COUNT (BEAKER) 0.06 K/ L 0.01-0.08 (test code = 417) IMMATURE GRANULOCYTES-RELATIVE 1 % 0-1 PERCENT (BEAKER) (test code = 2801) RAD, CHEST, 2 [id number] 11:09:00Reason for exam:->pre opShould this be performed at the bedside?->NoFINAL REPORT Chest, 2 views. Clinical History: pre op Comparison Study: None Findings: The heart and lungs are within normal limits. The pleural spaces are clear. No significant bony or soft tissue abnormalities are seen. Impression: No active cardiopulmonary disease. Signed:Bong Oh MDReport Verified Date/Time: 11/03/2017 11:09:46 Reading Location: [address] Radiology Reading Room [U] XR KNEE 3 VWS [id number] 08:40:00Images acquired, not reported on this accession number.[facility]
--- OUTSIDE RECORDS SUMMARY | 2020-08-03 14:35 | XMS REPORT ---
:1950 Author Organization [facility] Address [address] [place] [address] Care Team Providers Name Role Phone Cristy Mejias Unavailable [phone] PROBLEMS Type Condition ICD9-CM [id number] Onset Condition SNOMED Code Notes Code Code Dates Status Problem Renal cell C64.9 Active 791601858 carcinoma, unspecified laterality ALLERGIES Allergen (clinical drug Drug/Non Drug Allergy Reaction Allergy Type Onset Date Status ingredient) documented on EMR codeine codeine Unknown Drug Allergy Active ENCOUNTERS from 1950 to 2020-06-16 Encounter Location Date Provider Diagnosis [facility] [address] [facility] May, Cristy Mejias Urinary tract Specialty/Urology [address] [place] [address] [address] [place] [id number] Renal cell carcinoma, unspecified laterality C64. 9 IMMUNIZATIONS No Information SOCIAL HISTORY Tobacco Use: Social History Observation Description Date Details (start date - stop date) Never Smoker Sex Assigned At : Social History Observation Description Sex Assigned At Unknown Alcohol Screen Question Answer Notes Did you have a drink containing alcohol in the past year? No Points 0 Interpretation Negative Tobacco Use/Smoking Question Answer Notes Are you a never smoker REASON FOR REFERRAL No Information VITAL SIGNS Height 62.5 in May, Weight 226 lbs May, Temperature 98.4 degrees Fahrenheit May, BMI 40.67 kg/m2 May, Oximetry 95 % May, Blood pressure systolic 135 mm Hg May, Blood pressure diastolic 66 mm Hg May, MEDICATIONS Medication SIG (Take, Route, Start Date End Date Status Frequency, Duration) Cymbalta 60 MG 1 capsule Orally Once a day Active for 30 day(s) Cipro 500 MG 1 tablet Orally every 12 May, May, Act josh hrs for 5 days Estradiol 0.1 MG/GM as directed Vaginal Two Active times a Week for 90 days Losartan Potassium 25 MG 1 tablet Orally Once a day Active for 30 day(s) PROCEDURES No Information RESULTS No Results REASON FOR VISIT UTI MEDICAL (GENERAL) HISTORY Type Description Date Surgical History gallbladder removed Surgical History abdominal hysterectomy Surgical History right partial nephrectomy Surgical History hernia repair Goals Section No Information Health Concerns No Information MEDICAL EQUIPMENT No Information MENTAL STATUS No Information FUNCTIONAL STATUS No Information ASSESSMENTS Encounter Date Diagnosis Notes May, Renal cell carcinoma, unspecified latera lity (ICD-10 - C64.9) May, Urinary tract infection (ICD-10 - N39.0) PLAN OF TREATMENT Medication Medication Name Sig Start Date Stop Date Cipro 500 MG 1 tablet Orally every 12 hrs for 5 days May, May, Estradiol 0.1 MG/GM as directed Vaginal Two times a Week for 90 days Treatment Notes Assessment Notes Clinical Notes Urinary tract infection Restart vaginal creamUrine reflexStart CiproStop oxybutynin from last visitKeep f/u with Dr. Garces prnROV prn Treatment Notes Test Name Order Date URINALYSIS AUTO W/O SCOPE ([id number]) 2020-06-16 UMIC with Reflex to Urine Culture 2020-06-16 Next Appt Details prn Reason:urine Follow Up:prnurine Insurance Providers Payer Name Payer Address Payer Insured Patient Coverage Cover age Phone Name Relationship to Start Date End Date Insured [employer] [address] [phone] Karel, self and Blue [facility] [address] [facility] [address] MEDICARE Attn Part B [id number] Karel, self [employer] Claims [address] [place] [address] [facility] [address] [address]
--- NOTE | 2020-08-03 16:20 | RAD REPORT ---
EXAM DESCRIPTION: CT - [id number] - 08/03/2020 3:53 pm CLINICAL HISTORY: PAIN, trip and fall, headache, neck pain COMPARISON: Head Brain Wo Cont dated 11/29/2018 TECHNIQUE: Axial 5 mm thick images of the head were obtained. Axial 2 mm thick images of the cervic al spine were obtained with sagittal and coronal reconstruction images generated and reviewed. All CT scans are performed using dose optimization technique as appropriate and may include automated exposure control or mA/KV adjustment according to patient size. FINDINGS: No intracranial hemorrhage, mass, edema or acute intracranial finding. No suspicion for ac chloé infarction. No extra-axial fluid collections. Mastoid air cells and paranasal sinuses are clear. Patient has minimal atrophy chronic ischemic change. Ventricles are normal. No globe or orbital chriss nt abnormality seen. Patient has a small to moderate-sized hematoma in the right periorbital and righ t supraorbital scalp soft tissues. Intracranial findings are not significantly different from November 23. Cervical body height and alignment are normal. Mild disc space narrowing noted at C4-5 and C5-6. Adva nced disc space narrowing at C6-7 with associated endplate spurring seen. Facet joint degenerative ch anges are present in the mid and lower cervical spine. There is significant right foraminal stenosis at C5-6 from uncovertebral joint hypertrophy. There is bilateral C6-7 bony foraminal encroachment as well. No fracture or acute bony abnormality. Central canal detail is inherently limited. No paraspinal mass or hematoma. IMPRESSION: Negative CT head examination for acute or significant finding. Right periorbital and sup raorbital scalp hematoma changes. Negative CT cervical spine examination for acute or significant finding. Degenerative changes are pr esent causing bilateral C6-7 and right-sided C5-6 bony foraminal stenosis.
--- NOTE | 2020-08-03 16:47 | ER ---
Nurse's Notes [facility] Name: Estelita Vinson Age: 69 yrs Sex: Female : 1950 Arrival Date: 08/03/2020 Time: 14:34 Bed 24 Private MD: Diagnosis: Superficial injury of head Presentation: 08/03 14:47 Chief complaint: Patient states: tripped at [facility] over a box of items, fell and hit em the wall, denies LOC or taking blood thinners, reports headache and has a hematoma noted above right eye, denies neck pain. Coronavirus screen: Client denies travel out of the [place] in the last 14 days. Ebola Screen: Patient negative for fever greater than or equal to 101.5 degrees Fahrenheit, and additional compatible Ebola Virus Disease symptoms Patient denies exposure to infectious person. Patient denies travel to an Ebola-affected area in the 21 days before illness onset. No symptoms or risks identified at this time. Initial Sepsis Screen: Does the patient meet any 2 criteria? No. Patient's initial sepsis screen is negative. Does the patient have a suspected source of infection? No. Patient's initial sepsis screen is negative. Risk Assessment: Do you want to hurt yourself or someone else? Patient reports no desire to harm self or others. Onset of symptoms was August 03, 2020. 14:47 Method Of Arrival: Ambulatory em 14:47 Acuity: CURT 4 em Historical: - Allergies: 14:50 CEPHALOSPORINS; em 14:50 Codeine; em - PMHx: 14:50 Hypertension; renal cell carcinoma of left kidney; em - PSHx: 14:50 Cholecystectomy; partial nephrectomy on the right; Hysterectomy; Tonsillectomy; em - Immunization history:: Adult Immunizations up to date. - Social history:: Smoking status: Patient denies any tobacco usage or history of. Vital Signs: 14:47 Pulse 58; Resp 18; Temp 97.4; Pulse Ox 98% on R/A; Weight 96.62 kg; Height 5 ft. 5 in. em (165.10 cm); Pain 2/10; 14:47 Body Mass Index 35.44 (96.62 kg, 165.10 cm) em ED Course: 14:34 Patient arrived in ED. ag5 14:49 Triage completed. em 14:50 Arm band placed on. em 14:54 Ananth Wilcox MD is Attending Physician. kdr 15:17 Byron Yarbrough, RN is Primary Nurse. sg 15:53 CT Head C Spine In Process Unspecified. EDMS Administered Medications: No medications were administered Outcome: 16:46 Discharge ordered by . kdr 16:58 Patient left the ED. sg Signatures: Dispatcher [employer] EDMS Byron Yarbrough, RN RN sg Ananth Wilcox MD MD [facility] Lonnie Perez, NATALY RN Tomeka Gonzalez ag5
--- NOTE | 2020-08-03 16:47 | EDPHYS ---
Physician Documentation [facility] Name: Estelita Vinson Age: 69 yrs Sex: Female : 1950 Arrival Date: 08/03/2020 Time: 14:34 Bed 24 Private MD: ED Physician Ananth Wilcox HPI: 08/03 18:27 This 69 yrs old Female presents to ER via Ambulatory with complaints of Fall kdr Injury, Head Injury-Adult. 18:27 Details of fall: The patient fell from an upright position, while standing, while kdr walking. Onset: The symptoms/episode began/occurred acutely, suddenly, just prior to arrival. Associated injuries: The patient sustained injury to the head, contusion, hematoma, pain, swelling, tenderness, Right orbit. Severity of symptoms: At their worst the symptoms were mild, in the emergency department the symptoms are unchanged. The patient has not experienced similar symptoms in the past. The patient has not recently seen a physician. 18:27 The patient stumbled and hit the vertical door jam with her face/right orbit. kdr Historical: - Allergies: 14:50 CEPHALOSPORINS; em 14:50 Codeine; em - PMHx: 14:50 Hypertension; renal cell carcinoma of left kidney; em - PSHx: 14:50 Cholecystectomy; partial nephrectomy on the right; Hysterectomy; Tonsillectomy; em - Immunization history:: Adult Immunizations up to date. - Social history:: Smoking status: Patient denies any tobacco usage or history of. ROS: 18:27 Constitutional: Negative for fever, chills, and weight loss, Neck: Negative for injury, kdr pain, and swelling, Cardiovascular: Negative for chest pain, palpitations, and edema, Respiratory: Negative for shortness of breath, cough, wheezing, and pleuritic chest pain, Abdomen/GI: Negative for abdominal pain, nausea, vomiting, diarrhea, and constipation, Back: Negative for injury and pain, : Negative for injury, bleeding, discharge, and swelling, MS/Extremity: Negative for injury and deformity, Skin: Negative for injury, rash, and discoloration, Neuro: Negative for headache, weakness, numbness, tingling, and seizure activity. Psych: Negative for depression, anxiety, suicide ideation, homicidal ideation, and hallucinations, Allergy/Immunology: Negative for hives, rash, and allergies, Endocrine: Negative for neck swelling, polydipsia, polyuria, polyphagia, and marked weight changes, Hematologic/Lymphatic: Negative for swollen nodes, abnormal bleeding, and unusual bruising. Exam: 18:27 Constitutional: This is a well developed, well nourished patient who is awake, alert, kdr and in no acute distress. Head/Face: Normocephalic, atraumatic - edxcept for contuison around upper lateral right orbit Eyes: Pupils equal round and reactive to light, extra-ocular motions intact. Lids and lashes normal. Conjunctiva and sclera are non-icteric and not injected. Cornea within normal limits. Periorbital areas with no swelling, redness, or edema. Neck: Trachea midline, no thyromegaly or masses palpated, and no cervical lymphadenopathy. Supple, full range of motion without nuchal rigidity, or vertebral point tenderness. No Meningismus. Chest/axilla: Normal chest wall appearance and motion. Nontender with no deformity. No lesions are appreciated. Cardiovascular: Regular rate and rhythm with a normal S1 and S2. No gallops, murmurs, or rubs. Normal PMI, no JVD. No pulse deficits. Respiratory: Lungs have equal breath sounds bilaterally, clear to auscultation and percussion. No rales, rhonchi or wheezes noted. No increased work of breathing, no retractions or nasal flaring. Abdomen/GI: Soft, non-tender, with normal bowel sounds. No distension or tympany. No guarding or rebound. No evidence of tenderness throughout. Back: No spinal tenderness. No costovertebral tenderness. Full range of motion. Skin: Warm, dry with normal turgor. Normal color with no rashes, no lesions, and no evidence of cellulitis. MS/ Extremity: Pulses equal, no cyanosis. Neurovascular intact. Full, normal range of motion. Neuro: Awake and alert, GCS 15, oriented to person, place, time, and situation. Cranial nerves II-XII grossly intact. Motor strength 5/5 in all extremities. Sensory grossly intact. Cerebellar exam normal. Normal gait. Psych: Awake, alert, with orientation to person, place and time. Behavior, mood, and affect are within normal limits. Vital Signs: 14:47 Pulse 58; Resp 18; Temp 97.4; Pulse Ox 98% on R/A; Weight 96.62 kg; Height 5 ft. 5 in. em (165.10 cm); Pain 2/10; 14:47 Body Mass Index 35.44 (96.62 kg, 165.10 cm) em MDM: 16:46 Patient medically screened. kdr 18:27 Data reviewed: vital signs, nurses notes, radiologic studies. Counseling: I had a kdr detailed discussion with the patient and/or guardian regarding: the historical points, exam findings, and any diagnostic results supporting the discharge/admit diagnosis, lab results, radiology results, the need for outpatient follow up. Physician consultation:. Special discussion: Based on the patient's history, exam and DX evaluation, there is no indication for emergent intervention or inpatient TX. It is understood by the patient/guardian that if the SXs persist or worsen they need to return immediately for re-evaluation. I discussed with the patient/guardian in detail that at this point there is no indication for admission to the hospital. It is understood, however, that if the symptoms persist or worsen the patient needs to return immediately for re-evaluation. 08/03 14:54 Order name: CT Head C Spine; Complete Time: 16:44 em Administered Medications: No medications were administered Disposition: 08/03/20 16:46 Discharged to Home. Impression: Superficial injury of head. - Condition is Stable. - Discharge Instructions: Head Injury, Adult, [id number]. - Prescriptions for Tramadol 50 mg Oral Tablet - take 1 tablet by ORAL route every 8 hours as needed; 12 tablet. - Medication Reconciliation Form, Thank You Letter, Prescription Opioid Use form. - Follow up: Private Physician; When: 1 - 2 days; Reason: If symptoms return, Further diagnostic work-up, Recheck today's complaints, Continuance of care, Re-evaluation by your physician. - Problem is new. - Symptoms have improved. Signatures: Dispatcher [employer] EDMS Byron Yarbrough RN RN sg Ananth Wilcox MD MD kdr Munoz, Edgar, RN RN em Corrections: (The following items were deleted from the chart) 16:58 16:46 08/03/2020 16:46 Discharged to Home. Impression: Superficial injury of head. sg Condition is Stable. Forms are Medication Reconciliation Form, Thank You Letter, Antibiotic Education, Prescription Opioid Use. Follow up: Private Physician; When: 1 - 2 days; Reason: If symptoms return, Further diagnostic work-up, Recheck today's complaints, Continuance of care, Re-evaluation by your physician. Problem is new. Symptoms have improved. kdr
[2020-08-08 06:22] VITALS: TEMP 97.4; O2SAT 98
== END 2020-08-03 16:58 | disposition home or self-care (01) ==
LOC: ER 14:29
DX: S00.83XA Contusion of other part of head, initial encounter (principal); W01.198A Fall on same level from slipping, tripping and stumbling with subsequent striking against other object, initial encounter; Y93.9 Activity, unspecified; Y92.512 Supermarket, store or market as the place of occurrence of the external cause; I10 Essential (primary) hypertension; Z88.3 Allergy status to other anti-infective agents; Z88.5 Allergy status to narcotic agent; Z85.528 Personal history of other malignant neoplasm of kidney
CPT/HCPCS: 70450; 72125; 99282